=== PATIENT | female | born 1965 | race Caucasian/White ===

== ENCOUNTER 2016-11-06 11:10 | Observation (INO) ==
[2016-11-06] MEDS ORDERED: Nitroglycerin 0.4 MG TAB.SUBL SL ONE (11:14)
[2016-11-06] MEDS: Aspirin 81 MG TAB.CHEW PO ONE ×2 (11:47→11:50)
[2016-11-06 11:49] LABS: Basophils # 0.1 K/mcL (0.0-0.2); Basophils % 0.7 %; Eosinophils # 0.1 K/mcL (0.0-0.6); Eosinophils % 1.2 %; Hematocrit 36.4 % (35.3-44.9); Hemoglobin 12.7 g/dL (11.5-15.4); Immature Granulocytes % 0.5 % (0-4); Lymphocytes # 2.4 K/mcL (0.6-4.6); Lymphocytes % 28.8 %; Mean Corpuscular HGB Conc 34.9 g/dL (31.6-35.5); Mean Corpuscular Hemoglobin 31.4 pg (28.0-33.3); Mean Corpuscular Volume 89.9 fL (83.0-100.0); Mean Platelet Volume 9.6 fL (9.4-12.4); Monocytes # 0.6 K/mcL (0.0-1.3); Monocytes % 6.5 %; Neutrophils # 5.2 K/mcL (1.6-8.9); Platelet Count 268 K/mcL (140-400); Red Blood Count 4.05 M/mcL (3.82-4.97); Red Cell Distribution Width 11.9 % (11.5-14.5); Segmented Neutrophils % 62.3 %
[2016-11-06 11:54] LABS: Prothrombin Time 10.9 Seconds (9.4-12.1)
[2016-11-06 11:56] LABS: Activated Partial Thrombo Time 28.6 Seconds (26.0-36.0)
[2016-11-06 12:08] LABS: BUN/Creatinine Ratio 14 (6-26); Blood Urea Nitrogen 13 mg/dL (7-20); Calcium 9.2 mg/dL (8.6-10.8); Carbon Dioxide 20 mEq/L (19-29); Chloride 110 mEq/L (98-109); Glucose 95 mg/dL (70-99); Osmolality,Calculated 290 (280-300); Potassium 3.7 mEq/L (3.5-4.5); Sodium 140 mEq/L (136-145); eGFR For African Americans > 60 (> 60); eGFR For Non-African Americans > 60 (> 60)
[2016-11-06] MEDS ORDERED: tiZANidine 4 MG TABLET PO PRN (13:56)
[2016-11-06] MEDS: BuPROPion SR (12 HR) 150 MG TABLET PO SCH ×2 (14:23→21:23)
[2016-11-06] MEDS: *HR* OxyCODONE Immed Rel 5 MG TABLET PO PRN ×2 (14:23→23:04)
[2016-11-06] MEDS: Topiramate 25 MG TABLET PO SCH ×2 (14:23→21:22)
[2016-11-06] MEDS: ARIPiprazole 10 MG TABLET PO SCH (14:24)
[2016-11-06] MEDS: Furosemide 40 MG TABLET PO SCH (14:24)
[2016-11-06] MEDS: ALPRAZolam 1 MG TABLET PO PRN ×2 (14:26→19:44)
[2016-11-06] MEDS ORDERED: Naloxone 0.4 MG/ML INJ IVP PRN (14:51)
[2016-11-06] MEDS ORDERED: Acetaminophen 325 MG TABLET PO PRN (14:51)
[2016-11-06] MEDS: lamoTRIgine 25 MG TABLET PO SCH ×2 (16:40→23:04)
[2016-11-06] MEDS: lamoTRIgine 100 MG TABLET PO SCH ×2 (16:40→21:23)
[2016-11-06] MEDS: Ondansetron ODT 4 MG TAB.RAPDIS PO PRN (19:37)
--- NOTE | 2016-11-06 19:56 | Emergency Department Note ---
Disposition Clinical Impression: Chest pain Qualifiers: Chest pain type: unspecified Qualified Code(s): R07.9 - Chest pain, unspecified Disposition: Admitted As Inpatient Condition: Fair General Adult HPI - General Chief complaint: ED Chest Pain Stated complaint: chest pain Time Seen by Provider: 11/06/16 11:14 Source: EMS Limitations: no limitations - History of Present Illness HPI Narrative: 51-year-old female with concern for chest pain. She admits to atypical chest pain over the past 1-2 days. Chest pain is been intermittent. Today the pain was worse and associated with chest pressure. She met that she had an episode of typical chest pain on Saturday. She does have a history of having a stroke and heart attack in the past. She has poor follow-up. She has not recently stressed or cathetered. She denies fever, chills, night sweats. Pain Scale: 5 - Related Data Home Medications Medication Instructions Recorded Confirmed ALPRAZolam [Xanax 1 MG Tablet] 1 mg PO QID PRN 11/24/15 11/06/16 Aripiprazole [Abilify] 15 mg PO DAILY 03/17/16 11/06/16 Cholecalciferol (Vitamin D3) 2,000 unit PO DAILY 03/17/16 11/06/16 [Vitamin D3] Dexlansoprazole [Dexilant] 60 mg PO DAILY 03/17/16 11/06/16 Furosemide [Lasix] 40 mg PO DAILY 03/17/16 11/06/16 Prazosin HCl 2 mg PO HS 03/17/16 11/06/16 Quetiapine Fumarate [Seroquel] 400 mg PO HS 03/17/16 11/06/16 Spironolactone [Aldactone] 25 mg PO DAILY 03/17/16 11/06/16 lamoTRIgine [Lamotrigine] 25 mg PO BID 03/17/16 11/06/16 lamoTRIgine [Lamotrigine] 100 mg PO BID 03/17/16 11/06/16 Acetaminophen [Tylenol] 1,000 mg PO Q6HR PRN 11/06/16 11/06/16 Atorvastatin Calcium [Lipitor] 20 mg PO DAILY 11/06/16 11/06/16 BuPROPion SR (12 HR) [Wellbutrin 150 mg PO BID 11/06/16 11/06/16 SR] Carvedilol 12.5 mg PO BID 11/06/16 11/06/16 Losartan/HCTZ [Hyzaar 50-12.5 1 tab PO DAILY 11/06/16 11/06/16 Tablet] Ondansetron HCl [Zofran] 4 mg PO TID PRN 11/06/16 11/06/16 OxyCODONE Immed Rel [Roxicodone 5 5 mg PO Q8H PRN 11/06/16 11/06/16 MG] Tizanidine HCl [Zanaflex] 4 mg PO TID PRN 11/06/16 11/06/16 Topiramate [Topamax] 50 mg PO BID 11/06/16 11/06/16 traZODone [TraZODone] 50 mg PO HS 11/06/16 11/06/16 Previous Rx's Medication Instructions Recorded Meclizine HCl [Verticalm] 25 mg PO Q6HR #20 tablet 05/08/16 Albuterol Sulfate [Albuterol 1 puff IH Q4HR #1 hfa.aer.ad 09/07/16 Inhaler] Allergies Allergy/AdvReac Type Severity Reaction Status Date / Time aspirin Allergy Rash Verified 09/07/16 12:42 codeine Allergy Swelling Verified 09/07/16 12:42 of Lip/Tongue/Throat Cyclobenzaprine Allergy Rash Verified 09/07/16 12:42 [From Flexeril] gabapentin Allergy Rash Verified 09/07/16 12:42 hydrocodone [From Vicodin] Allergy Rash Verified 09/07/16 12:42 latex Allergy Rash Verified 09/07/16 12:42 tramadol [From Ultram] Allergy Rash Verified 09/07/16 12:42 All systems ED: reviewed and negative except as stated. Past Medical History - Past Medical History Medical history: Reports: COPD, dementia, hyperlipidemia, hypertension, myocardial infarction, other Surgical history: Reports: non-contributory Psychiatric history: Reports: ADHD, bipolar, depression, PTSD, other BOAT CARPENTER history: Reports: no BOAT CARPENTER history - Social History Smoking Status: Current every day smoker Smokeless Tobacco Status: No Alcohol use: Reports: recent Drug use: Reports: none Physical Exam - General Limitations: no limitations General appearance: alert - Head Head exam: atraumatic - Eye Eye exam: Present: normal appearance - ENT ENT exam: normal exam, normal oropharynx - Neck Neck exam: Present: normal inspection, full ROM - Chest Chest inspection: Present: normal inspection - Respiratory Respiratory exam: Present: normal lung sounds bilaterally - Cardiovascular Cardiovascular exam: Present: regular rate, normal rhythm - Abdominal Exam Abdominal exam: Present: soft, Non-Tender - Extremities Exam Extremities exam: Present: normal inspection, full ROM - Expanded Lower Extremity Exam Hip/Pelvis exam: Present: normal inspection, full ROM Upper leg exam: Present: normal inspection, full ROM Knee exam: Present: normal inspection, full ROM Lower leg exam: Present: normal inspection, full ROM Gait: observed and normal - Back Exam Back exam: Present: normal inspection, full ROM - Neurological Exam Neurological exam: Present: alert, oriented X3, CN II-XII intact - Psychiatric Psychiatric exam: Present: normal affect, normal mood - Skin Skin exam: Present: warm, dry Course Vital Signs Temperature 97.6 F 11/06/16 11:11 Pulse Rate 70 11/06/16 11:11 Respiratory Rate 18 11/06/16 11:11 Blood Pressure 94/38 11/06/16 11:11 O2 Sat by Pulse Oximetry 96 11/06/16 11:11 Temperature 97.6 F 11/06/16 11:11 Pulse Rate 73 11/06/16 15:00 Respiratory Rate 18 11/06/16 15:45 Blood Pressure 114/57 11/06/16 15:45 O2 Sat by Pulse Oximetry 96 11/06/16 15:45 Oxygen Delivery Oxygen Delivery Room Air Medical Decision Making - [facility] [place] Narrative Medical decision making narrative: Female patient who admits to both chest pain and chest pressure. No recent stressor cardiac catheterization. Aspirin and nitroglycerin administered. EKG is nondiagnostic for STEMI. Plan to proceed with admission for ACS rule out given heart score greater than 3. Patient stable at time of admission. Discussed case with hospitalist team. - Medical Records Medical records reviewed: Yes I reviewed the patient's medical records. - Lab Data Lab results reviewed: Yes I reviewed the patient's lab results. Result diagrams: 11/06/16 11:33 11/06/16 11:33 Lab Results 11/06/16 11/06/16 11/06/16 Range/Units 11:33 11:33 11:33 WBC 8.4 (4.3-11.1) K/mcL RBC 4.05 (3.82-4.97) M/mcL Hgb 12.7 (11.5-15.4) g/dL Hct 36.4 (35.3-44.9) % MCV 89.9 (83.0-100.0) fL MCH 31.4 (28.0-33.3) pg MCHC 34.9 (31.6-35.5) g/dL RDW 11.9 (11.5-14.5) % Plt Count 268 (140-400) K/mcL MPV 9.6 (9.4-12.4) fL Immature Gran % 0.5 (0-4) % Seg Neutrophils % 62.3 % Lymphocytes % 28.8 % Monocytes % 6.5 % Eosinophils % 1.2 % Basophils % 0.7 % Neutrophils # 5.2 (1.6-8.9) K/mcL Lymphocytes # 2.4 (0.6-4.6) K/mcL Monocytes # 0.6 (0.0-1.3) K/mcL Eosinophils # 0.1 (0.0-0.6) K/mcL Basophils # 0.1 (0.0-0.2) K/mcL PT 10.9 (9.4-12.1) Seconds INR 1.0 APTT 28.6 (26.0-36.0) Seconds D-Dimer 294 (0-500) ng/mLFEU Sodium 140 (136-145) mEq/L Potassium 3.7 (3.5-4.5) mEq/L Chloride 110 H (98-109) mEq/L Carbon Dioxide 20 (19-29) mEq/L BUN 13 (7-20) mg/dL Creatinine 0.93 (0.57-1.11) mg/dL Est GFR ( Amer) > 60 (> 60) Est GFR (Non-Af Amer) > 60 (> 60) BUN/Creatinine Ratio 14 (6-26) Glucose 95 (70-99) mg/dL Calculated Osmolality 290 (280-300) Calcium 9.2 (8.6-10.8) mg/dL Troponin I (0-0.03) ng/mL 11/06/16 Range/Units 11:33 WBC (4.3-11.1) K/mcL RBC (3.82-4.97) M/mcL Hgb (11.5-15.4) g/dL Hct (35.3-44.9) % MCV (83.0-100.0) fL MCH (28.0-33.3) pg MCHC (31.6-35.5) g/dL RDW (11.5-14.5) % Plt Count (140-400) K/mcL MPV (9.4-12.4) fL Immature Gran % (0-4) % Seg Neutrophils % % Lymphocytes % % Monocytes % % Eosinophils % % Basophils % % Neutrophils # (1.6-8.9) K/mcL Lymphocytes # (0.6-4.6) K/mcL Monocytes # (0.0-1.3) K/mcL Eosinophils # (0.0-0.6) K/mcL Basophils # (0.0-0.2) K/mcL PT (9.4-12.1) Seconds INR APTT (26.0-36.0) Seconds D-Dimer (0-500) ng/mLFEU Sodium (136-145) mEq/L Potassium (3.5-4.5) mEq/L Chloride (98-109) mEq/L Carbon Dioxide (19-29) mEq/L BUN (7-20) mg/dL Creatinine (0.57-1.11) mg/dL Est GFR ( Amer) (> 60) Est GFR (Non-Af Amer) (> 60) BUN/Creatinine Ratio (6-26) Glucose (70-99) mg/dL Calculated Osmolality (280-300) Calcium (8.6-10.8) mg/dL Troponin I 0.00 (0-0.03) ng/mL - Radiology Data Radiology results reviewed: Yes I reviewed the patient's radiology results. - EKG Data EKG #1 EKG results narrative: EKG shows sinus rhythm, nonspecific ST segment changes, nonspecific abnormal ECG
[2016-11-06] MEDS ORDERED: traZODone 50 MG TABLET PO SCH (21:00)
[2016-11-07 04:12] LABS: Basophils # 0.1 K/mcL (0.0-0.2); Basophils % 0.7 %; Eosinophils # 0.1 K/mcL (0.0-0.6); Eosinophils % 0.9 %; Hematocrit 38.5 % (35.3-44.9); Immature Granulocytes % 0.3 % (0-4); Lymphocytes # 1.6 K/mcL (0.6-4.6); Lymphocytes % 23.9 %; Mean Corpuscular HGB Conc 33.8 g/dL (31.6-35.5); Mean Corpuscular Hemoglobin 30.4 pg (28.0-33.3); Mean Platelet Volume 9.6 fL (9.4-12.4); Monocytes # 0.4 K/mcL (0.0-1.3); Monocytes % 6.3 %; Neutrophils # 4.6 K/mcL (1.6-8.9); Platelet Count 279 K/mcL (140-400); Red Blood Count 4.28 M/mcL (3.82-4.97); Red Cell Distribution Width 12.2 % (11.5-14.5); Segmented Neutrophils % 67.9 %
[2016-11-07 04:48] LABS: BUN/Creatinine Ratio 14 (6-26); Blood Urea Nitrogen 15 mg/dL (7-20); Calcium 9.5 mg/dL (8.6-10.8); Carbon Dioxide 24 mEq/L (19-29); Chloride 105 mEq/L (98-109); Cholesterol 300 mg/dL (< 200); Glucose 115 mg/dL (70-99); HDL Cholesterol 43 mg/dL (40-59); LDL Cholesterol,Calculated 192 mg/dL (0-99); Osmolality,Calculated 294 (280-300); Potassium 3.3 mEq/L (3.5-4.5); Sodium 141 mEq/L (136-145); Triglycerides 326 mg/dL (< 150); eGFR For African Americans > 60 (> 60); eGFR For Non-African Americans 53 (> 60)
[2016-11-07] MEDS: ALPRAZolam 1 MG TABLET PO PRN ×2 (04:53→09:53)
[2016-11-07] MEDS: Ondansetron ODT 4 MG TAB.RAPDIS PO PRN (04:54)
[2016-11-07] MEDS ORDERED: Regadenoson 0.4 MG/5 ML SYRINGE IVP ONE (06:02)
[2016-11-07] MEDS ORDERED: Cholecalciferol (D-3) 1,000 UNIT TABLET PO SCH (09:00)
[2016-11-07] MEDS ORDERED: Spironolactone 25 MG TABLET PO SCH (09:00)
[2016-11-07] MEDS ORDERED: Losartan/HCTZ 50-12.5 TABLET PO SCH (09:00)
[2016-11-07] MEDS: *HR* OxyCODONE Immed Rel 5 MG TABLET PO PRN (09:53)
[2016-11-07] MEDS: lamoTRIgine 100 MG TABLET PO SCH (09:53)
[2016-11-07] MEDS: BuPROPion SR (12 HR) 150 MG TABLET PO SCH (09:53)
[2016-11-07] MEDS: lamoTRIgine 25 MG TABLET PO SCH (09:53)
[2016-11-07] MEDS: Furosemide 40 MG TABLET PO SCH (09:53)
[2016-11-07] MEDS: Topiramate 25 MG TABLET PO SCH (09:53)
[2016-11-07] MEDS: ARIPiprazole 10 MG TABLET PO SCH (09:54)
--- NOTE | 2016-11-07 09:57 | Internal Med History&Physical ---
Date of Encounter: 11/06/16 Time of Encounter: 14:00 Assessment and Plan (1) Chest pain Current visit: Yes Status: Acute Patient presents with atypical chest pain, ongoing for the last 10 days. She does have multiple chronic complaints including neck and back pain, anxiety and depression. Continue telemetry monitoring and cycle troponins. EKG shows normal sinus rhythm with no ischemic changes. Continue beta patti, ARB, statin. We will get nuclear stress test in a.m. 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 Qualifiers: Chest pain type: precordial pain Qualified Code(s): R07.2 - Precordial pain (2) Depression Current visit: Yes Status: Chronic Patient is noted to be on multiple psychotropic medications including benzodiazepines, SSRIs and antipsychotics. Continue home medications. Qualifiers: Depression Type: unspecified Qualified Code(s): F32.9 - Major depressive disorder, single episode, unspecified (3) PTSD (post-traumatic stress disorder) Current visit: Yes Status: Chronic (4) Anxiety Current visit: Yes Status: Chronic (5) HTN (hypertension) Current visit: Yes Status: Chronic Blood pressure noted to be well controlled. Patient is also noted to be on 2 diuretics, unclear why. Continue beta patti and ARB. Qualifiers: Hypertension type: essential hypertension Qualified Code(s): I10 - Essential (primary) hypertension (6) Tobacco abuse Current visit: Yes Status: Chronic Patient reports trying to cut down on her smoking, currently down to half pack per day. Requests nicotine transdermal patch while in the hospital. Internal Medicine - H&P: HPI Chief complaint: Chest pain Admitted From: Emergency Dept Plans for Post Hospital Care: Home History of present illness: Ms. Aranda is a 51 year old female with history of chronic pain, anxiety, depression and PTSD presents with complaints of 10 day history of chest pain. Patient reports that she has had similar chest pains in the past and also had a related hospitalization, but her pain is worse and longer-lasting this time. She reports stabbing chest pain associated with heaviness, moderate to severe in intensity, radiating from the center of her chest to her mid back and sometimes feels like an "electrical shock". Chest pain is associated with anxiety and shortness of breath but no diaphoresis, nausea, vomiting, dizziness or syncope. She has been a chronic heavy smoker, smoking up to 4 packs per day but is currently down to half pack per day. Past Med Surg Social Fam HX - Past Medical History Medical history: CHF, COPD, hyperlipidemia, hypertension, other Psychiatric history: ADHD, bipolar, depression, PTSD, other - Past Surgical History Surgical History: cholecystectomy, thyroidectomy (Partial) - Social History Smoking Status: Current every day smoker Smokeless Tobacco Status: No Alcohol use: occasionally, recent Drug use: none Occupational status: disabled Current living situation: Home Activity Level: Uses cane/walker Recent Out of Country Travel Within the Last 8 Weeks: No - Family History Father Hx Family Cardiac Disorders: Yes Internal Medicine - H&P: Meds ALPRAZolam [Xanax 1 MG Tablet] 1 mg PO QID PRN 11/24/15 [History] Aripiprazole [Abilify] 15 mg PO DAILY 03/17/16 [History] Cholecalciferol (Vitamin D3) [Vitamin D3] 2,000 unit PO DAILY 03/17/16 [History] Dexlansoprazole [Dexilant] 60 mg PO DAILY 03/17/16 [History] Furosemide [Lasix] 40 mg PO DAILY 03/17/16 [History] Prazosin HCl 2 mg PO HS 03/17/16 [History] Quetiapine Fumarate [Seroquel] 400 mg PO HS 03/17/16 [History] Spironolactone [Aldactone] 25 mg PO DAILY 03/17/16 [History] lamoTRIgine [Lamotrigine] 25 mg PO BID 03/17/16 [History] lamoTRIgine [Lamotrigine] 100 mg PO BID 03/17/16 [History] Meclizine HCl [Verticalm] 25 mg PO Q6HR #20 tablet 05/08/16 [Rx] Albuterol Sulfate [Albuterol Inhaler] 1 puff IH Q4HR #1 hfa.aer.ad 09/07/16 [Rx] Acetaminophen [Tylenol] 1,000 mg PO Q6HR PRN 11/06/16 [History] Atorvastatin Calcium [Lipitor] 20 mg PO DAILY 11/06/16 [History] BuPROPion SR (12 HR) [Wellbutrin SR] 150 mg PO BID 11/06/16 [History] Carvedilol 12.5 mg PO BID 11/06/16 [History] Losartan/HCTZ [Hyzaar 50-12.5 Tablet] 1 tab PO DAILY 11/06/16 [History] Ondansetron HCl [Zofran] 4 mg PO TID PRN 11/06/16 [History] OxyCODONE Immed Rel [Roxicodone 5 MG] 5 mg PO Q8H PRN 11/06/16 [History] Tizanidine HCl [Zanaflex] 4 mg PO TID PRN 11/06/16 [History] Topiramate [Topamax] 50 mg PO BID 11/06/16 [History] traZODone [TraZODone] 50 mg PO HS 11/06/16 [History] Allergies aspirin Allergy (Verified 09/07/16 12:42) Rash codeine Allergy (Verified 09/07/16 12:42) Swelling of Lip/Tongue/Throat Cyclobenzaprine [From Flexeril] Allergy (Verified 09/07/16 12:42) Rash gabapentin Allergy (Verified 09/07/16 12:42) Rash hydrocodone [From Vicodin] Allergy (Verified 09/07/16 12:42) Rash latex Allergy (Verified 09/07/16 12:42) Rash tramadol [From Ultram] Allergy (Verified 09/07/16 12:42) Rash All Systems PM: A 10-system review of systems was performed and is negative for pertinent findings except as documented above in the HPI. - Constitutional Constitutional: no chills, no fever(s), no night sweats - EENT Eyes: no change in vision, no discharge, no pain, no photophobia Ears: no ear discharge, no ear pain, no tinnitus Nose, mouth and throat: no dysphagia, no nasal discharge, no neck pain, no sore throat - Cardiovascular Cardiovascular ROS IM: chest pain, dyspnea - Respiratory Respiratory: dyspnea - Gastrointestinal Gastrointestinal: no abdominal pain, no diarrhea, no hematemesis, no hematochezia, no melena, no nausea, no vomiting - Genitourinary Genitourinary: no change in urinary stream, no dysuria, no flank pain, no hematuria - Musculoskeletal Musculoskeletal ROS IM: back pain, neck pain, tingling - Integumentary Integumentary IM: no rash, no unusual bruising - Neurological Neurological ROS: numbness, tingling, weakness - Hematologic/Lymphatic Hematologic/Lymphatic: no easy bruising - Constitutional Vitals: Temp Pulse Resp BP Pulse Ox 98 F 80 18 119/65 97 11/07/16 07:00 11/07/16 07:00 11/07/16 07:00 11/07/16 07:00 11/07/16 07:00 General appearance: Present: A&O X 3, answers questions appropriately - Respiratory Respiratory exam: Present: CTAB. Absent: accessory muscle use, rales, rhonchi, wheezes - Cardiovascular Cardiovascular exam: Present: RRR, +S1, +S2. Absent: diastolic murmur, gallop, rubs, systolic murmur - GI/Abdominal GI/Abdominal exam: Present: normal bowel sounds, soft, no peritoneal signs. Absent: distended, tenderness - Extremities Exam Extremities exam: Present: full ROM, warm, radial pulses palpable and symetrical. Absent: calf tenderness, cyanotic, pedal edema - Neurological Exam Neurological exam: Present: CN II-XII intact, oriented X3, no focal deficits. Absent: pronater drift, facial droop, speech deficit - Skin Skin exam: Present: dry, intact Internal Med - H&P Results - Labs CBC & Chem 7: 11/07/16 03:27 11/07/16 03:27 Labs: Short CBC 11/07/16 Range/Units 03:27 WBC 6.8 (4.3-11.1) K/mcL Hgb 13.0 (11.5-15.4) g/dL Hct 38.5 (35.3-44.9) % Plt Count 279 (140-400) K/mcL Neutrophils # 4.6 (1.6-8.9) K/mcL BMP 11/07/16 03:27 Sodium 141 Potassium 3.3 L Chloride 105 Carbon Dioxide 24 BUN 15 Creatinine 1.09 Glucose 115 H Calcium 9.5 Cardiac Enzymes 11/06/16 11/07/16 11/07/16 Range/Units 17:24 00:13 03:27 Troponin I 0.00 0.00 0.00 (0-0.03) ng/mL - EKG Data -: EKG Interpreted by Myself EKG shows normal: sinus rhythm Rate: normal
--- NOTE | 2016-11-07 11:29 | Electrocardiograph Report ---
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
[2016-11-07 11:44] VITALS: BP 124/78
--- NOTE | 2016-11-07 11:53 | Nuclear Medicine Stress Report ---
Regadenoson Nuclear Stress Name: Yue Aranda Date of Study: 11/07/2016 Date: 1965 Ht: 60.0 in Medical Record#: [id number] Age: 51 Wt: 182.0 lb Gender: Female Order #: [id number] Location: [facility] Room: [facility] Supervising Provider: Uvaldo Rolon CNP Reading Physician: Jerod Darden DO, FAC, FASNM Ordering Physician: Anson Lares MD Primary Care Physician: None Stress Technologist: Jeremias Castellanos CRT Recreational Therapy Technician: Charlene Ponce Indications: Chest Pain Impression: Pharmacologic stress ECG is negative for ischemia at level of heart rate achieved. Gated EF = 69%. Small size, mild intensity, reversible apical anterior defect, which spares the apex. Although this could represent a small area of ischemia, I suspect it is due to artifact. History: Hypertension Hypercholesteremia History of Smoking Stress Test Summary: Stress Test Type: Pharmacologic Regadenoson 0.4mg/5ml given IV Baseline Information: Initial Heart Rate: 82 Blood Pressure: 117/74 Stress Information: Stress Time: 4 min 00 sec Test Terminated Due to (primary): As per protocol Maximum Blood Pressure: 112/70 Maximum Heart Rate: 98 Percent Maximum Heart Rate Achieved: 59 Double Product: 12407 METS Reached: 1 Symptoms: Nausea, Vomiting Nuclear Summary: SPECT myocardial perfusion imaging using Tc99m Sestamibi given intravenously was performed at rest and following cardiac stress testing. The resting images were obtained following initial dose of 11.8 mCi. Following stress an additional dose of 31 mCi was given at peak exercise or 30 seconds post regadenoson infusion. Medication Given: Time Medication Dose Units Route 08:00 Aminophylline 5 ml IV Findings: Stress Note * Resting ECG demonstrated normal sinus rhythm. * No baseline arrhythmias were noted. * Pharmacologic stress ECG is negative for ischemia at level of heart rate achieved. * No arrhythmias were noted during stress. * Patient had no chest pain during stress. * Normal hemodynamic responses to pharmacologic stress. Study Quality * Study quality is average. Gated EF % * Gated EF = 69%. Left Ventricle * The left ventricle is not dilated. LVEDV = 54 mL. NORMALS * Normal wall motion. * Normal Segmental Perfusion in rest. Anterior Perfusion Stress * The apical anterior segment shows a mild reduction in perfusion. TID * No evidence of transient ischemic dilatation. TID ratio = 1.07. Lung Uptake * There is no evidence of increase lung uptake. Updated by Jerod Darden DO, ULISES, LUIS, VENU on 11/07/2016 11:47:18 AM electronically signed on 11/07/2016 11:48:09 AM with status of Final
--- NOTE | 2016-11-07 13:01 | Discharge Summary ---
Date of Encounter: 11/07/16 Time of Encounter: 12:58 - Discharge Diagnosis (1) Chest pain Priority: Primary Status: Acute Qualifiers: Chest pain type: intercostal pain Qualified Code(s): R07.82 - Intercostal pain (2) HTN (hypertension) Priority: Secondary Status: Chronic Qualifiers: Hypertension type: essential hypertension Qualified Code(s): I10 - Essential (primary) hypertension (3) Tobacco abuse Priority: Secondary Status: Chronic - Discharge Medications Home Medications: ALPRAZolam [Xanax 1 MG Tablet] 1 mg PO QID PRN 11/24/15 [History] Aripiprazole [Abilify] 15 mg PO DAILY 03/17/16 [History] Cholecalciferol (Vitamin D3) [Vitamin D3] 2,000 unit PO DAILY 03/17/16 [History] Dexlansoprazole [Dexilant] 60 mg PO DAILY 03/17/16 [History] Furosemide [Lasix] 40 mg PO DAILY 03/17/16 [History] Prazosin HCl 2 mg PO HS 03/17/16 [History] Quetiapine Fumarate [Seroquel] 400 mg PO HS 03/17/16 [History] Spironolactone [Aldactone] 25 mg PO DAILY 03/17/16 [History] lamoTRIgine [Lamotrigine] 25 mg PO BID 03/17/16 [History] lamoTRIgine [Lamotrigine] 100 mg PO BID 03/17/16 [History] Meclizine HCl [Verticalm] 25 mg PO Q6HR #20 tablet 05/08/16 [Rx] Albuterol Sulfate [Albuterol Inhaler] 1 puff IH Q4HR #1 hfa.aer.ad 09/07/16 [Rx] Acetaminophen [Tylenol] 1,000 mg PO Q6HR PRN 11/06/16 [History] Atorvastatin Calcium [Lipitor] 20 mg PO DAILY 11/06/16 [History] BuPROPion SR (12 HR) [Wellbutrin SR] 150 mg PO BID 11/06/16 [History] Carvedilol 12.5 mg PO BID 11/06/16 [History] Losartan/HCTZ [Hyzaar 50-12.5 Tablet] 1 tab PO DAILY 11/06/16 [History] Ondansetron HCl [Zofran] 4 mg PO TID PRN 11/06/16 [History] OxyCODONE Immed Rel [Roxicodone 5 MG] 5 mg PO Q8H PRN 11/06/16 [History] Tizanidine HCl [Zanaflex] 4 mg PO TID PRN 11/06/16 [History] Topiramate [Topamax] 50 mg PO BID 11/06/16 [History] traZODone [TraZODone] 50 mg PO HS 11/06/16 [History] Allergies/Adverse Reactions: Allergies aspirin Allergy (Verified 09/07/16 12:42) Rash codeine Allergy (Verified 09/07/16 12:42) Swelling of Lip/Tongue/Throat Cyclobenzaprine [From Flexeril] Allergy (Verified 09/07/16 12:42) Rash gabapentin Allergy (Verified 09/07/16 12:42) Rash hydrocodone [From Vicodin] Allergy (Verified 09/07/16 12:42) Rash latex Allergy (Verified 09/07/16 12:42) Rash tramadol [From Ultram] Allergy (Verified 09/07/16 12:42) Rash Procedures/tests Complete & Pending: Procedures Performed prior 72 hours Category Date Time Status NM esteban perf SPECT multi [NM] Routine Exams 11/06/16 14:53 Taken SP pharm nuclear stress Routine Y 11/07/16 07:00 Completed - Notes to Outpatient Provider 1. Consider Holter monitoring testing as an outpatient for her palpitations and lightheadedness. 2. Consider increasing the dose of omeprazole to twice a day given her chest pain that is burning in sensation in the middle of her chest. Date of admission: 11/06/16 12:50 Primary care physician: PCP NO Discharging clinician: Anson Lares Anticipated date of discharge: 11/07/16 - Patient Status Disposition: Home, Self-Care Condition: Good Functional capacity at discharge: independent ambulation Overall status at discharge: patient is progressing back to baseline - Discharge Instructions Follow Up With: Jose Eduardo Page [Non-Partnered Physician] - 11/22/16 11:30 am Forms: ED Satisfaction Letter - Diet and Activity Activity: increase activity as tolerated Diet: low fat, low cholesterol, low salt diet Hospital course: Ms. Aranda is a 51 year old female with a history of hypertension and tobacco abuse, anxiety and PTSD who presented to the emergency room due to chest pain that has been going on since Saturday. Patient was placed under observation. Cardiac enzymes were cycled and after day were negative, the patient underwent a pharmacological stress test. Follow-up logical stress test reveals a very small, reversible perfusion defect. According to the feet, this is more consistent with an artifact than reversible ischemia. Patient states that she has an appointment with cardiology coming up soon. She has been instructed to discuss with her design maintenance engineer regarding her palpitations and stabbing chest pains. On exam, patient does have reproducible chest wall tenderness in the middle of the chest. Counseled regarding smoking cessation. - Time Spent with Patient Total time spent providing and/or coordinating discharge services: - Constitutional Vitals: Temp Pulse Resp BP Pulse Ox 98.1 F 74 18 124/78 96 11/07/16 11:43 11/07/16 11:43 11/07/16 11:43 11/07/16 11:43 11/07/16 11:43 General appearance: Present: A&O X 3, answers questions appropriately Exam: Gen.: Lying in bed. No acute distress. Chest: Clear to auscultation bilaterally. No adventitious sounds present. Reproducible midline chest wall tenderness present. CVS: First and second heart sounds present. No murmurs, rubs or gallops.
[2016-11-07] MEDS ORDERED: Levalbuterol Neb 1.25 MG/3 ML IH ONE (22:54)
== END 2016-11-07 15:38 | disposition home or self-care (01) ==
LOC: 2NENU 11:10 → EMEROO 11:10 → 2NENU 13:24
PROVIDERS: ADMIT Internal Medicine; ATTEND Internal Medicine Sleep Medicine

== ENCOUNTER 2016-11-12 10:59 | Observation (INO) ==
--- NOTE | 2016-11-12 11:07 | Emergency Department Note ---
START Narrative - START START: Start note: The patient was seen in the hallway due to lack of available medical beds. She states she went to bed at 11 PM last night without symptoms. She awoke at 8 AM which is 3 hours prior to arrival with symptoms. She states she feels strange. She has left-sided weakness, especially her arm. Her speech is slurred. Acute stroke alert was not activated due to onset of symptoms and completely certain-possibly as long as 12 hours ago. Initial orders placed. EKG reviewed by me
--- NOTE | 2016-11-12 11:26 | Emergency Department Note ---
Disposition Clinical Impression: Transient cerebral ischemia Disposition: Admitted As Inpatient Condition: Fair General Adult HPI - General Chief complaint: ED Neuro Symptoms/Deficit Stated complaint: neuro Time Seen by Provider: 11/12/16 11:04 Source: patient, EMS Limitations: no limitations - History of Present Illness Pain Scale: 0 - Related Data Home Medications Medication Instructions Recorded Confirmed ALPRAZolam [Xanax 1 MG Tablet] 1 mg PO QID PRN 11/24/15 11/12/16 Aripiprazole [Abilify] 15 mg PO DAILY 03/17/16 11/12/16 Cholecalciferol (Vitamin D3) 2,000 unit PO DAILY 03/17/16 11/12/16 [Vitamin D3] Dexlansoprazole [Dexilant] 60 mg PO DAILY 03/17/16 11/12/16 Furosemide [Lasix] 40 mg PO DAILY 03/17/16 11/12/16 Prazosin HCl 2 mg PO HS 03/17/16 11/12/16 Quetiapine Fumarate [Seroquel] 400 mg PO HS 03/17/16 11/12/16 Spironolactone [Aldactone] 25 mg PO DAILY 03/17/16 11/12/16 lamoTRIgine [Lamotrigine] 25 mg PO BID 03/17/16 11/12/16 lamoTRIgine [Lamotrigine] 100 mg PO BID 03/17/16 11/12/16 Acetaminophen [Tylenol] 1,000 mg PO Q6HR PRN 11/06/16 11/12/16 Atorvastatin Calcium [Lipitor] 20 mg PO DAILY 11/06/16 11/12/16 BuPROPion SR (12 HR) [Wellbutrin 150 mg PO BID 11/06/16 11/12/16 SR] Carvedilol 12.5 mg PO BID 11/06/16 11/12/16 Losartan/HCTZ [Hyzaar 50-12.5 1 tab PO DAILY 11/06/16 11/12/16 Tablet] Ondansetron HCl [Zofran] 4 mg PO TID PRN 11/06/16 11/12/16 OxyCODONE Immed Rel [Roxicodone 5 5 mg PO Q8H PRN 11/06/16 11/12/16 MG] Tizanidine HCl [Zanaflex] 4 mg PO TID PRN 11/06/16 11/12/16 Topiramate [Topamax] 50 mg PO BID 11/06/16 11/12/16 traZODone [TraZODone] 50 mg PO HS 11/06/16 11/12/16 Previous Rx's Medication Instructions Recorded Meclizine HCl [Verticalm] 25 mg PO Q6HR #20 tablet 05/08/16 Albuterol Sulfate [Albuterol 1 puff IH Q4HR #1 hfa.aer.ad 09/07/16 Inhaler] Allergies Allergy/AdvReac Type Severity Reaction Status Date / Time aspirin Allergy Rash Verified 09/07/16 12:42 codeine Allergy Swelling Verified 09/07/16 12:42 of Lip/Tongue/Throat Cyclobenzaprine Allergy Rash Verified 09/07/16 12:42 [From Flexeril] gabapentin Allergy Rash Verified 09/07/16 12:42 hydrocodone [From Vicodin] Allergy Rash Verified 09/07/16 12:42 latex Allergy Rash Verified 09/07/16 12:42 tramadol [From Ultram] Allergy Rash Verified 09/07/16 12:42 Past Medical History - Past Medical History Medical history: Reports: CHF, COPD, CVA, hyperlipidemia, hypertension, other Surgical history: Reports: cholecystectomy, thyroidectomy (Partial) Psychiatric history: Reports: ADHD, bipolar, depression, PTSD, 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 - Social History Smoking Status: Current every day smoker Smokeless Tobacco Status: No Alcohol use: Reports: occasionally Drug use: Reports: none Physical Exam - General Limitations: no limitations General appearance: alert, in no apparent distress Course Vital Signs Temperature 97.6 F 11/12/16 11:01 Pulse Rate 84 11/12/16 11:01 Respiratory Rate 16 11/12/16 11:01 Blood Pressure 152/83 11/12/16 11:01 O2 Sat by Pulse Oximetry 98 11/12/16 11:01 Temperature 98.0 F 11/12/16 19:20 Pulse Rate 82 11/12/16 19:20 Respiratory Rate 16 11/12/16 20:36 Blood Pressure 144/76 11/12/16 19:20 O2 Sat by Pulse Oximetry 96 11/12/16 20:36 Oxygen Delivery Oxygen Delivery Room Air Medical Decision Making - Lab Data Result diagrams: 11/12/16 11:54 11/12/16 11:54 Lab Results 11/12/16 11/12/16 11/12/16 Range/Units 11:03 11:54 11:54 WBC 5.2 (4.3-11.1) K/mcL RBC 3.76 L (3.82-4.97) M/mcL Hgb 11.8 (11.5-15.4) g/dL Hct 34.6 L (35.3-44.9) % MCV 92.0 (83.0-100.0) fL MCH 31.4 (28.0-33.3) pg MCHC 34.1 (31.6-35.5) g/dL RDW 12.2 (11.5-14.5) % Plt Count 277 (140-400) K/mcL MPV 9.3 L (9.4-12.4) fL Immature Gran % 0.6 (0-4) % Seg Neutrophils % 45.1 % Lymphocytes % 42.6 % Monocytes % 8.6 % Eosinophils % 2.1 % Basophils % 1.0 % Neutrophils # 2.4 (1.6-8.9) K/mcL Lymphocytes # 2.2 (0.6-4.6) K/mcL Monocytes # 0.5 (0.0-1.3) K/mcL Eosinophils # 0.1 (0.0-0.6) K/mcL Basophils # 0.1 (0.0-0.2) K/mcL Sodium 141 (136-145) mEq/L Potassium 3.6 (3.5-4.5) mEq/L Chloride 107 (98-109) mEq/L Carbon Dioxide 27 (19-29) mEq/L BUN 23 H (7-20) mg/dL Creatinine 0.99 (0.57-1.11) mg/dL Est GFR ( Amer) > 60 (> 60) Est GFR (Non-Af Amer) 59 L (> 60) BUN/Creatinine Ratio 23 (6-26) Glucose 93 (70-99) mg/dL POC Glucose 94 H (58-89) Calculated Osmolality 295 (280-300) Calcium 8.9 (8.6-10.8) mg/dL Total Bilirubin 0.2 (0.2-1.2) mg/dL AST 31 (5-34) Units/L ALT 39 (0-55) Units/L Alkaline Phosphatase 126 (38-126) Units/L Troponin I (0-0.03) ng/mL Serum Total Protein 6.8 (6.0-8.3) g/dL Albumin 3.4 L (3.5-5.0) g/dL Globulin 3.4 (2.4-3.5) g/dL Albumin/Globulin Ratio 1.0 L (1.1-2.2) 11/12/16 Range/Units 11:54 WBC (4.3-11.1) K/mcL RBC (3.82-4.97) M/mcL Hgb (11.5-15.4) g/dL Hct (35.3-44.9) % MCV (83.0-100.0) fL MCH (28.0-33.3) pg MCHC (31.6-35.5) g/dL RDW (11.5-14.5) % Plt Count (140-400) K/mcL MPV (9.4-12.4) fL Immature Gran % (0-4) % Seg Neutrophils % % Lymphocytes % % Monocytes % % Eosinophils % % Basophils % % Neutrophils # (1.6-8.9) K/mcL Lymphocytes # (0.6-4.6) K/mcL Monocytes # (0.0-1.3) K/mcL Eosinophils # (0.0-0.6) K/mcL Basophils # (0.0-0.2) K/mcL Sodium (136-145) mEq/L Potassium (3.5-4.5) mEq/L Chloride (98-109) mEq/L Carbon Dioxide (19-29) mEq/L BUN (7-20) mg/dL Creatinine (0.57-1.11) mg/dL Est GFR ( Amer) (> 60) Est GFR (Non-Af Amer) (> 60) BUN/Creatinine Ratio (6-26) Glucose (70-99) mg/dL POC Glucose (58-89) Calculated Osmolality (280-300) Calcium (8.6-10.8) mg/dL Total Bilirubin (0.2-1.2) mg/dL AST (5-34) Units/L ALT (0-55) Units/L Alkaline Phosphatase (38-126) Units/L Troponin I 0.00 (0-0.03) ng/mL Serum Total Protein (6.0-8.3) g/dL Albumin (3.5-5.0) g/dL Globulin (2.4-3.5) g/dL Albumin/Globulin Ratio (1.1-2.2) Attestation Statement - Attestation Attestation: I examined this patient and my medical decision-making was reviewed with the Resident Physician. I agree with the documented findings, disposition and treatment plan as described except to the extent set forth below. [id number] time provided Patient seen and evaluated in conjunction with the resident physician Dr. Tompkins. See my start note for further details
--- NOTE | 2016-11-12 11:37 | Emergency Department Note ---
Disposition Clinical Impression: Transient cerebral ischemia Qualifiers: Transient cerebral ischemia type: other Qualified Code(s): G45.8 - Other transient cerebral ischemic attacks and related syndromes Disposition: Admitted As Inpatient Condition: Fair Referrals: NO,PCP [Primary Care Provider] - Forms: ED Satisfaction Letter Time of Disposition: 12:56 Neuro HPI - General Chief Complaint: ED Neuro Symptoms/Deficit Stated Complaint: neuro Time Seen by Provider: 11/12/16 11:04 Source: patient, EMS Limitations: no limitations Nursing Notes Reviewed: Yes Vital Signs Reviewed: Yes - History of Present Illness HPI Narrative: 51-year-old female with CHF, HTN, HLD, COPD complaining of left-sided blurry vision, slurred speech and facial droop, this was noted per her this morning at 8 AM, when she woke up, she did wake up with symptoms. Patient went to bed at 11:00p yesterday asymptomatic. Patient states that her symptoms have been improving. She was recently admitted for chest pain last week, they said that they found an area of blockage, on records review showed an atypical stress test however was discharged with plan for outpatient left heart catheter. Patient denies any chest pain abdominal pain or headache at this time. She states that her left side feels somewhat weaker. She denies dysuria hematuria, weight changes, nausea, vomiting, diarrhea, constipation. Symptom Onset Unknown: Yes Timing confirmed by: spouse Location: left face, left arm History of same: No Severity: mild Quality: weakness Symptoms Improving: Yes Improves with: time Worsens with: none Context: present upon awakening On Anticoagulants: No - Related Data Home Medications: Home Medications Medication Instructions Recorded Confirmed ALPRAZolam [Xanax 1 MG Tablet] 1 mg PO QID PRN 11/24/15 11/06/16 Aripiprazole [Abilify] 15 mg PO DAILY 03/17/16 11/06/16 Cholecalciferol (Vitamin D3) 2,000 unit PO DAILY 03/17/16 11/06/16 [Vitamin D3] Dexlansoprazole [Dexilant] 60 mg PO DAILY 03/17/16 11/06/16 Furosemide [Lasix] 40 mg PO DAILY 03/17/16 11/06/16 Prazosin HCl 2 mg PO HS 03/17/16 11/06/16 Quetiapine Fumarate [Seroquel] 400 mg PO HS 03/17/16 11/06/16 Spironolactone [Aldactone] 25 mg PO DAILY 03/17/16 11/06/16 lamoTRIgine [Lamotrigine] 25 mg PO BID 03/17/16 11/06/16 lamoTRIgine [Lamotrigine] 100 mg PO BID 03/17/16 11/06/16 Acetaminophen [Tylenol] 1,000 mg PO Q6HR PRN 11/06/16 11/06/16 Atorvastatin Calcium [Lipitor] 20 mg PO DAILY 11/06/16 11/06/16 BuPROPion SR (12 HR) [Wellbutrin 150 mg PO BID 11/06/16 11/06/16 SR] Carvedilol 12.5 mg PO BID 11/06/16 11/06/16 Losartan/HCTZ [Hyzaar 50-12.5 1 tab PO DAILY 11/06/16 11/06/16 Tablet] Ondansetron HCl [Zofran] 4 mg PO TID PRN 11/06/16 11/06/16 OxyCODONE Immed Rel [Roxicodone 5 5 mg PO Q8H PRN 11/06/16 11/06/16 MG] Tizanidine HCl [Zanaflex] 4 mg PO TID PRN 11/06/16 11/06/16 Topiramate [Topamax] 50 mg PO BID 11/06/16 11/06/16 traZODone [TraZODone] 50 mg PO HS 11/06/16 11/06/16 Previous Rx's Medication Instructions Recorded Meclizine HCl [Verticalm] 25 mg PO Q6HR #20 tablet 05/08/16 Albuterol Sulfate [Albuterol 1 puff IH Q4HR #1 hfa.aer.ad 09/07/16 Inhaler] Allergies/Adverse Reactions: Allergies Allergy/AdvReac Type Severity Reaction Status Date / Time aspirin Allergy Rash Verified 09/07/16 12:42 codeine Allergy Swelling Verified 09/07/16 12:42 of Lip/Tongue/Throat Cyclobenzaprine Allergy Rash Verified 09/07/16 12:42 [From Flexeril] gabapentin Allergy Rash Verified 09/07/16 12:42 hydrocodone [From Vicodin] Allergy Rash Verified 09/07/16 12:42 latex Allergy Rash Verified 09/07/16 12:42 tramadol [From Ultram] Allergy Rash Verified 09/07/16 12:42 All systems ED: reviewed and negative except as stated. Constitutional: Reports: weakness. Denies: fever, chills Cardiovascular: Denies: chest pain Respiratory: Denies: cough, dyspnea Gastrointestinal: Denies: abdominal pain, nausea Genitourinary: Denies: urgency, dysuria Musculoskeletal: Denies: back pain Neurological: Reports: as per HPI, weakness. Denies: headache, paresthesias, confusion, abnormal gait Psychiatric: Denies: anxiety, depression Past Medical History - Past Medical History Attestation: Yes The following information was validated with the patient. 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 - Social History Smoking Status: Current every day smoker Smokeless Tobacco Status: No Alcohol use: Reports: occasionally Drug use: Reports: none Physical Exam Constitutional: alert and oriented, in NAD, vital signs reviewed and wnl HEENT: NCAT, sclera anicteric, PERRLA bilaterally, EOMI Neck: normal inspection, neck is supple, trachea midline Resp: normal chest inspection, CTA bilaterally, no resp distress CV: RRR, no m/g/r GI: normal inspection, Soft, NTND, BS present Back: normal inspection, no tenderness to palpation Neuro: A&O3, gait normal, CN II-XII grossly intact bilaterally, DTRs +2/4 bilateral UE and LE, 5/5 MS bilateral UE and LE, +left arm droop slight, finger to nose intact, MINDI intact and wnl MSK: normal inspection, bilateral UE and LE with normal ROM Psych: normal mood, normal affect Skin: No rashes, skin warm, dry, intact - General Limitations: no limitations General appearance: alert, in no apparent distress Course Course Narrative: 51-year-old female with signs and symptoms concerning of acute CVA however her symptoms have been improving, and she woke up with symptoms last and well was approximately 11 PM last night, therefore the patient is outside window for stroke alert for greater than 12 hours, we will get a stat CT scan, basic lab work including CBC CMP troponin, EKG and reassess. - Reevaluation(s) Reevaluation #1: I reevaluated the patient, and I will give her an NIH of 0, she has no appreciable deficits, her CT scan was negative, I spoke with Dr. 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 sheehan she will admit the patient at this point concerning for CVA versus TIA, admission for stroke rule out MRI is hemodynamically stable at the time of ED disposition Time: 12:55 Vital Signs Temperature 97.6 F 11/12/16 11:01 Pulse Rate 84 11/12/16 11:01 Respiratory Rate 16 11/12/16 11:01 Blood Pressure 152/83 11/12/16 11:01 O2 Sat by Pulse Oximetry 98 11/12/16 11:01 Temperature 97.6 F 11/12/16 11:01 Pulse Rate 84 11/12/16 11:01 Respiratory Rate 16 11/12/16 11:01 Blood Pressure 152/83 11/12/16 11:01 O2 Sat by Pulse Oximetry 98 11/12/16 11:01 Oxygen Delivery Oxygen Delivery Room Air Neuro Symptoms/Deficit - MDM Narrative Medical decision making narrative: 51-year-old female with possible TIA, stroke symptoms have improved, last known well was 12 hours prior to ED arrival, CT negative, aspirin withheld due to the 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 - Lab Data Lab results reviewed: Yes I reviewed the patient's lab results. Result diagrams: 11/12/16 11:54 11/12/16 11:54 Lab Results 11/12/16 11/12/16 11/12/16 Range/Units 11:03 11:54 11:54 WBC 5.2 (4.3-11.1) K/mcL RBC 3.76 L (3.82-4.97) M/mcL Hgb 11.8 (11.5-15.4) g/dL Hct 34.6 L (35.3-44.9) % MCV 92.0 (83.0-100.0) fL MCH 31.4 (28.0-33.3) pg MCHC 34.1 (31.6-35.5) g/dL RDW 12.2 (11.5-14.5) % Plt Count 277 (140-400) K/mcL MPV 9.3 L (9.4-12.4) fL Immature Gran % 0.6 (0-4) % Seg Neutrophils % 45.1 % Lymphocytes % 42.6 % Monocytes % 8.6 % Eosinophils % 2.1 % Basophils % 1.0 % Neutrophils # 2.4 (1.6-8.9) K/mcL Lymphocytes # 2.2 (0.6-4.6) K/mcL Monocytes # 0.5 (0.0-1.3) K/mcL Eosinophils # 0.1 (0.0-0.6) K/mcL Basophils # 0.1 (0.0-0.2) K/mcL Sodium 141 (136-145) mEq/L Potassium 3.6 (3.5-4.5) mEq/L Chloride 107 (98-109) mEq/L Carbon Dioxide 27 (19-29) mEq/L BUN 23 H (7-20) mg/dL Creatinine 0.99 (0.57-1.11) mg/dL Est GFR ( Amer) > 60 (> 60) Est GFR (Non-Af Amer) 59 L (> 60) BUN/Creatinine Ratio 23 (6-26) Glucose 93 (70-99) mg/dL POC Glucose 94 H (58-89) Calculated Osmolality 295 (280-300) Calcium 8.9 (8.6-10.8) mg/dL Total Bilirubin 0.2 (0.2-1.2) mg/dL AST 31 (5-34) Units/L ALT 39 (0-55) Units/L Alkaline Phosphatase 126 (38-126) Units/L Serum Total Protein 6.8 (6.0-8.3) g/dL Albumin 3.4 L (3.5-5.0) g/dL Globulin 3.4 (2.4-3.5) g/dL Albumin/Globulin Ratio 1.0 L (1.1-2.2) - Radiology Data Radiology results reviewed: Yes I reviewed the patient's radiology results. Head CT 11/12/16 11:04 IMPRESSION: No acute intracranial abnormality. D/ / Zhou Egan MD / Zhou Egan MD Interpreting Provider: Zhou Egan MD - EKG Data EKG attestation: Yes I reviewed and interpreted this EKG. EKG shows normal: sinus rhythm (90 bpm ME 158 QRS 93 QTC 410 inferior Q waves in leads 3 seen on previous EKG, no new ST segment elevations) Q waves: III Interpretation: nonspecific ST-T wave changes NIH Stroke Scale - Level of Consciousness LOC: Alert - LOC Questions LOC Questions: Answers both correctly - LOC Commands LOC Commands: Performs both correctly - Best Gaze Best Gaze: Normal - Visual Visual: No visual loss - Facial Palsy Facial Palsy: Normal - Motor Arms Motor Arm-Left: Drift, does NOT hit bed Motor Arm-Right: No drift for 10 seconds - Motor Legs Motor Leg-Left: No drift for 5 seconds Motor Leg-Right: No drift for 5 seconds - Limb Ataxia Limb Ataxia: Absent of affected limb too weak to perform exam - Sensory Sensory: Normal - Best Language Best Language: No aphasia - Dysarthria Dysarthria: Normal - Extinction and Inattention Extinction and Inattention: Normal - NIHSS Total Score NIHSS Total Score: 1 TPA Checklist - LKW: 3-4.5 hrs Add. Warnings/Precautions Patient/family understanding: The patient/family members have been counseled and understood the risk, benefit , and alternatives of treatment.
--- NOTE | 2016-11-12 11:51 | Electrocardiograph Report ---
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
[2016-11-12 12:03] LABS: Basophils # 0.1 K/mcL (0.0-0.2); Eosinophils # 0.1 K/mcL (0.0-0.6); Eosinophils % 2.1 %; Hematocrit 34.6 % (35.3-44.9); Hemoglobin 11.8 g/dL (11.5-15.4); Immature Granulocytes % 0.6 % (0-4); Lymphocytes # 2.2 K/mcL (0.6-4.6); Lymphocytes % 42.6 %; Mean Corpuscular HGB Conc 34.1 g/dL (31.6-35.5); Mean Corpuscular Hemoglobin 31.4 pg (28.0-33.3); Mean Platelet Volume 9.3 fL (9.4-12.4); Monocytes # 0.5 K/mcL (0.0-1.3); Monocytes % 8.6 %; Neutrophils # 2.4 K/mcL (1.6-8.9); Platelet Count 277 K/mcL (140-400); Red Blood Count 3.76 M/mcL (3.82-4.97); Red Cell Distribution Width 12.2 % (11.5-14.5); Segmented Neutrophils % 45.1 %
[2016-11-12 12:15] LABS: Alanine Aminotransferase 39 Units/L (0-55); Albumin 3.4 g/dL (3.5-5.0); Alkaline Phosphatase 126 Units/L (38-126); Aspartate Amino Transferase 31 Units/L (5-34); BUN/Creatinine Ratio 23 (6-26); Bilirubin,Total 0.2 mg/dL (0.2-1.2); Blood Urea Nitrogen 23 mg/dL (7-20); Calcium 8.9 mg/dL (8.6-10.8); Carbon Dioxide 27 mEq/L (19-29); Chloride 107 mEq/L (98-109); Globulin 3.4 g/dL (2.4-3.5); Glucose 93 mg/dL (70-99); Osmolality,Calculated 295 (280-300); Potassium 3.6 mEq/L (3.5-4.5); Sodium 141 mEq/L (136-145); Total Protein 6.8 g/dL (6.0-8.3); eGFR For African Americans > 60 (> 60); eGFR For Non-African Americans 59 (> 60)
[2016-11-12] MEDS ORDERED: Naloxone 0.4 MG/ML INJ IVP PRN (14:11)
[2016-11-12] MEDS ORDERED: Acetaminophen 325 MG TABLET PO PRN (14:11)
[2016-11-12] MEDS ORDERED: tiZANidine 4 MG TABLET PO PRN (14:28)
--- NOTE | 2016-11-12 15:15 | Internal Med History&Physical ---
Date of Encounter: 11/12/16 Time of Encounter: 15:03 Assessment and Plan (1) Transient cerebral ischemia Current visit: Yes Status: Acute Patient presents with left sided facial droop and slurred speech, resolved by the time of my assessment. She also reports left sided weakness, but reports this has been going on with her for months. CT of head showed no acute intracranial abnormality. EKG showed sinus rhythm. 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 Cholesterol significantly elevated on 11/07 admission, will increase atorvastatin to 40mg Daily given risk factors of HTN, obesity, smoking and FMH MRI of head and brain carotid dopplers echocardiogram Neurology consulted. Qualifiers: Transient cerebral ischemia type: unspecified Qualified Code(s): G45.9 - Transient cerebral ischemic attack, unspecified (2) Chest pain Current visit: No Status: Acute Patient reports occasional chest heaviness on and off. 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 Qualifiers: Chest pain type: precordial pain Qualified Code(s): R07.2 - Precordial pain (3) Anxiety Current visit: Yes Status: Chronic Continue home doses of medications. (4) HTN (hypertension) Current visit: Yes Status: Chronic Blood pressure has been controlled since arrival. Patient with mild renal insufficiency today with GFR of 59. Continue home doses of Coreg, and prazosin. Hold lasix, Hyzaar and spiranolactone and recheck chemistry. Qualifiers: Hypertension type: essential hypertension Qualified Code(s): I10 - Essential (primary) hypertension (5) Tobacco abuse Current visit: Yes Status: Chronic patient reports smoking < 1/2 PPD, down from a maximum of 4PPD. She is trying to quit, offered encouragement. Smoking cessation education and nicotine patch ordered. (6) DVT prophylaxis Current visit: Yes Status: Acute anti-embolic stockings lovenox 40mg SQ daily Internal Medicine - H&P: HPI Chief complaint: left sided facial droop and slurred speech Admitted From: Emergency Dept Plans for Post Hospital Care: Home History of present illness: Ms. Aranda is a 51 year old female with hypertension, hyperlipidemia, COPD, CHF, bipolar disorder, presented to the emergency department today with complaints of left-sided facial droop and weakness, slurred speech. Patient reports that she woke up this morning she was having symptoms, last known well was last evening before she went to sleep. anxiety, depression. Patient reports she was having left eye blurry vision, her mouth was drooping, and her speech was slurred, she also felt weaker on her left side. She reports occasional lightheadedness, occasional chest heaviness, denies any palpitations or shortness of breath. She denies any nausea or vomiting, abdominal pain or diarrhea. She reports chills and sweats. She was recently admitted for chest pain which revealed abnormal stress test and she was advised to get an left heart catheter as an outpatient. Evaluation in the ED included EKG which showed Sinus Rhythm with no ST elevations. Head CT showed no acut inctracranial abnormality. On exam, patient alert and oriented in no distress. Heart has regular rate and rhythm, lungs clear bilaterally to auscultation. No facial droop or speech deficit on exam. Cranial nerves intact. No pronator drift. She does have mild weakness in left upper extremity. Past Med Surg Social Fam HX - Past Medical History Medical history: CHF, COPD, CVA, hyperlipidemia, hypertension, other Psychiatric history: ADHD, bipolar, depression, PTSD, other - Past Surgical History Surgical History: cholecystectomy, orthopedic, other (neck surgery), thyroidectomy (Partial) - Social History Smoking Status: Current every day smoker Smokeless Tobacco Status: No Alcohol use: occasionally Drug use: none - Family History Father Living Status: Cause of : CVA Hx Family Cardiac Disorders: Yes Brother Living Status: Age at : 42 Cause of : OR Mother Living Status: Still Living Hx Family Cardiac Disorders: Yes Internal Medicine - H&P: Meds ALPRAZolam [Xanax 1 MG Tablet] 1 mg PO QID PRN 11/24/15 [History] Aripiprazole [Abilify] 15 mg PO DAILY 03/17/16 [History] Cholecalciferol (Vitamin D3) [Vitamin D3] 2,000 unit PO DAILY 03/17/16 [History] Dexlansoprazole [Dexilant] 60 mg PO DAILY 03/17/16 [History] Furosemide [Lasix] 40 mg PO DAILY 03/17/16 [History] Prazosin HCl 2 mg PO HS 03/17/16 [History] Quetiapine Fumarate [Seroquel] 400 mg PO HS 03/17/16 [History] Spironolactone [Aldactone] 25 mg PO DAILY 03/17/16 [History] lamoTRIgine [Lamotrigine] 25 mg PO BID 03/17/16 [History] lamoTRIgine [Lamotrigine] 100 mg PO BID 03/17/16 [History] Meclizine HCl [Verticalm] 25 mg PO Q6HR #20 tablet 05/08/16 [Rx] Albuterol Sulfate [Albuterol Inhaler] 1 puff IH Q4HR #1 hfa.aer.ad 09/07/16 [Rx] Acetaminophen [Tylenol] 1,000 mg PO Q6HR PRN 11/06/16 [History] Atorvastatin Calcium [Lipitor] 20 mg PO DAILY 11/06/16 [History] BuPROPion SR (12 HR) [Wellbutrin SR] 150 mg PO BID 11/06/16 [History] Carvedilol 12.5 mg PO BID 11/06/16 [History] Losartan/HCTZ [Hyzaar 50-12.5 Tablet] 1 tab PO DAILY 11/06/16 [History] Ondansetron HCl [Zofran] 4 mg PO TID PRN 11/06/16 [History] OxyCODONE Immed Rel [Roxicodone 5 MG] 5 mg PO Q8H PRN 11/06/16 [History] Tizanidine HCl [Zanaflex] 4 mg PO TID PRN 11/06/16 [History] Topiramate [Topamax] 50 mg PO BID 11/06/16 [History] traZODone [TraZODone] 50 mg PO HS 11/06/16 [History] Allergies aspirin Allergy (Verified 09/07/16 12:42) Rash codeine Allergy (Verified 09/07/16 12:42) Swelling of Lip/Tongue/Throat Cyclobenzaprine [From Flexeril] Allergy (Verified 09/07/16 12:42) Rash gabapentin Allergy (Verified 09/07/16 12:42) Rash hydrocodone [From Vicodin] Allergy (Verified 09/07/16 12:42) Rash latex Allergy (Verified 09/07/16 12:42) Rash tramadol [From Ultram] Allergy (Verified 09/07/16 12:42) Rash All Systems PM: A 10-system review of systems was performed and is negative for pertinent findings except as documented above in the HPI. - Constitutional Constitutional: chills, night sweats, weakness, no fever(s) - EENT Eyes: blurry vision (left eye), no change in vision, no discharge, no pain, no photophobia Ears: no ear discharge, no ear pain, no tinnitus Nose, mouth and throat: no dysphagia, no nasal discharge, no neck pain, no sore throat - Cardiovascular Cardiovascular ROS IM: chest pain (heaviness), lightheadedness, no diaphoresis, no dyspnea, no palpitations, no syncope - Respiratory Respiratory: no cough, no dyspnea, no wheezing, no excessive phlegm production - Gastrointestinal Gastrointestinal: no abdominal pain, no diarrhea, no hematemesis, no hematochezia, no melena, no nausea, no vomiting - Genitourinary Genitourinary: no change in urinary stream, no dysuria, no flank pain, no hematuria - Musculoskeletal Musculoskeletal ROS IM: no numbness, no tingling - Integumentary Integumentary IM: no rash, no unusual bruising - Neurological Neurological ROS: abnormal speech (slurred speech), focal weakness (left side), no confusion, no convulsions, no numbness, no tingling, no tremor(s) - Hematologic/Lymphatic Hematologic/Lymphatic: no easy bruising - Constitutional Vitals: Temp Pulse Resp BP Pulse Ox 97.6 F 71 16 141/72 100 11/12/16 11:01 11/12/16 12:28 11/12/16 13:18 11/12/16 13:18 11/12/16 12:28 General appearance: Present: A&O X 3, pleasant, no acute distress - Head Head exam: Present: atraumatic, normocephalic - Eye Eye exam: Present: PERRL, conjuntiva pink, sclera anicteric Pupils: Present: PERRL - Neck Neck exam general surgery: Present: supple, trachea midline. Absent: lymphadenopathy - Respiratory Respiratory exam: Present: CTAB. Absent: accessory muscle use, rales, rhonchi, wheezes - Cardiovascular Cardiovascular exam: Present: RRR, +S1, +S2. Absent: diastolic murmur, gallop, rubs, systolic murmur - GI/Abdominal GI/Abdominal exam: Present: normal bowel sounds, soft, no peritoneal signs. Absent: distended, tenderness - Extremities Exam Extremities exam: Present: warm, radial pulses palpable and symetrical. Absent : calf tenderness, cyanotic, pedal edema - Neurological Exam Neurological exam: Present: CN II-XII intact, oriented X3, no focal deficits. Absent: strengths equal and symetr throughout, facial droop, speech deficit - Expanded Neurological Exam Patient oriented to: Present: person, place, time Speech: Present: fluid speech Cranial Nerves: EOM's intact PM: Normal, gag reflex PM: Normal, nystagmus PM: Normal, tongue deviation PM: Normal Cerebellar function: finger to nose: Normal Upper motor neuron: pronator drift: Normal Neuro motor strength exam: LUE: 4, RUE: 5, LLE: 5, RLE: 5 - Skin Skin exam: Present: dry, intact Internal Med - H&P Results - Labs CBC & Chem 7: 11/12/16 11:54 11/12/16 11:54 Labs: All Lab Results (24 Hours) 11/12/16 11/12/16 11/12/16 Range/Units 11:03 11:54 11:54 WBC 5.2 (4.3-11.1) K/mcL RBC 3.76 L (3.82-4.97) M/mcL Hgb 11.8 (11.5-15.4) g/dL Hct 34.6 L (35.3-44.9) % MCV 92.0 (83.0-100.0) fL MCH 31.4 (28.0-33.3) pg MCHC 34.1 (31.6-35.5) g/dL RDW 12.2 (11.5-14.5) % Plt Count 277 (140-400) K/mcL MPV 9.3 L (9.4-12.4) fL Immature Gran % 0.6 (0-4) % Seg Neutrophils % 45.1 % Lymphocytes % 42.6 % Monocytes % 8.6 % Eosinophils % 2.1 % Basophils % 1.0 % Neutrophils # 2.4 (1.6-8.9) K/mcL Lymphocytes # 2.2 (0.6-4.6) K/mcL Monocytes # 0.5 (0.0-1.3) K/mcL Eosinophils # 0.1 (0.0-0.6) K/mcL Basophils # 0.1 (0.0-0.2) K/mcL Sodium 141 (136-145) mEq/L Potassium 3.6 (3.5-4.5) mEq/L Chloride 107 (98-109) mEq/L Carbon Dioxide 27 (19-29) mEq/L BUN 23 H (7-20) mg/dL Creatinine 0.99 (0.57-1.11) mg/dL Est GFR ( Amer) > 60 (> 60) Est GFR (Non-Af Amer) 59 L (> 60) BUN/Creatinine Ratio 23 (6-26) Glucose 93 (70-99) mg/dL POC Glucose 94 H (58-89) Calculated Osmolality 295 (280-300) Calcium 8.9 (8.6-10.8) mg/dL Total Bilirubin 0.2 (0.2-1.2) mg/dL AST 31 (5-34) Units/L ALT 39 (0-55) Units/L Alkaline Phosphatase 126 (38-126) Units/L Troponin I (0-0.03) ng/mL Serum Total Protein 6.8 (6.0-8.3) g/dL Albumin 3.4 L (3.5-5.0) g/dL Globulin 3.4 (2.4-3.5) g/dL Albumin/Globulin Ratio 1.0 L (1.1-2.2) 11/12/16 Range/Units 11:54 WBC (4.3-11.1) K/mcL RBC (3.82-4.97) M/mcL Hgb (11.5-15.4) g/dL Hct (35.3-44.9) % MCV (83.0-100.0) fL MCH (28.0-33.3) pg MCHC (31.6-35.5) g/dL RDW (11.5-14.5) % Plt Count (140-400) K/mcL MPV (9.4-12.4) fL Immature Gran % (0-4) % Seg Neutrophils % % Lymphocytes % % Monocytes % % Eosinophils % % Basophils % % Neutrophils # (1.6-8.9) K/mcL Lymphocytes # (0.6-4.6) K/mcL Monocytes # (0.0-1.3) K/mcL Eosinophils # (0.0-0.6) K/mcL Basophils # (0.0-0.2) K/mcL Sodium (136-145) mEq/L Potassium (3.5-4.5) mEq/L Chloride (98-109) mEq/L Carbon Dioxide (19-29) mEq/L BUN (7-20) mg/dL Creatinine (0.57-1.11) mg/dL Est GFR ( Amer) (> 60) Est GFR (Non-Af Amer) (> 60) BUN/Creatinine Ratio (6-26) Glucose (70-99) mg/dL POC Glucose (58-89) Calculated Osmolality (280-300) Calcium (8.6-10.8) mg/dL Total Bilirubin (0.2-1.2) mg/dL AST (5-34) Units/L ALT (0-55) Units/L Alkaline Phosphatase (38-126) Units/L Troponin I 0.00 (0-0.03) ng/mL Serum Total Protein (6.0-8.3) g/dL Albumin (3.5-5.0) g/dL Globulin (2.4-3.5) g/dL Albumin/Globulin Ratio (1.1-2.2) - Diagnostic Studies CT scan - head Additional comments: Head CT 11/12/16 11:04 IMPRESSION: No acute intracranial abnormality. D/ / Zhou Egan MD / Zhou Egan MD Interpreting Provider: Zhou Egan MD Chest x-ray Additional comments:
[2016-11-12] MEDS ORDERED: Nicotine 21 MG PATCH.TD24 TD SCH (15:30)
--- NOTE | 2016-11-12 17:13 | Neurology - Consult Note ---
Date of Encounter: 11/12/16 Time of Encounter: 17:09 Assessment and Plan (1) Left-sided weakness Current Visit: Yes Status: Acute Certainly this patient does have stroke risk factors as mentioned earlier. We will therefore obtain an MRI scan of the head, will check carotid Doppler study and echocardiogram. Stroke orders should be implemented. She is allergic to aspirin, therefore I agree with Lovenox. Risk factor management is paramount. Statin therapy and antihypertensives are indicated. Highly recommend smoking cessation. Further recommendations will be made pending the outcome of the MRI scan. History of Present Illness HPI: Ms. Aranda is a 51 year old female seen for neurologic evaluation secondary to strokelike symptoms. She informs me that shortly after 8:00 this morning when she awakened she developed left-sided weakness, numbness of the face, left jaw pain and then experienced difficulty with blurred vision and impaired speech. Most of the symptoms were resolved by the time she arrived at the ED. She still has some residual weakness of the left arm. Initial CT scan of the head was negative. She does have stroke risk factors including hypertension, hyperlipidemia, and cigarette smoking. She is apparently allergic to aspirin and was not given aspirin in the ED. Currently she is sitting up in bed awake and alert without any acute distress. Past Med Surg Social Fam HX - Past Medical History Medical history: CHF, COPD, CVA, hyperlipidemia, hypertension, other Psychiatric history: ADHD, bipolar, depression, PTSD, other - Past Surgical History Surgical History: cholecystectomy, orthopedic, other (neck surgery), thyroidectomy (Partial) - Social History Smoking Status: Current every day smoker Packs per day: 1 Smokeless Tobacco Status: No Alcohol use: occasionally Drug use: none - Family History Brother Living Status: Age at : 42 Cause of : MA Mother Living Status: Still Living Hx Family Cardiac Disorders: Yes Father Living Status: Cause of : CVA Hx Family Cardiac Disorders: Yes Medications and Allergies ALPRAZolam [Xanax 1 MG Tablet] 1 mg PO QID PRN 11/24/15 [History] Aripiprazole [Abilify] 15 mg PO DAILY 03/17/16 [History] Cholecalciferol (Vitamin D3) [Vitamin D3] 2,000 unit PO DAILY 03/17/16 [History] Dexlansoprazole [Dexilant] 60 mg PO DAILY 03/17/16 [History] Furosemide [Lasix] 40 mg PO DAILY 03/17/16 [History] Prazosin HCl 2 mg PO HS 03/17/16 [History] Quetiapine Fumarate [Seroquel] 400 mg PO HS 03/17/16 [History] Spironolactone [Aldactone] 25 mg PO DAILY 03/17/16 [History] lamoTRIgine [Lamotrigine] 25 mg PO BID 03/17/16 [History] lamoTRIgine [Lamotrigine] 100 mg PO BID 03/17/16 [History] Meclizine HCl [Verticalm] 25 mg PO Q6HR #20 tablet 05/08/16 [Rx] Albuterol Sulfate [Albuterol Inhaler] 1 puff IH Q4HR #1 hfa.aer.ad 09/07/16 [Rx] Acetaminophen [Tylenol] 1,000 mg PO Q6HR PRN 11/06/16 [History] Atorvastatin Calcium [Lipitor] 20 mg PO DAILY 11/06/16 [History] BuPROPion SR (12 HR) [Wellbutrin SR] 150 mg PO BID 11/06/16 [History] Carvedilol 12.5 mg PO BID 11/06/16 [History] Losartan/HCTZ [Hyzaar 50-12.5 Tablet] 1 tab PO DAILY 11/06/16 [History] Ondansetron HCl [Zofran] 4 mg PO TID PRN 11/06/16 [History] OxyCODONE Immed Rel [Roxicodone 5 MG] 5 mg PO Q8H PRN 11/06/16 [History] Tizanidine HCl [Zanaflex] 4 mg PO TID PRN 11/06/16 [History] Topiramate [Topamax] 50 mg PO BID 11/06/16 [History] traZODone [TraZODone] 50 mg PO HS 11/06/16 [History] Allergies aspirin Allergy (Verified 09/07/16 12:42) Rash codeine Allergy (Verified 09/07/16 12:42) Swelling of Lip/Tongue/Throat Cyclobenzaprine [From Flexeril] Allergy (Verified 09/07/16 12:42) Rash gabapentin Allergy (Verified 09/07/16 12:42) Rash hydrocodone [From Vicodin] Allergy (Verified 09/07/16 12:42) Rash latex Allergy (Verified 09/07/16 12:42) Rash tramadol [From Ultram] Allergy (Verified 09/07/16 12:42) Rash All Systems: A 10-system review of systems was performed and is negative for pertinent findings except as documented above in the HPI. Review of Systems: A 10 point review of systems is consistent with a history of present illness and otherwise negative. Physical Examination - Vital Signs Vital Signs: Initial Vital Signs Temp Pulse Resp BP Pulse Ox 97.6 F 84 16 152/83 98 11/12/16 11:01 11/12/16 11:01 11/12/16 11:01 11/12/16 11:01 11/12/16 11:01 - Exam Exam: Neurologic examination is performed and finds the following: Cerebral functions-she is alert and oriented to person place and time, follows commands and answers questions appropriately. No agnosia, aphasia, or apraxia are identified. Cranial nerve exam-pupils are equal and reactive to light and accommodation. Extraocular motility is intact. Sensory to face is intact. There is no facial asymmetry identified. I do not identify a left facial droop at this time. Hearing is intact symmetrically speech is not dysarthric. Soft palate elevates bilaterally upon phonation. Tongue protrudes midline. Cerebellar exam-no dysdiadochokinesis or dysmetria or present. She performs finger-nose and [id number] without ataxia. Motor exam-she does have giveaway weakness of the left upper extremity. However she has normal tone of the left upper extremity. She has slight giveaway weakness of the right upper extremity. She has weakness of the left lower extremity. She has normal strength of the right lower extremity. No involuntary movements or atrophy are present. Sensory exam-light touch, deep touch, vibratory, and proprioception are all intact. Deep tendon reflexes are 2/4 symmetrically throughout. No long tract signs are present. Results - Laboratory Findings CBC and BMP: 11/12/16 11:54 11/12/16 11:54 Abnormal lab findings: Abnormal lab results RBC 3.76 M/mcL (3.82-4.97) L 11/12/16 11:54 Hct 34.6 % (35.3-44.9) L 11/12/16 11:54 MPV 9.3 fL (9.4-12.4) L 11/12/16 11:54 BUN 23 mg/dL (7-20) H 11/12/16 11:54 Est GFR (Non-Af Amer) 59 (> 60) L 11/12/16 11:54 POC Glucose 94 (58-89) H 11/12/16 11:03 Albumin 3.4 g/dL (3.5-5.0) L 11/12/16 11:54 Albumin/Globulin Ratio 1.0 (1.1-2.2) L 11/12/16 11:54 Consult Discharge Plan - Plan Referrals: NO,PCP [Primary Care Provider] -
[2016-11-12] MEDS: ALPRAZolam 1 MG TABLET PO PRN (18:07)
[2016-11-12] MEDS ORDERED: Ondansetron 4 MG/2 ML VIAL IVP PRN (19:18)
[2016-11-12] MEDS: lamoTRIgine 100 MG TABLET PO SCH (20:48)
[2016-11-12] MEDS: lamoTRIgine 25 MG TABLET PO SCH (20:48)
[2016-11-12] MEDS: BuPROPion SR (12 HR) 150 MG TABLET PO SCH (20:49)
[2016-11-12] MEDS: Topiramate 25 MG TABLET PO SCH (20:49)
[2016-11-12] MEDS: traZODone 50 MG TABLET PO SCH (22:35)
[2016-11-12] MEDS: Nicotine 7 MG PATCH.TD24 TD SCH (22:39)
[2016-11-13 02:28] LABS: Basophils # 0.1 K/mcL (0.0-0.2); Basophils % 0.8 %; Eosinophils # 0.1 K/mcL (0.0-0.6); Eosinophils % 1.7 %; Hematocrit 33.9 % (35.3-44.9); Hemoglobin 11.4 g/dL (11.5-15.4); Immature Granulocytes % 0.3 % (0-4); Immature Platelets 2.3 % (1.1-6.1); Lymphocytes # 2.4 K/mcL (0.6-4.6); Lymphocytes % 35.6 %; Mean Corpuscular HGB Conc 33.6 g/dL (31.6-35.5); Mean Corpuscular Hemoglobin 30.3 pg (28.0-33.3); Mean Corpuscular Volume 90.2 fL (83.0-100.0); Mean Platelet Volume 9.4 fL (9.4-12.4); Monocytes # 0.4 K/mcL (0.0-1.3); Monocytes % 6.6 %; Neutrophils # 3.7 K/mcL (1.6-8.9); Platelet Count 320 K/mcL (140-400); Red Blood Count 3.76 M/mcL (3.82-4.97); Red Cell Distribution Width 12.1 % (11.5-14.5)
[2016-11-13 02:44] LABS: BUN/Creatinine Ratio 17 (6-26); Blood Urea Nitrogen 18 mg/dL (7-20); Carbon Dioxide 28 mEq/L (19-29); Chloride 107 mEq/L (98-109); Glucose 117 mg/dL (70-99); Osmolality,Calculated 299 (280-300); Potassium 3.3 mEq/L (3.5-4.5); Sodium 143 mEq/L (136-145); eGFR For African Americans > 60 (> 60); eGFR For Non-African Americans 56 (> 60)
[2016-11-13] MEDS: *HR* Enoxaparin 40 MG/0.4 ML SYRINGE SQ SCH (06:03)
--- NOTE | 2016-11-13 06:43 | Electrocardiograph Report ---
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
[2016-11-13] MEDS ORDERED: Furosemide 40 MG TABLET PO SCH (09:00)
[2016-11-13] MEDS ORDERED: Losartan/HCTZ 50-12.5 TABLET PO SCH (09:00)
[2016-11-13] MEDS ORDERED: Spironolactone 25 MG TABLET PO SCH (09:00)
[2016-11-13] MEDS: ARIPiprazole 10 MG TABLET PO SCH (10:15)
[2016-11-13] MEDS: lamoTRIgine 100 MG TABLET PO SCH ×2 (10:16→20:21)
[2016-11-13] MEDS: Topiramate 25 MG TABLET PO SCH ×2 (10:16→20:20)
[2016-11-13] MEDS: lamoTRIgine 25 MG TABLET PO SCH ×2 (10:16→20:21)
[2016-11-13] MEDS: BuPROPion SR (12 HR) 150 MG TABLET PO SCH ×2 (10:16→20:20)
[2016-11-13] MEDS: Dexlansoprazole [Dexilant] 60 MG PO SCH (10:17)
[2016-11-13] MEDS: Nicotine 7 MG PATCH.TD24 TD SCH (10:17)
[2016-11-13] MEDS: ALPRAZolam 1 MG TABLET PO PRN ×2 (10:53→17:43)
--- NOTE | 2016-11-13 13:33 | Carotid Imaging Report ---
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 Recommendations: After imaging the patient returned to their room. Findings Carotid Duplex: Archibald scale imaging combined with Doppler flow analysis suggests normal findings bilaterally. Right: The right proximal common carotid artery has a PSV of 80 cm/s and a EDV of 15 cm/s. The right mid common carotid artery has a PSV of 79 cm/s and a EDV of 19 cm/s. The right distal common carotid artery has a PSV of 78 cm/s and a EDV of 23 cm/s. The right bifurcation has a PSV of 68 cm/s and a EDV of 25 cm/s. The right proximal internal carotid artery has a PSV of 80 cm/s and a EDV of 30 cm/s. The right mid internal carotid artery has a PSV of 88 cm/s and a EDV of 35 cm/s. The right distal internal carotid artery has a PSV of 103 cm/s and a EDV of 42 cm/s. The right eca has a PSV of 97 cm/s and a EDV of 17 cm/s. The right vertebral artery has a PSV of 48 cm/s and a EDV of 13 cm/s. Left: The left proximal common carotid artery has a PSV of 90 cm/s and a EDV of 19 cm/s. The left mid common carotid artery has a PSV of 82 cm/s and a EDV of 21 cm/s. The left distal common carotid artery has a PSV of 76 cm/s and a EDV of 21 cm/s. The left bifurcation has a PSV of 59 cm/s and a EDV of 18 cm/s. The left proximal internal carotid artery has a PSV of 82 cm/s and a EDV of 28 cm/s. The left mid internal carotid artery has a PSV of 98 cm/s and a EDV of 36 cm/s. The left distal internal carotid artery has a PSV of 93 cm/s and a EDV of 29 cm/s. The left eca has a PSV of 108 cm/s and a EDV of 19 cm/s. The left vertebral artery has a PSV of 57 cm/s and a EDV of 15 cm/s. Prior Study: No prior study available for comparison. Carotid Results Right PSV EDV Assessment Proximal CCA 80 15 Normal Mid CCA 79 19 Normal Distal CCA 78 23 Normal Bifurcation 68 25 Normal Proximal ICA 80 30 Normal Mid ICA 88 35 Normal Distal ICA 103 42 Normal ECA 97 17 Normal Vertebral Artery 48 13 Normal Left PSV EDV Assessment Proximal CCA 90 19 Normal Mid CCA 82 21 Normal Distal CCA 76 21 Normal Bifurcation 59 18 Normal Proximal ICA 82 28 Normal Mid ICA 98 36 Normal Distal ICA 93 29 Normal ECA 108 19 Normal Vertebral Artery 57 15 Normal Ratio's Right ICA/CCA Ratio: 1.30 ICA/CCA Values: 103/79 Left ICA/CCA Ratio: 1.20 ICA/CCA Values: 98/82 Updated by Danie Harrison MD, FACS on 11/13/2016 1:26:20 PM Danie Harrison MD electronically signed on 11/13/2016 1:26:53 PM with status of Final
--- NOTE | 2016-11-13 15:17 | Electrocardiograph Report ---
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
--- NOTE | 2016-11-13 15:58 | Internal Med Progress Note ---
Date of Encounter: 11/13/16 Time of Encounter: 10:05 - Assessment and plan (1) Transient cerebral ischemia Current Visit: Yes Status: Acute Assessment and plan: Patient presented to the emergency department with complaint of left-sided facial droop and slurred speech. He resolved by the time she was admitted. She also reported left-sided weakness but stated he has been going on for months. CT of head was negative for any acute abnormalities. EKG was normal sinus rhythm. She has been evaluated by neurology. She has been placed on a statin and Lovenox subcutaneous daily at this time. She is allergic to aspirin. Carotid Dopplers were negative, MRI of the head and brain were negative for acute stroke or abnormality. Patient reports extreme weakness this morning and was unable to complete neurological exam. She also was unable to complete echocardiogram due to chest pain. I reassessed her this afternoon and she appears to be significantly better and has been up walking around her room without difficulty. She says she still feels tired, although she pierced significantly better per my assessment and also states that she feels better. We will continue the echocardiogram tomorrow. Neurology recommends aggressive lifestyle modifications. 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 Qualifiers: Transient cerebral ischemia type: unspecified Qualified Code(s): G45.9 - Transient cerebral ischemic attack, unspecified (2) Chest pain Current Visit: No Status: Acute Assessment and plan: Patient reports occasional and intermittent chest heaviness on and off. She was admitted for this last week and stress test showed small, mild reversible defect most consistent with artifact, but she was instructed to follow-up with steel crane operator and consider [facility] on outpatient basis. Patient had echocardiogram today that she was unable to complete, there were incomplete views and not enough data to complete the test. Patient states that she had a sharp pain "right in my heart that I could not breathe." This made it impossible for her to complete the test. Patient states that she will try to get him in the morning. Troponins were negative. Chest x-ray was negative for pulmonary disease on 11/06. Telemetry Treat chest pain Echo in the morning Monitor labs Qualifiers: Chest pain type: precordial pain Qualified Code(s): R07.2 - Precordial pain (3) Anxiety Current Visit: Yes Status: Chronic Assessment and plan: Chronic. Continue home medication. (4) HTN (hypertension) Current Visit: Yes Status: Chronic Assessment and plan: Controlled in inpatient setting. Continue home medications. Qualifiers: Hypertension type: essential hypertension Qualified Code(s): I10 - Essential (primary) hypertension (5) Tobacco abuse Current Visit: Yes Status: Chronic Assessment and plan: Patient states that she has been taking Wellbutrin and has cut back to about 5 cigarettes per day. She is currently wearing a nicotine patch. We discussed smoking cessation and she said that she would like to have nicotine patches for home. (6) Depression Current Visit: No Status: Chronic Assessment and plan: Chronic. Continue home medication. Qualifiers: Depression Type: unspecified Qualified Code(s): F32.9 - Major depressive disorder, single episode, unspecified (7) DVT prophylaxis Current Visit: Yes Status: Acute Assessment and plan: Patient is ambulatory. Also Lovenox subcutaneous daily. - Time Spent With Patient less than 15 minutes - Subjective Interval history: Patient was seen and assessed this morning at 10:05 AM. She is resting quietly in her bed on her left side, male visitor in chair at bedside. Patient states she feels very weak, she is short of breath with narrow exam. She is neurologically intact, however she is noticeably short of breath with only moving her limbs in the bed. She is very weak, poor effort with narrow exam. Primary nurse says that he did not experience this during assessment. I saw her again at about 1545 this afternoon to discuss her echo results. Patient states that she is much better, she has been walking around her room, and although she feels tired, she is no longer short of breath and denies feeling weak. Per echo report she was unable to complete the test and it is recommended that she finish it when she feels better. We will once again try to get on the morning. Patient states that she had a very sharp chest pain right in her heart that prevented her from finishing the test at the time. She has been seen by neurology and has been started on aspirin and statin, she is taking Wellbutrin and has nicotine patches. She says she smokes 5 cigarettes a day would be interested in having nicotine patches for home. - Constitutional Vitals: Temp Pulse Resp BP Pulse Ox 98.1 F 84 16 106/70 95 11/13/16 11:41 11/13/16 11:41 11/13/16 11:41 11/13/16 11:41 11/13/16 11:41 General appearance: Present: cooperative, A&O X 3, pleasant, no acute distress, answers questions appropriately - Head Head exam: Present: normal inspection - Eye Eye exam: Present: EOMI, normal appearance, conjuntiva pink. Absent: nystagmus - ENT ENT exam: Present: mucous membranes moist, normal exam, normal external ear exam - Neck Neck exam general surgery: Present: full ROM, normal inspection. Absent: lymphadenopathy, tenderness, nuchal rigidity - Respiratory Respiratory exam: Present: CTAB. Absent: chest wall tenderness, rales, respiratory distress, rhonchi, stridor, wheezes - Cardiovascular Cardiovascular exam: Present: RRR, +S1, +S2. Absent: bradycardia, diastolic murmur, gallop, systolic murmur - GI/Abdominal GI/Abdominal exam: Present: normal bowel sounds, soft. Absent: distended, hepatomegaly, tenderness - Extremities Exam Extremities exam: Present: warm, radial pulses palpable and symetrical. Absent : pedal edema, tenderness - Neurological Exam Neurological exam: Present: alert, CN II-XII intact, oriented X3, no focal deficits. Absent: motor sensory deficit, pronater drift, facial droop, speech deficit - Skin Skin exam: Present: dry, intact, normal color, warm. Absent: rash Internal Medicine: Result - Labs CBC & Chem 7: 11/13/16 01:49 11/13/16 01:49 Labs: Short CBC 11/13/16 Range/Units 01:49 WBC 6.7 (4.3-11.1) K/mcL Hgb 11.4 L (11.5-15.4) g/dL Hct 33.9 L (35.3-44.9) % Plt Count 320 (140-400) K/mcL Neutrophils # 3.7 (1.6-8.9) K/mcL BMP 11/13/16 01:49 Sodium 143 Potassium 3.3 L Chloride 107 Carbon Dioxide 28 BUN 18 Creatinine 1.03 Glucose 117 H Calcium 9.0 Cardiac Enzymes 11/12/16 11/13/16 Range/Units 18:07 01:49 Troponin I 0.00 0.00 (0-0.03) ng/mL - Impressions Impressions Brain MRI 11/12/16 14:14 IMPRESSION: Minimal small-vessel ischemic changes No acute infarct. No hemorrhage. D/ / Emanuel Castellano / Emanuel Castellano Interpreting Provider: Emanuel Castellano - VTE Documentation of Mechanical Device: Intermittent pneumatic compression device Consult Discharge Plan - Plan Referrals: NO,PCP [Primary Care Provider] -
--- NOTE | 2016-11-13 17:41 | Neurology Progress Note ---
Date of Encounter: 11/13/16 Time of Encounter: 17:38 Assessment and Plan (1) Left-sided weakness Current Visit: Yes Status: Acute It is very unlikely that the left-sided weakness this patient is experiencing is due to a cerebrovascular event. The patient still professes left-sided weakness however the MRI scan of the brain is negative for a corresponding lesion. She does however have complaints of paresthesias radiating into digits 4 and 5 on the left hand. I did Tinel's sign on the left elbow she did have some pain on the left elbow but did not have radiation of paresthesias into digits 4 and 5. In any regard I agree with repeating the echocardiogram the morning. I would like to follow up with her my office as an outpatient to complete an EMG study of the left upper extremity. In addition she still has stroke risk factors which should be managed aggressively by her primary care provider after discharge. I will reevaluate her at your request. Subjective Interval history: Pleasure of following up with Yue Aranda today regarding complaints of left facial droop and left-sided weakness. She still has a host of different somatic symptoms. Complains of verbal weakness of the left upper extremity she did however complain of paresthesias involving digits 4 and 5 on the left hand. She did have an MRI scan of the brain today which I did review reveals no evidence of acute diffusion deficit. Carotid duplex Doppler studies were also negative. She was unfortunately unable to complete the echocardiogram today due to anxiety. It is scheduled to be repeated tomorrow morning. Objective - Constitutional Vitals: Temp Pulse Resp BP Pulse Ox 98.2 F 80 16 140/70 97 11/13/16 16:18 11/13/16 16:18 11/13/16 16:18 11/13/16 16:18 11/13/16 16:18 - Neurological Exam Additional comments: Neurologic exam finds that the patient is awake and alert and makes eye contact follows commands and answers questions appropriately. Cranial nerves II through XII are intact. Motor exam finds given weakness of left upper and left lower extremities. She has normal bulk and tone throughout. No involuntary movements or atrophy are present. Sensory exam finds light touch and deep touch are globally intact. Deep tendon reflexes present. - VTE Documentation of Mechanical Device: Intermittent pneumatic compression device Results - Laboratory Findings CBC and BMP: 11/13/16 01:49 11/13/16 01:49 Abnormal lab findings: Abnormal lab results RBC 3.76 M/mcL (3.82-4.97) L 11/13/16 01:49 Hgb 11.4 g/dL (11.5-15.4) L 11/13/16 01:49 Hct 33.9 % (35.3-44.9) L 11/13/16 01:49 Potassium 3.3 mEq/L (3.5-4.5) L 11/13/16 01:49 Est GFR (Non-Af Amer) 56 (> 60) L 11/13/16 01:49 Glucose 117 mg/dL (70-99) H 11/13/16 01:49 POC Glucose 94 (58-89) H 11/12/16 11:03 Albumin 3.4 g/dL (3.5-5.0) L 11/12/16 11:54 Albumin/Globulin Ratio 1.0 (1.1-2.2) L 11/12/16 11:54 Consult Discharge Plan - Plan Referrals: NO,PCP [Primary Care Provider] -
[2016-11-13] MEDS: traZODone 50 MG TABLET PO SCH (20:20)
[2016-11-14] MEDS: *HR* OxyCODONE Immed Rel 5 MG TABLET PO PRN ×2 (00:56→15:20)
[2016-11-14 04:06] LABS: Bilirubin,Urine Negative (Negative); Blood,Urine Negative (Negative); Clarity,Urine Clear (Clear); Color,Urine Yellow (Yellow); Glucose,Urine (UA) Normal (Normal); Ketones,Urine Negative (Negative); Leukocyte Esterase,Urine Negative (Negative); Nitrite,Urine Negative (Negative); Protein,Urine Negative (Neg-Trace); Specific Gravity,Urine 1.013 (1.010-1.025); Urobilinogen,Urine Normal (Normal)
[2016-11-14 05:18] LABS: Basophils # 0.1 K/mcL (0.0-0.2); Basophils % 0.9 %; Eosinophils # 0.1 K/mcL (0.0-0.6); Eosinophils % 1.8 %; Hematocrit 32.2 % (35.3-44.9); Hemoglobin 10.9 g/dL (11.5-15.4); Immature Granulocytes % 0.6 % (0-4); Lymphocytes # 2.5 K/mcL (0.6-4.6); Lymphocytes % 45.7 %; Mean Corpuscular HGB Conc 33.9 g/dL (31.6-35.5); Mean Corpuscular Hemoglobin 31.4 pg (28.0-33.3); Mean Corpuscular Volume 92.8 fL (83.0-100.0); Mean Platelet Volume 9.4 fL (9.4-12.4); Monocytes # 0.4 K/mcL (0.0-1.3); Monocytes % 7.4 %; Neutrophils # 2.4 K/mcL (1.6-8.9); Platelet Count 285 K/mcL (140-400); Red Blood Count 3.47 M/mcL (3.82-4.97); Red Cell Distribution Width 12.4 % (11.5-14.5); Segmented Neutrophils % 43.6 %
[2016-11-14 05:32] LABS: BUN/Creatinine Ratio 15 (6-26); Blood Urea Nitrogen 15 mg/dL (7-20); Calcium 8.9 mg/dL (8.6-10.8); Carbon Dioxide 24 mEq/L (19-29); Chloride 107 mEq/L (98-109); Glucose 95 mg/dL (70-99); Osmolality,Calculated 291 (280-300); Potassium 3.5 mEq/L (3.5-4.5); Sodium 140 mEq/L (136-145); eGFR For African Americans > 60 (> 60); eGFR For Non-African Americans 57 (> 60)
[2016-11-14] MEDS: *HR* Enoxaparin 40 MG/0.4 ML SYRINGE SQ SCH (05:48)
[2016-11-14] MEDS: Topiramate 25 MG TABLET PO SCH (09:16)
[2016-11-14] MEDS: BuPROPion SR (12 HR) 150 MG TABLET PO SCH (09:21)
[2016-11-14] MEDS: lamoTRIgine 100 MG TABLET PO SCH (09:21)
[2016-11-14] MEDS: lamoTRIgine 25 MG TABLET PO SCH (09:21)
[2016-11-14] MEDS: Nicotine 7 MG PATCH.TD24 TD SCH (09:22)
[2016-11-14] MEDS: Dexlansoprazole [Dexilant] 60 MG PO SCH (09:22)
[2016-11-14] MEDS: ARIPiprazole 10 MG TABLET PO SCH (09:22)
[2016-11-14] MEDS: ALPRAZolam 1 MG TABLET PO PRN (09:29)
[2016-11-14 16:12] VITALS: BP 110/63
--- NOTE | 2016-11-14 17:21 | Discharge Summary ---
Date of Encounter: 11/14/16 Time of Encounter: 09:50 - Discharge Diagnosis (1) Transient cerebral ischemia Priority: Primary Status: Ruled-out Comments: Patient presented with left-sided weakness and speech, as well as left facial droop. Left facial droop has resolved, however, slurred speech is transient and intermittent, left-sided weakness remains, but has been going on for months per patient. Patient's speech was slurred more today than yesterday. She was evaluated by speech therapy today and they recommended outpatient speech therapy. She already has home services and we will continue them, and incorporate speech therapy. Patient is most likely not experiencing a cerebrovascular event. Qualifiers: Transient cerebral ischemia type: unspecified Qualified Code(s): G45.9 - Transient cerebral ischemic attack, unspecified (2) Chest pain Priority: Secondary Status: Acute Comments: Patient denies chest pain or heaviness today. She says she has not had any since last night. Patient was admitted last week and her stress test showed a small, mild reversible defect most consistent with artifact, but she was instructed to follow-up with student outreach coordinator and consider [facility] on outpatient basis. Echocardiogram was not imaged on day 1 due to sharp chest pain, most likely anxiety. It was completed today. LVEF of 60% with normal systolic function, indeterminate diastolic function. Mild MR, TR, ME. No pulmonary hypertension no evidence for intra-atrial septal shunting with saline contrast. All wall segments showed normal motion. Troponins were negative. EKG showed sinus rhythm with a rate of 78, ME interval 155 QRS duration 96, QTC 426. She denies heaviness, palpitations, pressure, nausea, diaphoresis, shortness of breath. Patient will still need to follow-up outpatient as planned with cardiology. Qualifiers: Chest pain type: precordial pain Qualified Code(s): R07.2 - Precordial pain (3) Anxiety Priority: Secondary Status: Chronic Comments: Chronic. Continue home medications. (4) HTN (hypertension) Priority: Secondary Status: Chronic Comments: Chronic. Well-controlled in inpatient setting. Continue home medications. Qualifiers: Hypertension type: essential hypertension Qualified Code(s): I10 - Essential (primary) hypertension (5) Tobacco abuse Priority: Secondary Status: Chronic Comments: Chronic. Continue Wellbutrin. We will give nicotine patches for home. (6) Depression Priority: Secondary Status: Chronic Comments: Chronic. Continue medications. Plan as above. Qualifiers: Depression Type: unspecified Qualified Code(s): F32.9 - Major depressive disorder, single episode, unspecified (7) DVT prophylaxis Priority: Secondary Status: Acute Comments: Patient is ambulatory. Lovenox subcutaneous daily. - Discharge Medications Prescriptions: Nicotine Patch [Nicoderm] 7 mg TD DAILY #28 patch Home Medications: ALPRAZolam [Xanax 1 MG Tablet] 1 mg PO QID PRN 11/24/15 [History] Aripiprazole [Abilify] 15 mg PO DAILY 03/17/16 [History] Cholecalciferol (Vitamin D3) [Vitamin D3] 2,000 unit PO DAILY 03/17/16 [History] Dexlansoprazole [Dexilant] 60 mg PO DAILY 03/17/16 [History] Furosemide [Lasix] 40 mg PO DAILY 03/17/16 [History] Prazosin HCl 2 mg PO HS 03/17/16 [History] Quetiapine Fumarate [Seroquel] 400 mg PO HS 03/17/16 [History] Spironolactone [Aldactone] 25 mg PO DAILY 03/17/16 [History] lamoTRIgine [Lamotrigine] 100 mg PO BID 03/17/16 [History] Meclizine HCl [Verticalm] 25 mg PO Q6HR #20 tablet 05/08/16 [Rx] Albuterol Sulfate [Albuterol Inhaler] 1 puff IH Q4HR #1 [id number] 09/07/16 [Rx] Acetaminophen [Tylenol] 1,000 mg PO Q6HR PRN 11/06/16 [History] Atorvastatin Calcium [Lipitor] 20 mg PO DAILY 11/06/16 [History] BuPROPion SR (12 HR) [Wellbutrin SR] 150 mg PO BID 11/06/16 [History] Carvedilol 12.5 mg PO BID 11/06/16 [History] Losartan/HCTZ [Hyzaar 50-12.5 Tablet] 1 tab PO DAILY 11/06/16 [History] Ondansetron HCl [Zofran] 4 mg PO TID PRN 11/06/16 [History] OxyCODONE Immed Rel [Roxicodone 5 MG] 5 mg PO Q8H PRN 11/06/16 [History] Tizanidine HCl [Zanaflex] 4 mg PO TID PRN 11/06/16 [History] Topiramate [Topamax] 50 mg PO BID 11/06/16 [History] traZODone [TraZODone] 50 mg PO HS 11/06/16 [History] Nicotine Patch [Nicoderm] 7 mg TD DAILY #28 patch 11/14/16 [Rx] Allergies/Adverse Reactions: Allergies aspirin Allergy (Verified 09/07/16 12:42) Rash codeine Allergy (Verified 09/07/16 12:42) Swelling of Lip/Tongue/Throat Cyclobenzaprine [From Flexeril] Allergy (Verified 09/07/16 12:42) Rash gabapentin Allergy (Verified 09/07/16 12:42) Rash hydrocodone [From Vicodin] Allergy (Verified 09/07/16 12:42) Rash latex Allergy (Verified 09/07/16 12:42) Rash tramadol [From Ultram] Allergy (Verified 09/07/16 12:42) Rash Procedures/tests Complete & Pending: Procedures Performed prior 72 hours Category Date Time Status MR head/brain wo con [MR] Routine MRI 11/12/16 14:14 Completed ECG 12 lead ECG [ECG] Routine Y 11/12/16 19:39 Completed ECG 12 lead ECG [ECG] Stat Y 11/12/16 19:18 Completed EV carotid duplex imaging BI Routine Y 11/12/16 14:14 Completed EV echocardiogram Routine Y 11/12/16 14:16 Completed EV echocardiogram Routine Y 11/13/16 15:53 Completed Date of admission: 11/12/16 13:14 Primary care physician: PCP NO Consults: 11/14/16 11:16 Consult to Speech Therapy [CONS] Routine Comment: Evaluate, develop and implement POC Reason for Consult: slurred speech Call Completed: No Discharging clinician: Stephany Hobson Anticipated date of discharge: 11/14/16 - Patient Status Disposition: Home Health Service Condition: Fair Functional capacity at discharge: uses cane/walker Overall status at discharge: patient is progressing back to baseline - Discharge Instructions Follow Up With: NO,PCP [Primary Care Provider] - Additional Instructions: Follow-up with primary care physician in the next 7-10 days for follow-up visit. Please attempt to modify her risk factors as we discussed. Low-sodium, low-fat , diet low-cholesterol diet, increase her exercise, quit smoking. Please continue to use her NicoDerm patches. Resume your normal home medications, have them reviewed by primary care to see if they are causing her weakness, fatigue, slurred speech. Return to the emergency department as needed for any other problems or concerns or if her symptoms return or worsen. Continue usual cane and/or walker for stability. He will be contacted to continue speech therapy at home. - Diet and Activity Activity: increase activity as tolerated Diet: diabetic diet, low fat, low cholesterol, low salt diet Hospital course: Ms. Aranda is a 51 year old female with past medical history tobacco abuse, depression, anxiety, hypertension presented to the emergency department on November 13 with complaint of left-sided facial droop and slurred speech. Symptoms resolved by the time she was admitted. She also reported left-sided weakness but stated been going on for months. CT of head was negative for any acute abnormalities. EKG was normal sinus rhythm. She has been evaluated by neurology and has been placed on a statin and Lovenox subcutaneous daily for admission. She will call home on her statin, she is allergic to aspirin. Carotid Dopplers were negative, MRI of the head and brain were negative for acute stroke or abnormality, but showed minimal small vessel ischemic changes.. Echocardiogram showed LVEF of 60% with normal systolic function, indeterminate diastolic dysfunction, mild MR, TR, ME, no pulmonary hypertension and no intra-atrial septal shunting, all wall segments showed normal motion. He was unable to complete echocardiogram on the first day due to the sharp stabbing chest pain that made it difficult to breathe. This is most likely related to anxiety, however she returned to the room and was reassessed and appeared to be significantly better and denied chest pain. She had been up walking around her room without any difficulty. Echocardiogram was completed this morning. Patient reports feeling fatigued and does have noticeable left hand weakness. She was evaluated by neurology and will be scheduled outpatient for an EMG of left arm. Today patient's speech was much more slurred than it was yesterday morning. Speech therapy was consulted and determined that she would benefit from outpatient speech therapy. Patient already has home health services on the [facility] and speech therapy will be integrated into her plan. Patient denies chest pain today at all. Throughout the visit she had reported occasional and intermittent chest heaviness on and off. She denied needed for this last week and had a stress test that showed a small, mild reversible defect that was most likely artifact was instructed to follow-up with cardiology consider [facility] on outpatient basis. The spleen remains unchanged based on this admission patient will follow up with cardiology on an outpatient basis for further evaluation. Her troponins have been negative, chest x-ray was negative for pulmonary disease on 11/06/16. Echocardiogram as above, EKG was sinus rhythm with no ST changes. Patient states that she is taking Wellbutrin and has decreased her smoking. She states she is down to about 5 cigarettes a day. I have encouraged her to modify her lifestyle risk factors. I have given her a prescription for nicotine patches for home. She is using them here in the hospital and is having success. Physical exam is as documented and unremarkable other than left arm weakness and slurred speech, both of which seemed to be transient and will be followed up with outpatient. Patient also reports fatigue that has lasted a couple of month, as well. Recommend a medication review by primary care physician, patient is on multiple medications that can be sedating and altering. Reason signs have been stable and within normal limits. Beta signs are also stable and within normal limits. She has no fever, no tachycardia, no tachypnea , no hypertension, room air sats in the high 90s. Patient is stable and ready for discharge. Time spent discussing smoking cessation with patient: 3 to 10 minutes - Time Spent with Patient Total time spent providing and/or coordinating discharge services: Less than 30 minutes - Constitutional Vitals: Temp Pulse Resp BP Pulse Ox 98.4 F 79 16 110/63 96 11/14/16 16:08 11/14/16 16:08 11/14/16 16:08 11/14/16 16:08 11/14/16 16:08 General appearance: Present: cooperative, A&O X 3, pleasant, no acute distress, answers questions appropriately - Head Head exam: Present: normal inspection - Neck Neck exam general surgery: Absent: lymphadenopathy, tenderness - Respiratory Respiratory exam: Present: CTAB. Absent: chest wall tenderness, decreased breath sounds, rales, respiratory distress, rhonchi, stridor, wheezes, tachypnea - Cardiovascular Cardiovascular exam: Present: RRR, +S1, +S2. Absent: clicks, diastolic murmur, gallop, systolic murmur - Expanded Cardiovascular Exam Peripheral pulses: 1+: Dorsalis Pedis (L) PM, Dorsalis Pedis (R) PM - GI/Abdominal GI/Abdominal exam: Present: distended, normal bowel sounds, soft. Absent: hepatomegaly, tenderness - Extremities Exam Extremities exam: Present: full ROM, normal capillary refill, warm, radial pulses palpable and symetrical. Absent: calf tenderness, joint swelling, pedal edema, tenderness - Neurological Exam Neurological exam: Present: alert, oriented X3, speech deficit. Absent: altered , motor sensory deficit, no focal deficits, strengths equal and symetr throughout, pronater drift, facial droop Additional comments: Patient has difficulty with right hand grasp, however there is no drift or pronator drift. Speech is slurred as documented. - Psychiatric Psychiatric exam: Absent: anxious, flat affect, homicidal ideation, suicidal ideation - Skin Skin exam: Present: dry, normal color, warm. Absent: rash - VTE Documentation of Mechanical Device: Intermittent pneumatic compression device
== END 2016-11-14 19:41 | disposition home health service (06) ==
LOC: 3BNU 10:59 → EMEROO 10:59 → 3BNU 13:45
PROVIDERS: ADMIT Internal Medicine; ATTEND Nurse Practitioner Family

== ENCOUNTER 2016-12-27 20:43 | Observation (INO) ==
--- NOTE | 2016-12-27 21:01 | Emergency Department Note ---
Disposition Clinical Impression: Cellulitis of right leg Chest pain Qualifiers: Chest pain type: unspecified Qualified Code(s): R07.9 - Chest pain, unspecified Disposition: Admitted As Inpatient Condition: Good Referrals: Jose Eduardo Page [Primary Care Provider] - Forms: ED Satisfaction Letter Time of Disposition: 22:00 Chest Pain HPI - General Chief Complaint: ED Chest Pain Stated Complaint: RLE Cellulitis / CP Time Seen by Provider: 12/27/16 20:55 Source: patient Limitations: no limitations Vital Signs Reviewed: Yes Nursing Notes Reviewed: Yes - History of Present Illness HPI Narrative: Patient's been having chest pressure off and on for the last 2 days. Patient also has swelling and redness of her right lower extremity states a bookshelf fell on it about 2 weeks ago. She states she had a mild stroke couple below weeks ago. History of a cardiac catheter or cardiac workup however she states she did have a heart attack in the past. She has no history of stents. 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: constant Onset: during rest Pain Location: substernal, left chest Severity scale (1-10): 9 Quality: tightness, aching Pain Radiation: none Improves with: nothing Worsens with: nothing Context: other (Leg injury 2 weeks ago with some swelling and redness) Associated symptoms: Reports: leg swelling Treatments prior to arrival chest pain: none - Related Data Home Medications Medication Instructions Recorded Confirmed ALPRAZolam [Xanax 1 MG Tablet] 1 mg PO QID PRN 11/24/15 11/12/16 Aripiprazole [Abilify] 15 mg PO DAILY 03/17/16 11/12/16 Cholecalciferol (Vitamin D3) 2,000 unit PO DAILY 03/17/16 11/12/16 [Vitamin D3] Dexlansoprazole [Dexilant] 60 mg PO DAILY 03/17/16 11/12/16 Furosemide [Lasix] 40 mg PO DAILY 03/17/16 11/12/16 Prazosin HCl 2 mg PO HS 03/17/16 11/12/16 Quetiapine Fumarate [Seroquel] 400 mg PO HS 03/17/16 11/12/16 Spironolactone [Aldactone] 25 mg PO DAILY 03/17/16 11/12/16 lamoTRIgine [Lamotrigine] 100 mg PO BID 03/17/16 11/12/16 Acetaminophen [Tylenol] 1,000 mg PO Q6HR PRN 11/06/16 11/12/16 Atorvastatin Calcium [Lipitor] 20 mg PO DAILY 11/06/16 11/12/16 BuPROPion SR (12 HR) [Wellbutrin 150 mg PO BID 11/06/16 11/12/16 SR] Carvedilol 12.5 mg PO BID 11/06/16 11/12/16 Losartan/HCTZ [Hyzaar 50-12.5 1 tab PO DAILY 11/06/16 11/12/16 Tablet] Ondansetron HCl [Zofran] 4 mg PO TID PRN 11/06/16 11/12/16 OxyCODONE Immed Rel [Roxicodone 5 5 mg PO Q8H PRN 11/06/16 11/12/16 MG] Tizanidine HCl [Zanaflex] 4 mg PO TID PRN 11/06/16 11/12/16 Topiramate [Topamax] 50 mg PO BID 11/06/16 11/12/16 traZODone [TraZODone] 50 mg PO HS 11/06/16 11/12/16 Previous Rx's Medication Instructions Recorded Meclizine HCl [Verticalm] 25 mg PO Q6HR #20 tablet 05/08/16 Albuterol Sulfate [Albuterol 1 puff IH Q4HR #1 hfa.aer.ad 09/07/16 Inhaler] Nicotine Patch [Nicoderm] 7 mg TD DAILY #28 patch 11/14/16 Allergies Allergy/AdvReac Type Severity Reaction Status Date / Time aspirin Allergy Rash Verified 09/07/16 12:42 codeine Allergy Swelling Verified 09/07/16 12:42 of Lip/Tongue/Throat Cyclobenzaprine Allergy Rash Verified 09/07/16 12:42 [From Flexeril] gabapentin Allergy Rash Verified 09/07/16 12:42 hydrocodone [From Vicodin] Allergy Rash Verified 09/07/16 12:42 latex Allergy Rash Verified 09/07/16 12:42 tramadol [From Ultram] Allergy Rash Verified 09/07/16 12:42 All systems ED: reviewed and negative except as stated. Constitutional: Denies: fever, chills, weakness, weight change Eyes: Denies: eye pain, eye discharge, vision change ENT ED: Denies: ear pain, throat pain, dental pain, hearing loss, epistaxis, congestion, dysphagia Cardiovascular: Reports: chest pain. Denies: palpitations, dyspnea on exertion , edema, syncope Respiratory: Denies: cough, dyspnea, wheezes, hemoptysis, stridor Gastrointestinal: Denies: abdominal pain, nausea, vomiting, diarrhea, constipation, hematemesis, melena, hematochezia Genitourinary: Denies: dysuria, frequency, hematuria, discharge Musculoskeletal: Reports: arthralgia. Denies: back pain, neck pain, myalgia Integumentary: Denies: rash, abrasion, lesions Neurological: Denies: headache, weakness, numbness, paresthesias, confusion, abnormal gait, vertigo Psychiatric: Denies: anxiety, depression, suicidal thoughts, homicidal thoughts , auditory hallucinations, visual hallucinations Endocrine: Denies: fatigue Hematological/Lymphatic: Denies: easy bleeding, easy bruising Allergic/Immunologic: Denies: facial swelling, urticaria Chest Pain PMH - Past Medical History Medical history: Reports: CHF, COPD, CVA, hyperlipidemia, hypertension, other Surgical history: Reports: cholecystectomy, thyroidectomy (Partial) Psychiatric history: Reports: ADHD, bipolar, depression, PTSD, other 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 - Social History Smoking Status: Light tobacco smoker Alcohol use: Reports: rarely Drug use: Reports: none Physical Exam - General Limitations: no limitations General appearance: alert - Head Head exam: atraumatic, normocephalic, normal inspection - Eye Eye exam: Present: normal appearance, PERRL, EOMI - ENT ENT exam: normal exam, normal oropharynx, mucous membranes moist - Neck Neck exam: Present: normal inspection, full ROM, trachea midline - Chest Chest inspection: Present: normal inspection, symmetric chest wall rise - Respiratory Respiratory exam: Present: normal lung sounds bilaterally - Cardiovascular Cardiovascular exam: Present: regular rate, normal rhythm, normal heart sounds - Abdominal Exam Abdominal exam: Present: soft, Non-Tender. Absent: tenderness, distention, guarding, rebound, rigidity - Expanded Lower Extremity Exam Lower leg exam: Present: tenderness, swelling, erythema Neurovascular/Tendon exam: Absent: motor deficit, sensory deficit, tendon deficit Gait: observed and normal - Back Exam Back exam: Present: normal inspection, full ROM. Absent: tenderness - Neurological Exam Neurological exam: Present: alert, oriented X3 - Psychiatric Psychiatric exam: Present: normal affect, normal mood - Skin Skin exam: Present: warm, dry, intact, normal color Course - Reevaluation(s) Reevaluation #1: 51-year-old multiple risk factors as had chest pressure intermittently for the last day or so. Also has a red swollen leg had of table fall on it on the dorsum of her foot and now she has redness of the leg a Doppler was negative her initial cardiac workup is negative she's not had any recent cardiac workup has a history of previous NM in the past. Patient will be admitted for further evaluation and treatment. Time: 22:00 - Consultations Consultation #1: Discussed with , santa. Time: 22:02 Vital Signs Temperature 97.8 F 12/27/16 20:44 Pulse Rate 100 12/27/16 20:44 Respiratory Rate 18 12/27/16 20:44 Blood Pressure 172/83 12/27/16 20:44 O2 Sat by Pulse Oximetry 96 12/27/16 20:44 Temperature 97.8 F 12/27/16 20:44 Pulse Rate 100 12/27/16 20:44 Respiratory Rate 18 12/27/16 20:44 Blood Pressure 172/83 12/27/16 20:44 O2 Sat by Pulse Oximetry 95 12/27/16 20:57 Oxygen Delivery Oxygen Delivery Room Air Chest Pain - Lab Data Lab results reviewed: Yes I reviewed the patient's lab results. Result diagrams: 12/27/16 20:12 12/27/16 20:12 Lab Results 12/27/16 12/27/16 12/27/16 Range/Units 20:12 20:12 20:12 WBC 4.0 L (4.3-11.1) K/mcL RBC 3.57 L (3.82-4.97) M/mcL Hgb 11.0 L (11.5-15.4) g/dL Hct 33.2 L (35.3-44.9) % MCV 93.0 (83.0-100.0) fL MCH 30.8 (28.0-33.3) pg MCHC 33.1 (31.6-35.5) g/dL RDW 13.2 (11.5-14.5) % Plt Count 294 (140-400) K/mcL MPV 8.9 L (9.4-12.4) fL Immature Gran % 0.5 (0-4) % Seg Neutrophils % 44.2 % Lymphocytes % 41.4 % Monocytes % 9.7 % Eosinophils % 3.2 % Basophils % 1.0 % Neutrophils # 1.8 (1.6-8.9) K/mcL Lymphocytes # 1.7 (0.6-4.6) K/mcL Monocytes # 0.4 (0.0-1.3) K/mcL Eosinophils # 0.1 (0.0-0.6) K/mcL Basophils # 0.0 (0.0-0.2) K/mcL PT 10.6 (9.4-12.1) Seconds INR 1.0 APTT 29.0 (26.0-36.0) Seconds D-Dimer 471 (0-500) ng/mLFEU Sodium 144 (136-145) mEq/L Potassium 3.4 L (3.5-4.5) mEq/L Chloride 105 (98-109) mEq/L Carbon Dioxide 29 (19-29) mEq/L BUN 10 (7-20) mg/dL Creatinine 0.88 (0.57-1.11) mg/dL Est GFR ( Amer) > 60 (> 60) Est GFR (Non-Af Amer) > 60 (> 60) BUN/Creatinine Ratio 11 (6-26) Glucose 118 H (70-99) mg/dL Calculated Osmolality 298 (280-300) Calcium 9.0 (8.6-10.8) mg/dL Troponin I (0-0.03) ng/mL 12/27/16 Range/Units 20:12 WBC (4.3-11.1) K/mcL RBC (3.82-4.97) M/mcL Hgb (11.5-15.4) g/dL Hct (35.3-44.9) % MCV (83.0-100.0) fL MCH (28.0-33.3) pg MCHC (31.6-35.5) g/dL RDW (11.5-14.5) % Plt Count (140-400) K/mcL MPV (9.4-12.4) fL Immature Gran % (0-4) % Seg Neutrophils % % Lymphocytes % % Monocytes % % Eosinophils % % Basophils % % Neutrophils # (1.6-8.9) K/mcL Lymphocytes # (0.6-4.6) K/mcL Monocytes # (0.0-1.3) K/mcL Eosinophils # (0.0-0.6) K/mcL Basophils # (0.0-0.2) K/mcL PT (9.4-12.1) Seconds INR APTT (26.0-36.0) Seconds D-Dimer (0-500) ng/mLFEU Sodium (136-145) mEq/L Potassium (3.5-4.5) mEq/L Chloride (98-109) mEq/L Carbon Dioxide (19-29) mEq/L BUN (7-20) mg/dL Creatinine (0.57-1.11) mg/dL Est GFR ( Amer) (> 60) Est GFR (Non-Af Amer) (> 60) BUN/Creatinine Ratio (6-26) Glucose (70-99) mg/dL Calculated Osmolality (280-300) Calcium (8.6-10.8) mg/dL Troponin I 0.01 (0-0.03) ng/mL - Radiology Data Radiology results reviewed: Yes I reviewed the patient's radiology results. - EKG Data EKG attestation: Yes I reviewed and interpreted this EKG. EKG shows normal: sinus rhythm Rate: tachycardia Rhythm: NSR Interpretation: no acute changes Heart Score - Score History: Moderately Suspicious EKG: Non Specific repolarisation Disturbance Age: 45-65 Risk Factors: Equal/Greater than 3 risk factor or history of atherosclerotic disease Troponin: Less than normal limit HEART Score Total: 5
[2016-12-27 21:23] LABS: Eosinophils # 0.1 K/mcL (0.0-0.6); Eosinophils % 3.2 %; Hematocrit 33.2 % (35.3-44.9); Immature Granulocytes % 0.5 % (0-4); Lymphocytes # 1.7 K/mcL (0.6-4.6); Lymphocytes % 41.4 %; Mean Corpuscular HGB Conc 33.1 g/dL (31.6-35.5); Mean Corpuscular Hemoglobin 30.8 pg (28.0-33.3); Mean Platelet Volume 8.9 fL (9.4-12.4); Monocytes # 0.4 K/mcL (0.0-1.3); Monocytes % 9.7 %; Neutrophils # 1.8 K/mcL (1.6-8.9); Platelet Count 294 K/mcL (140-400); Red Blood Count 3.57 M/mcL (3.82-4.97); Red Cell Distribution Width 13.2 % (11.5-14.5); Segmented Neutrophils % 44.2 %
[2016-12-27 21:27] LABS: Prothrombin Time 10.6 Seconds (9.4-12.1)
[2016-12-27 21:35] LABS: BUN/Creatinine Ratio 11 (6-26); Blood Urea Nitrogen 10 mg/dL (7-20); Carbon Dioxide 29 mEq/L (19-29); Chloride 105 mEq/L (98-109); Glucose 118 mg/dL (70-99); Osmolality,Calculated 298 (280-300); Potassium 3.4 mEq/L (3.5-4.5); Sodium 144 mEq/L (136-145); eGFR For African Americans > 60 (> 60); eGFR For Non-African Americans > 60 (> 60)
--- NOTE | 2016-12-28 01:51 | Internal Med History&Physical ---
Date of Encounter: 12/28/16 Time of Encounter: 01:51 Assessment and Plan (1) Cellulitis of right leg Current visit: Yes Status: Acute after trauma to right foot. Non-purulent WBC 4k, but clincially consistent with cellulitis foot Xray: unremarkable - IV ceftriaxone - Doppler, r/o DVT (2) Chest pain Current visit: Yes Status: Acute atypical chest pain - Stress test 11/12: EF 69%, small apical anterior defect, artifact vs reversible ischemia - serial troponin - no stress test - check urine drug screen - OP f/u with cardiology as scheduled on 01/07/17 to assess whether she needs a cardiac catheterization Qualifiers: Chest pain type: other chest pain Qualified Code(s): R07.89 - Other chest pain; R07.8 - Other chest pain (3) HTN (hypertension) Current visit: No Status: Chronic Stable - Cont Coreg, HCTZ, losartan - Cont Lasix/spironolactone (? history of CHF) Qualifiers: Hypertension type: essential hypertension Qualified Code(s): I10 - Essential (primary) hypertension (4) Shaking Current visit: Yes Status: Acute patient calls this episode seizure, but I wonder if this was chills/rigors in the setting of cellulitis. SHe had a fever of 100F at home - Clinically monitor - May consider neurology consult if observed in hospital (5) Anxiety Current visit: No Status: Chronic Cont multiple home medicines as in home med list (6) Depression Current visit: No Status: Chronic Cont multiple home medicines as in home med list Qualifiers: Depression Type: unspecified Qualified Code(s): F32.9 - Major depressive disorder, single episode, unspecified (7) Hypokalemia Current visit: Yes Status: Acute replace pO (8) Right pulmonary infiltrate on CXR Current visit: Yes Status: Acute no S/S of pneumonia - cont ceftriaxone for cellulitis - clinically monitor Internal Medicine - H&P: HPI Chief complaint: chest pain, foot swelling Plans for Post Hospital Care: Home History of present illness: 51W has presented with various concerns: 1. Chest pain. Intermittent for 3 days, sometimes heavy in character and other times sharp as if she is having a panic attack. Non exertional. 2. Right leg pain: She dropped something on her right oot 2 weeks ago. About 5 days ago, she noticed warmth, redness, pain and swelling. 3. Seizure at home: She said that she had tremors and 'shaking', and her jaw locked. Also, she had urinary incontinence with that episode a few days ago. Her last seizure was at age 5 before this episode. Headache, palpitations, cold sweats sleepwalking. A 10-point ROS is otherwise negative. PMH: - Asthma - TIA - HTN - HL - Anxiety - PTSD - ? CHF PSH: cholecystectomy, tonsillectomy SH: 0.5 PPD, no alcohol or illicit drugs Past Med Surg Social Fam HX - Past Medical History Medical history: asthma, CHF, COPD, CVA, hyperlipidemia, hypertension, other Psychiatric history: anxiety, ADHD, bipolar, depression, PTSD, other - Past Surgical History Surgical History: cholecystectomy, thyroidectomy, other - Social History Smoking Status: Light tobacco smoker Smokeless Tobacco Status: No Alcohol use: rarely Drug use: none - Family History Brother Living Status: Hx Family Cardiac Disorders: Yes ([place]) Mother Living Status: Still Living Hx Family Cardiac Disorders: Yes Father Living Status: Hx Family Cardiac Disorders: Yes Internal Medicine - H&P: Meds ALPRAZolam [Xanax 1 MG Tablet] 1 mg PO QID PRN 11/24/15 [History] Aripiprazole [Abilify] 15 mg PO DAILY 03/17/16 [History] Cholecalciferol (Vitamin D3) [Vitamin D3] 2,000 unit PO DAILY 03/17/16 [History] Dexlansoprazole [Dexilant] 60 mg PO DAILY 03/17/16 [History] Furosemide [Lasix] 25 mg PO DAILY 03/17/16 [History] Prazosin HCl 2 mg PO HS 03/17/16 [History] Quetiapine Fumarate [Seroquel] 400 mg PO HS 03/17/16 [History] Spironolactone [Aldactone] 25 mg PO DAILY 03/17/16 [History] lamoTRIgine [Lamotrigine] 25 mg PO BID 03/17/16 [History] Meclizine HCl [Verticalm] 25 mg PO Q6HR #20 tablet 05/08/16 [Rx] Albuterol Sulfate [Albuterol Inhaler] 1 puff IH Q4HR #1 hfa.aer.ad 09/07/16 [Rx] Acetaminophen [Tylenol] 1,000 mg PO Q6HR PRN 11/06/16 [History] Atorvastatin Calcium [Lipitor] 40 mg PO DAILY 11/06/16 [History] BuPROPion SR (12 HR) [Wellbutrin SR] 150 mg PO BID 11/06/16 [History] Carvedilol 12.5 mg PO BID 11/06/16 [History] Losartan/HCTZ [Hyzaar 50-12.5 Tablet] 12.5 mg PO DAILY 11/06/16 [History] Ondansetron HCl [Zofran] 4 mg PO ONCE 11/06/16 [History] OxyCODONE Immed Rel [Roxicodone 5 MG] 5 mg PO BID PRN 11/06/16 [History] Tizanidine HCl [Zanaflex] 4 mg PO TID PRN 11/06/16 [History] Topiramate [Topamax] 100 mg PO BID 11/06/16 [History] traZODone [TraZODone] 50 mg PO HS 11/06/16 [History] Nicotine Patch [Nicoderm] 7 mg TD DAILY #28 patch 11/14/16 [Rx] Meclizine [Antivert] 25 mg PO TID 12/28/16 [History] Pantoprazole Sodium 40 mg PO BID 12/28/16 [History] Prazosin [Minipress] 2 mg PO BID 12/28/16 [History] hydrOXYzine pamoate [HydrOXYzine Pamoate] 50 mg PO QID 12/28/16 [History] 3 Allergy/AdvReac Type Severity Reaction Status Date / Time aspirin Allergy Rash Verified 09/07/16 12:42 codeine Allergy Swelling Verified 09/07/16 12:42 of Lip/Tongue/Throat Cyclobenzaprine Allergy Rash Verified 09/07/16 12:42 [From Flexeril] gabapentin Allergy Rash Verified 09/07/16 12:42 hydrocodone [From Vicodin] Allergy Rash Verified 09/07/16 12:42 latex Allergy Rash Verified 09/07/16 12:42 tramadol [From Ultram] Allergy Rash Verified 09/07/16 12:42 All Systems PM: A 10-system review of systems was performed and is negative for pertinent findings except as documented above in the HPI. - Constitutional Vitals: Temp Pulse Resp BP Pulse Ox 97.6 F 79 16 158/91 96 12/27/16 23:35 12/27/16 23:35 12/27/16 23:35 12/27/16 23:35 12/27/16 23:35 General appearance: Present: A&O X 3, pleasant, no acute distress - Head Head exam: Present: atraumatic, normocephalic - Eye Eye exam: Present: PERRL, conjuntiva pink, sclera anicteric Pupils: Present: PERRL - Neck Neck exam general surgery: Present: supple, trachea midline. Absent: nuchal rigidity - Respiratory Respiratory exam: Present: CTAB. Absent: accessory muscle use, rales, rhonchi, wheezes - Cardiovascular Cardiovascular exam: Present: RRR, +S1, +S2. Absent: diastolic murmur, gallop, rubs, systolic murmur - GI/Abdominal GI/Abdominal exam: Present: normal bowel sounds, soft, no peritoneal signs. Absent: distended, guarding, rebound, tenderness - Extremities Exam Extremities exam: Present: calf tenderness (right anterior leg and calf dolor, calor, rubor and tumor), pedal edema (right leg), warm, radial pulses palpable and symmetrical. Absent: cyanotic - Neurological Exam Neurological exam: Present: CN II-XII intact, oriented X3, no focal deficits. Absent: facial droop, speech deficit - Psychiatric Psychiatric exam: Present: normal affect, normal mood - Skin Skin exam: Present: dry, erythema (as mentioned above under extremity exam, no purulent discharge), intact Internal Med - H&P Results - Labs CBC & Chem 7: 12/27/16 20:12 12/27/16 20:12 - EKG Data -: EKG Interpreted by Myself (Sinus 101 bpm, no ischemic changes, QTc 438)
[2016-12-28] MEDS ORDERED: Naloxone 0.4 MG/ML INJ IVP PRN (03:25)
[2016-12-28] MEDS ORDERED: Acetaminophen 325 MG TABLET PO PRN (03:25)
[2016-12-28] MEDS ORDERED: tiZANidine 4 MG TABLET PO PRN (03:33)
[2016-12-28] MEDS: ALPRAZolam 1 MG TABLET PO PRN ×2 (04:12→10:03)
[2016-12-28 04:44] LABS: Amphetamine Screen,Urine Negative ng/mL (Cutoff=1000); Barbiturate Screen,Urine Negative ng/mL (Cutoff=200); Benzodiazepines Screen,Urine Positive ng/mL (Cutoff=200); Cannabinoid Screen,Urine Negative ng/mL (Cutoff = 50); Cocaine Screen,Urine Negative ng/mL (Cutoff= 300); Opiate Screen,Urine Positive ng/mL (Cutoff=300); Phencyclidine Screen,Urine Negative ng/mL (Cutoff=25)
[2016-12-28 05:41] LABS: Eosinophils # 0.1 K/mcL (0.0-0.6); Eosinophils % 2.8 %; Hematocrit 32.7 % (35.3-44.9); Hemoglobin 10.9 g/dL (11.5-15.4); Immature Granulocytes % 0.3 % (0-4); Immature Platelets 1.7 % (1.1-6.1); Lymphocytes # 1.6 K/mcL (0.6-4.6); Lymphocytes % 40.5 %; Mean Corpuscular HGB Conc 33.3 g/dL (31.6-35.5); Mean Corpuscular Hemoglobin 31.4 pg (28.0-33.3); Mean Corpuscular Volume 94.2 fL (83.0-100.0); Monocytes # 0.4 K/mcL (0.0-1.3); Monocytes % 9.2 %; Neutrophils # 1.8 K/mcL (1.6-8.9); Platelet Count 310 K/mcL (140-400); Red Blood Count 3.47 M/mcL (3.82-4.97); Red Cell Distribution Width 13.5 % (11.5-14.5); Segmented Neutrophils % 46.2 %
[2016-12-28 06:05] LABS: Platelet Estimate Normal (Normal)
[2016-12-28 06:08] LABS: Calcium 8.6 mg/dL (8.6-10.8); Carbon Dioxide 28 mEq/L (19-29); Chloride 107 mEq/L (98-109); Glucose 112 mg/dL (70-99); Sodium 145 mEq/L (136-145); eGFR For African Americans > 60 (> 60); eGFR For Non-African Americans > 60 (> 60)
[2016-12-28 06:10] LABS: Potassium 3.5 mEq/L (3.5-4.5)
[2016-12-28 06:12] LABS: BUN/Creatinine Ratio 9 (6-26); Blood Urea Nitrogen 9 mg/dL (7-20); Osmolality,Calculated 299 (280-300)
[2016-12-28] MEDS: *HR* Enoxaparin 40 MG/0.4 ML SYRINGE SQ SCH (06:14)
[2016-12-28] MEDS: Topiramate 100 MG TABLET PO SCH ×2 (08:52→22:14)
[2016-12-28] MEDS: lamoTRIgine 25 MG TABLET PO SCH ×2 (08:52→22:15)
[2016-12-28] MEDS: ARIPiprazole 5 MG TABLET PO SCH (08:52)
[2016-12-28] MEDS: hydrOXYzine pamoate 25 MG CAPSULE PO SCH ×4 (08:52→23:49)
[2016-12-28] MEDS: BuPROPion SR (12 HR) 150 MG TABLET PO SCH ×2 (08:53→22:14)
[2016-12-28] MEDS: (Dexlansoprazole [Dexilant] 60 MG) PO SCH (08:55)
[2016-12-28] MEDS ORDERED: Furosemide 20 MG TABLET PO SCH (09:00)
[2016-12-28] MEDS ORDERED: Losartan/HCTZ 50-12.5 TABLET PO SCH (09:00)
[2016-12-28] MEDS ORDERED: Spironolactone 25 MG TABLET PO SCH (09:00)
[2016-12-28] MEDS ORDERED: *HR* OxyCODONE Immed Rel 5 MG TABLET PO PRN (09:10)
--- NOTE | 2016-12-28 11:43 | Venous Imaging Report ---
LE Venous Duplex Patient Name:Yue Aranda Order Number:[id number] Procedure Date:12/27/2016 Date:1965Age:51 yrs Gender:Female Location:[facility] ED Room #: 7 Journalism Instructor:Lorie Mckeon RVT Referring MD:Jared Dodge MD rigging helper:Sukumar Page MD Reading MD:Emanuel Villagran MD Secondary Indications: Risk Factors Yes/No None Impressions: Normal right lower extremity deep and superficial venous exam. Normal contralateral common femoral vein. Recommendations: Test completed on 12/27/2016 at 9:50:39 pm. Critical findings reported to Saturnino Dodge in person at 9:50:49 pm on 12/27/2016 by Lorie Mckeon RVT. Findings Venous Duplex Results: Right: Venous imaging of the lower extremity reveals full patency and normal vessel compressibility of the right distal iliac, right common femoral, right superficial femoral, right popliteal, right posterior tibial, right peroneal, right great saphenous and right lesser saphenous. Doppler signals in the evaluated veins were normal. Left: Venous imaging of the lower extremity reveals full patency and normal vessel compressibility of the left common femoral. Doppler signals in the evaluated veins were normal. Updated by Emanuel Villagran MD on 12/28/2016 11:33:14 AM electronically signed on 12/28/2016 11:35:53 AM with status of Final
[2016-12-28] MEDS ORDERED: Ketorolac 30 MG/ML VIAL IVP PRN (16:12)
[2016-12-28] MEDS ORDERED: 0.9 % Sodium Chloride 1,000 ML IVC SCH (16:15)
[2016-12-28] MEDS ORDERED: traZODone 50 MG TABLET PO SCH (21:00)
[2016-12-29 04:06] LABS: Hematocrit 33.3 % (35.3-44.9); Immature Platelets 1.3 % (1.1-6.1); Mean Corpuscular Hemoglobin 31.2 pg (28.0-33.3); Mean Corpuscular Volume 94.3 fL (83.0-100.0); Mean Platelet Volume 9.2 fL (9.4-12.4); Red Blood Count 3.53 M/mcL (3.82-4.97); Red Cell Distribution Width 13.6 % (11.5-14.5)
[2016-12-29 04:22] LABS: Calcium 8.9 mg/dL (8.6-10.8)
[2016-12-29 04:23] LABS: Potassium 3.7 mEq/L (3.5-4.5)
[2016-12-29] MEDS: *HR* Enoxaparin 40 MG/0.4 ML SYRINGE SQ SCH (05:30)
[2016-12-29 07:35] VITALS: BP 156/83
[2016-12-29] MEDS ORDERED: 0.9 % Sodium Chloride 1,000 ML IVC SCH (07:52)
--- NOTE | 2016-12-29 07:55 | Discharge Summary ---
Date of Encounter: 12/29/16 Time of Encounter: 07:52 - Discharge Diagnosis (1) Cellulitis of right leg Priority: Primary Status: Acute (2) HTN (hypertension) Priority: Secondary Status: Chronic Qualifiers: Hypertension type: essential hypertension Qualified Code(s): I10 - Essential (primary) hypertension (3) Tobacco abuse Priority: Secondary Status: Chronic (4) Chest pain Priority: Secondary Status: Acute Qualifiers: Chest pain type: intercostal pain Qualified Code(s): R07.82 - Intercostal pain (5) PTSD (post-traumatic stress disorder) Priority: Secondary Status: Chronic (6) Transient cerebral ischemia Priority: Secondary Status: Ruled-out Qualifiers: Transient cerebral ischemia type: unspecified Qualified Code(s): G45.9 - Transient cerebral ischemic attack, unspecified (7) Hypokalemia Priority: Secondary Status: Acute (8) Right pulmonary infiltrate on CXR Priority: Secondary Status: Acute Comments: Chest x-ray showed: Question of early developing infiltrate at the right lung base asymptomatic - Discharge Medications Prescriptions: cephALEXin [Keflex] 500 mg PO QID #20 capsule Home Medications: ALPRAZolam [Xanax 1 MG Tablet] 1 mg PO QID PRN 11/24/15 [History] Aripiprazole [Abilify] 15 mg PO DAILY 03/17/16 [History] Cholecalciferol (Vitamin D3) [Vitamin D3] 2,000 unit PO DAILY 03/17/16 [History] Dexlansoprazole [Dexilant] 60 mg PO DAILY 03/17/16 [History] Furosemide [Lasix] 20 mg PO DAILY 03/17/16 [History] Prazosin HCl 2 mg PO HS 03/17/16 [History] Quetiapine Fumarate [Seroquel] 400 mg PO HS 03/17/16 [History] Spironolactone [Aldactone] 25 mg PO DAILY 03/17/16 [History] lamoTRIgine [Lamotrigine] 100 mg PO BID 03/17/16 [History] Atorvastatin Calcium [Lipitor] 40 mg PO DAILY 11/06/16 [History] Carvedilol 12.5 mg PO BID 11/06/16 [History] Losartan/HCTZ [Hyzaar 50-12.5 Tablet] 1 tab PO DAILY 11/06/16 [History] Ondansetron HCl [Zofran] 4 mg PO ONCE 11/06/16 [History] Tizanidine HCl [Zanaflex] 4 mg PO TID PRN 11/06/16 [History] Topiramate [Topamax] 100 mg PO BID 11/06/16 [History] traZODone [TraZODone] 50 mg PO HS 11/06/16 [History] Meclizine [Antivert] 25 mg PO TID 12/28/16 [History] Oxycodone HCl/Acetaminophen [Percocet 5-325 mg Tablet] 1 tab PO BID PRN [History] Pantoprazole Sodium 40 mg PO BID 12/28/16 [History] Vortioxetine Hydrobromide [Trintellix] 10 mg PO DAILY 12/28/16 [History] hydrOXYzine pamoate [HydrOXYzine Pamoate] 50 mg PO QID 12/28/16 [History] cephALEXin [Keflex] 500 mg PO QID #20 capsule 12/29/16 [Rx] Allergies/Adverse Reactions: 3 Allergy/AdvReac Type Severity Reaction Status Date / Time aspirin Allergy Rash Verified 09/07/16 12:42 codeine Allergy Swelling Verified 09/07/16 12:42 of Lip/Tongue/Throat Cyclobenzaprine Allergy Rash Verified 09/07/16 12:42 [From Flexeril] gabapentin Allergy Rash Verified 09/07/16 12:42 hydrocodone [From Vicodin] Allergy Rash Verified 09/07/16 12:42 latex Allergy Rash Verified 09/07/16 12:42 tramadol [From Ultram] Allergy Rash Verified 09/07/16 12:42 Procedures/tests Complete & Pending: Procedures Performed prior 72 hours Category Date Time Status ECG 12 lead ECG [ECG] AM 0600 Y 12/28/16 06:00 Completed Date of admission: 12/27/16 22:45 Primary care physician: Jose Eduardo Page Consults: 12/27/16 23:54 Consult to Ed Special Education Teacher [CONS] Routine Reason for SW Consult: resume services - Patient Status Disposition: Home, Self-Care Condition: Good Overall status at discharge: patient is progressing back to baseline - Discharge Instructions Follow Up With: Jose Eduardo Page [Primary Care Provider] - Additional Instructions: Follow-up with primary care physician within the next 7 days. Hold losartan/ hydrochlorothiazide and Lasix for 2 days, drink fluids. May resume all medications after 2 days. Follow-up with cardiology on January 07. Complete 5 more days of Keflex, quit smoking - Diet and Activity Activity: increase activity as tolerated Diet: low fat, low cholesterol Hospital course: Ms. Aranda is a 51 year old female with a past medical history of diastolic CHF, COPD not oxygen dependent, TIAs, hypertension, hyperlipidemia, asthma, came complaining of a few days of right leg getting warm, more red and swelling. Possibly she run a fever at home and was complaining of a seizure that according to her symptoms could have been just more like shaking. She was complaining of some chest pain but she is scheduled to see cardiology in a few days. Patient was started on Rocephin. White blood cell count dropped to 3.9 and today recovered to normal level of 6.1. Potassium was 3.4 and was repleted , today is 3.7. The area of erythema has completely subsided, she has not had any fever. Had an episode of low blood pressure down to the high 80s but today is completely recovered. She was slightly dehydrated and received IV fluids. Her creatinine increased slightly from 0.88 up to 1.17. Urine tox screen was positive for opiates and benzodiazepines which she is prescribed as an outpatient. Patient was given the option to stay an additional day getting fluids but she prefers to be discharged at this point. She was advised to hold her losartan hydrochlorothiazide and Lasix for 2 days, drink plenty of fluids. Time spent discussing smoking cessation with patient: 3 to 10 minutes - Time Spent with Patient Total time spent providing and/or coordinating discharge services: Greater than 30 minutes (40 min) - Constitutional Vitals: Temp Pulse Resp BP Pulse Ox 98.4 F 82 18 156/83 93 12/29/16 07:31 12/29/16 07:31 12/29/16 07:31 12/29/16 07:31 12/29/16 07:31 General appearance: Present: A&O X 3, pleasant, no acute distress - Head Head exam: Present: atraumatic, normocephalic - Eye Eye exam: Present: PERRL, conjuntiva pink, sclera anicteric Pupils: Present: PERRL - Neck Neck exam general surgery: Present: supple, trachea midline. Absent: lymphadenopathy - Respiratory Respiratory exam: Present: CTAB. Absent: accessory muscle use, rales, rhonchi, wheezes - Cardiovascular Cardiovascular exam: Present: RRR, +S1, +S2. Absent: diastolic murmur, gallop, rubs, systolic murmur - GI/Abdominal GI/Abdominal exam: Present: normal bowel sounds, soft, no peritoneal signs. Absent: distended, tenderness - Extremities Exam Extremities exam: Present: warm, radial pulses palpable and symmetrical. Absent : calf tenderness, cyanotic, pedal edema Additional comments: Right lower extremity erythema in the middle third of the right bass has almost completely subsided - Neurological Exam Neurological exam: Present: CN II-XII intact, oriented X3, no focal deficits. Absent: pronater drift, facial droop, speech deficit - Skin Skin exam: Present: dry, intact
[2016-12-29] MEDS: lamoTRIgine 25 MG TABLET PO SCH (10:25)
[2016-12-29] MEDS: hydrOXYzine pamoate 25 MG CAPSULE PO SCH (10:25)
[2016-12-29] MEDS: Topiramate 100 MG TABLET PO SCH (10:25)
[2016-12-29] MEDS: BuPROPion SR (12 HR) 150 MG TABLET PO SCH (10:25)
[2016-12-29] MEDS: ARIPiprazole 5 MG TABLET PO SCH (10:26)
[2016-12-29] MEDS: (Dexlansoprazole [Dexilant] 60 MG) PO SCH (10:26)
--- NOTE | 2017-01-01 07:55 | Electrocardiograph Report ---
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
--- NOTE | 2017-01-01 07:55 | Electrocardiograph Report ---
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
== END 2016-12-29 12:00 | disposition home or self-care (01) ==
LOC: EMEROO 20:43 → 3BNU 20:43 → SUATTDRO 12-28 03:25
PROVIDERS: ADMIT Internal Medicine; ATTEND Internal Medicine

== ENCOUNTER 2017-07-04 12:06 | Inpatient (IN) ==
[2017-07-04 13:05] LABS: Bilirubin,Urine Negative (Negative); Blood,Urine Negative (Negative); Clarity,Urine Clear (Clear); Color,Urine Yellow (Yellow); Glucose,Urine (UA) Normal (Normal); Ketones,Urine Negative (Negative); Leukocyte Esterase,Urine Negative (Negative); Nitrite,Urine Negative (Negative); Protein,Urine 30 mg/dL (Neg-Trace); Specific Gravity,Urine 1.026 (1.010-1.025); Urobilinogen,Urine Normal (Normal)
[2017-07-04 13:07] LABS: Bacteria,Urine None Seen per hpf (None-Few); Hyaline Casts,Urine None Seen per lpf (None-Few); RBC,Urine 0-3 per hpf (0-3); Squamous Epithelial Cell,Urine Many per lpf (None-Few); WBC,Urine 0-3 per hpf (0-3)
[2017-07-04 13:08] LABS: Basophils # 0.1 K/mcL (0.0-0.2); Basophils % 0.6 %; Eosinophils % 0.2 %; Hematocrit 43.3 % (35.3-44.9); Hemoglobin 14.7 g/dL (11.5-15.4); Immature Granulocytes % 0.4 % (0-4); Lymphocytes # 1.6 K/mcL (0.6-4.6); Lymphocytes % 11.8 %; Mean Corpuscular HGB Conc 33.9 g/dL (31.6-35.5); Mean Corpuscular Hemoglobin 30.9 pg (28.0-33.3); Mean Corpuscular Volume 91.2 fL (83.0-100.0); Mean Platelet Volume 9.1 fL (9.4-12.4); Monocytes # 0.4 K/mcL (0.0-1.3); Monocytes % 3.1 %; Neutrophils # 11.1 K/mcL (1.6-8.9); Platelet Count 371 K/mcL (140-400); Red Blood Count 4.75 M/mcL (3.82-4.97); Red Cell Distribution Width 11.9 % (11.5-14.5); Segmented Neutrophils % 83.9 %
[2017-07-04] MEDS ORDERED: Ondansetron ODT 4 MG TAB.RAPDIS SL ONE (13:10)
[2017-07-04] MEDS ORDERED: Ondansetron 4 MG/2 ML VIAL IVP ONE (13:18)
[2017-07-04] MEDS ORDERED: *HR* FentaNYL (PF) 100 MCG/2 ML VIAL IVP ONE ×4 (13:18→15:42)
[2017-07-04] MEDS ORDERED: 0.9 % Sodium Chloride 1,000 ML IVC ONE (13:34)
--- NOTE | 2017-07-04 13:47 | Emergency Department Note ---
START Narrative - START START: I examined this patient and my medical decision-making was reviewed with the BATTERY CHECKER/PA/Advanced Practice Nurse/Resident Physician. I agree with the documented findings, disposition and treatment plan as described except to the extent set forth below. Patient does have severe left lower quadrant abdominal pain with bright red blood per stool and the patient does have labs ordered as well as IV contrast CT scan as well as orders for pain medicine and antibiotic medication. When I saw the patient she had received her medications and does feel better but the pain is not resolved. Test results are pending. [id number]
[2017-07-04 13:49] LABS: Alanine Aminotransferase 31 Units/L (7-52); Albumin 5.1 g/dL (3.5-5.7); Albumin/Globulin Ratio 1.8 (1.1-2.2); Alkaline Phosphatase 126 Units/L (34-104); Aspartate Amino Transferase 24 Units/L (13-39); BUN/Creatinine Ratio 19 (6-26); Bilirubin,Direct 0.1 mg/dL (0.0-0.2); Bilirubin,Indirect 0.4 mg/dL (0.0-1.2); Bilirubin,Total 0.5 mg/dL (0.3-1.0); Blood Urea Nitrogen 14 mg/dL (6-20); Calcium 10.5 mg/dL (8.6-10.3); Carbon Dioxide 24 mEq/L (23-29); Chloride 101 mEq/L (98-107); Globulin 2.8 g/dL (2.4-3.5); Glucose 143 mg/dL (70-105); Lipase 5 Units/L (11-82); Osmolality,Calculated 289 (280-300); Potassium 3.7 mEq/L (3.5-5.1); Sodium 138 mEq/L (136-145); Total Protein 7.9 g/dL (6.4-8.9); eGFR For African Americans > 60 (> 60); eGFR For Non-African Americans > 60 (> 60)
--- NOTE | 2017-07-04 14:21 | Emergency Department Note ---
Disposition Clinical Impression: Colitis Intractable nausea and vomiting Qualifiers: Vomiting type: unspecified Qualified Code(s): R11.2 - Nausea with vomiting, unspecified Disposition: Admitted As Inpatient Condition: Fair Reasons to Return/Additional Instructions: Admitted as inpatient Referrals: Jose Eduardo Page [Primary Care Provider] - Forms: ED Satisfaction Letter, Work/School Release Time of Disposition: 17:51 Abdominal Pain HPI - General Chief Complaint: ED Abdominal Pain Stated Complaint: ABD pain/blood in stool Source: patient Mode of arrival: ambulatory Limitations: no limitations Nursing Notes Reviewed: Yes Vital Signs Reviewed: Yes - History of Present Illness HPI Narrative: 52-year-old female presents with complaint of abdominal pain 2 days. States she has been experiencing bright red blood per rectum in the same time. States that the pain began sudden onset, sharp in nature, it is located in left lower quadrant without radiation. States that she is having subjective fevers and chills as well as nausea without vomiting. She has never experienced these symptoms in the past. Her most recent colonoscopy was approximately 3 years ago which they found polyps but no diverticulosis or signs of malignancy. Admits to bright red blood per rectum the last 2 days in a large amount per patient. States her bowel movements have otherwise been normal in consistency and color. Denies any symptoms of chest pain, shortness of breath. Pain Scale: 9 - Related Data Home Medications Medication Instructions Recorded Confirmed ALPRAZolam [Xanax 1 MG Tablet] 1 mg PO QID PRN 11/24/15 05/24/17 Aripiprazole [Abilify] 15 mg PO DAILY 03/17/16 05/24/17 Cholecalciferol (Vitamin D3) 2,000 unit PO DAILY 03/17/16 05/24/17 [Vitamin D3] Furosemide [Lasix] 20 mg PO DAILY 03/17/16 05/24/17 Prazosin HCl 2 mg PO HS 03/17/16 05/24/17 Quetiapine Fumarate [Seroquel] 400 mg PO HS 03/17/16 05/24/17 Spironolactone [Aldactone] 25 mg PO DAILY 03/17/16 05/24/17 lamoTRIgine [Lamotrigine] 100 mg PO BID 03/17/16 05/24/17 Atorvastatin Calcium [Lipitor] 40 mg PO DAILY 11/06/16 05/24/17 Ondansetron HCl [Zofran] 4 mg PO ONCE 11/06/16 05/24/17 Tizanidine HCl [Zanaflex] 4 mg PO TID PRN 11/06/16 05/24/17 Meclizine [Antivert] 25 mg PO TID 12/28/16 05/24/17 Oxycodone HCl/Acetaminophen 1 tab PO BID PRN 12/28/16 05/24/17 [Percocet 5-325 mg Tablet] Pantoprazole Sodium 40 mg PO BID 12/28/16 05/24/17 hydrOXYzine pamoate [HydrOXYzine 50 mg PO QID 12/28/16 05/24/17 Pamoate] Amlodipine Besylate 10 mg PO DAILY 07/04/17 07/04/17 Nortriptyline HCl 50 mg PO HS 07/04/17 07/04/17 Allergies Allergy/AdvReac Type Severity Reaction Status Date / Time aspirin Allergy Rash Verified 05/24/17 17:55 codeine Allergy Swelling Verified 05/24/17 17:55 of Lip/Tongue/Throat Cyclobenzaprine Allergy Rash Verified 05/24/17 17:55 [From Flexeril] gabapentin Allergy Rash Verified 05/24/17 17:55 hydrocodone [From Vicodin] Allergy Rash Verified 05/24/17 17:55 latex Allergy Rash Verified 05/24/17 17:55 tramadol [From Ultram] Allergy Rash Verified 05/24/17 17:55 All systems ED: reviewed and negative except as stated. 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: Reports: bilateral tubal ligation Psychiatric history: Reports: anxiety, ADHD, bipolar, depression, PTSD, other - Social History Smoking status: Current every day smoker Alcohol use: Reports: none Drug use: Reports: none Physical Exam - General Limitations: no limitations General appearance: alert, in distress - Head Head exam: atraumatic, normocephalic, normal inspection - ENT ENT exam: normal exam, normal oropharynx, mucous membranes moist - Chest Chest inspection: Present: normal inspection, symmetric chest wall rise - Respiratory Respiratory exam: Present: normal lung sounds bilaterally - Cardiovascular Cardiovascular exam: Present: regular rate, normal rhythm, normal heart sounds - Abdominal Exam Abdominal exam: Present: soft, tenderness, diminished bowel sounds. Absent: distention, guarding, rigidity Abdominal tenderness: Present: LLQ - Extremities Exam Extremities exam: Present: normal inspection, full ROM. Absent: tenderness, pedal edema - Neurological Exam Neurological exam: Present: alert, oriented X3 - Psychiatric Psychiatric exam: Present: normal affect, normal mood - Skin Skin exam: Present: warm, dry, intact, normal color Course Course Narrative: 52-year-old female presents with abdominal pain, bright red blood per rectum. We will obtain labs of CBC, BMP, hepatic labs, lactic acid, UA. Will also obtain abdominal CT with IV contrast to rule out diverticulosis, mesenteric ischemia Vital Signs Temperature 98.7 F 07/04/17 12:09 Pulse Rate 124 07/04/17 12:09 Respiratory Rate 18 07/04/17 12:09 Blood Pressure 161/84 07/04/17 12:09 O2 Sat by Pulse Oximetry 96 07/04/17 12:09 Temperature 98.7 F 07/04/17 12:09 Pulse Rate 105 07/04/17 16:51 Respiratory Rate 18 07/04/17 16:51 Blood Pressure 144/73 07/04/17 16:51 O2 Sat by Pulse Oximetry 97 07/04/17 16:51 Oxygen Delivery Oxygen Delivery Room Air Abdominal Pain - MDM Narrative Medical decision making narrative: 52-year-old female presenting to emergency department with complaint of abdominal pain, nausea, vomiting, bright red blood per rectum. Laboratory results have been unremarkable. We did not obtain an abdominal CT scan which showed colonic wall thickening, edema, pericolonic inflammation. We did give her fentanyl and Zofran for symptomatic relief which does help some however she is still expressing 8/10 pain as well as some intermittent nausea. We did start her on Cipro and Flagyl for suspected infectious colitis. We also contacted the hospitalist and he is agreeable for admission at this time for colitis. - Lab Data Result diagrams: 07/04/17 12:14 07/04/17 12:14 Lab Results 07/04/17 07/04/17 07/04/17 Range/Units 12:14 12:14 12:40 WBC 13.2 H (4.3-11.1) K/mcL RBC 4.75 (3.82-4.97) M/mcL Hgb 14.7 (11.5-15.4) g/dL Hct 43.3 (35.3-44.9) % MCV 91.2 (83.0-100.0) fL MCH 30.9 (28.0-33.3) pg MCHC 33.9 (31.6-35.5) g/dL RDW 11.9 (11.5-14.5) % Plt Count 371 (140-400) K/mcL MPV 9.1 L (9.4-12.4) fL Immature Gran % 0.4 (0-4) % Seg Neutrophils % 83.9 % Lymphocytes % 11.8 % Monocytes % 3.1 % Eosinophils % 0.2 % Basophils % 0.6 % Neutrophils # 11.1 H (1.6-8.9) K/mcL Lymphocytes # 1.6 (0.6-4.6) K/mcL Monocytes # 0.4 (0.0-1.3) K/mcL Eosinophils # 0.0 (0.0-0.6) K/mcL Basophils # 0.1 (0.0-0.2) K/mcL Sodium 138 (136-145) mEq/L Potassium 3.7 (3.5-5.1) mEq/L Chloride 101 (98-107) mEq/L Carbon Dioxide 24 (23-29) mEq/L BUN 14 (6-20) mg/dL Creatinine 0.74 (0.60-1.20) mg/dL Est GFR ( Amer) > 60 (> 60) Est GFR (Non-Af Amer) > 60 (> 60) BUN/Creatinine Ratio 19 (6-26) Glucose 143 H (70-105) mg/dL Calculated Osmolality 289 (280-300) Calcium 10.5 H (8.6-10.3) mg/dL Total Bilirubin 0.5 (0.3-1.0) mg/dL Direct Bilirubin 0.1 (0.0-0.2) mg/dL Indirect Bilirubin 0.4 (0.0-1.2) mg/dL AST 24 (13-39) Units/L ALT 31 (7-52) Units/L Alkaline Phosphatase 126 H (34-104) Units/L Serum Total Protein 7.9 (6.4-8.9) g/dL Albumin 5.1 (3.5-5.7) g/dL Globulin 2.8 (2.4-3.5) g/dL Albumin/Globulin Ratio 1.8 (1.1-2.2) Lipase 5 L (11-82) Units/L Urine Color Yellow (Yellow) Urine Clarity Clear (Clear) Urine pH 6.0 (5.0-8.0) pH Units Ur Specific [place] 1.026 H (1.010-1.025) Urine Protein 30 H (Neg-Trace) mg/dL Urine Glucose (UA) Normal (Normal) mg/dL Urine Ketones Negative (Negative) mg/dL Urine Blood Negative (Negative) Urine Nitrite Negative (Negative) Urine Bilirubin Negative (Negative) Urine Urobilinogen Normal (Normal) mg/dL Ur Leukocyte Esterase Negative (Negative) Urine Microscopic RBC 0-3 (0-3) per hpf Urine Microscopic WBC 0-3 (0-3) per hpf Ur Squamous Epith Cells Many H (None-Few) per lpf Urine Bacteria None Seen (None-Few) per hpf Hyaline Casts None Seen (None-Few) per lpf Ur Culture Indicated? NO (NO)
[2017-07-04] MEDS ORDERED: *HR* Promethazine 25 MG/ML VIAL IVP ONE (15:41)
[2017-07-04] MEDS ORDERED: MetroNIDAZOLE 500 MG/100 ML 500 MG/100 ML BAG IVPB ONE (16:15)
[2017-07-04] MEDS ORDERED: *HR* FentaNYL (PF) 100 MCG/2 ML VIAL IVP PRN ×2 (18:09)
[2017-07-04] MEDS ORDERED: Naloxone 0.4 MG/ML INJ IVP PRN (18:10)
--- NOTE | 2017-07-04 18:34 | Internal Med History&Physical ---
<Jose Sifuentes - Last Filed: 07/04/17 18:56> Date of Encounter: 07/04/17 Time of Encounter: 18:32 Assessment and Plan (1) Colitis Current visit: Yes Status: Acute Presents today with LLQ abdominal pain, nausea and vomiting x2 days. Also reporting thins stool with hematochezia. CT abdomen reveals colitis. Infective vs ischemic, unclear. She is hemodynamically stable and does not appear septic -Consult to surgery- Dr. Gamboa has agreed to see -Consult to GI- Dr. Hobson has agreed to see -PPI -pain management with fentanyl -lactic acid now -ATB Cipro and Flagyl -Continue antiemetics phergen and zofran -EPCD's for DVT prophylaxis -CBCD, CMP in am -tele and spo2 monitoring (2) Intractable nausea and vomiting Current visit: Yes Status: Acute Intractable nausea and vomiting for the last 2 days. Patient denying any hematemesis. Appears to be dehydrated See further planning above Qualifiers: Vomiting type: unspecified Qualified Code(s): R11.2 - Nausea with vomiting , unspecified (3) DVT prophylaxis Current visit: Yes Status: Acute Heparin 5000 units SC BID Internal Medicine - H&P: HPI Chief complaint: abdominal pain, N/V, colitis per CT Admitted From: Home Plans for Post Hospital Care: Home History of present illness: Ms. Aranda is a 52 year old female with a PMH of cancer, HTN, prior [place] and CVA. She state that 2-day ago she began experiencing LLQ pain and brigh red blood per rectum, intermittent constipation and diarrhea as well as thin stools with BM's. She denies any aggrevating factors or alleviating factors. She denies any fevers, chills weight-loss, night sweats, chest pain, or shortness of breath. She describes that pain as sharp and stabbing in nature. She denies any prior history of ulcerative colitis or IBS. Her most recent colonoscopy was three years ago and only found polyps. Past Med Surg Social Fam HX - Past Medical History Medical history: cancer, hypertension, thyroid disease Psychiatric history: anxiety, ADHD, bipolar, depression, PTSD, other - Past Surgical History Surgical History: cholecystectomy, thyroidectomy, other - Social History Smoking Status: Current every day smoker Smokeless Tobacco Status: No Alcohol use: none Drug use: none - Family History Brother Living Status: Hx Family Cardiac Disorders: Yes ([place]) Mother Living Status: Still Living Hx Family Cardiac Disorders: Yes Father Living Status: Hx Family Cardiac Disorders: Yes Internal Medicine - H&P: Meds ALPRAZolam [Xanax 1 MG Tablet] 1 mg PO BID 11/24/15 [History] Aripiprazole [Abilify] 15 mg PO DAILY 03/17/16 [History] Cholecalciferol (Vitamin D3) [Vitamin D3] 2,000 unit PO DAILY 03/17/16 [History] Furosemide [Lasix] 40 mg PO Q48H 03/17/16 [History] Prazosin HCl 2 mg PO HS 03/17/16 [History] Spironolactone [Aldactone] 25 mg PO DAILY 03/17/16 [History] lamoTRIgine [Lamotrigine] 125 mg PO BID 03/17/16 [History] Atorvastatin Calcium [Lipitor] 40 mg PO DAILY 11/06/16 [History] Ondansetron HCl [Zofran] 4 mg PO Q8H PRN 11/06/16 [History] Tizanidine HCl [Zanaflex] 4 mg PO TID PRN 11/06/16 [History] Meclizine [Antivert] 25 mg PO TID PRN 12/28/16 [History] Oxycodone HCl/Acetaminophen [Percocet 5-325 mg Tablet] 1 tab PO TID PRN [History] Pantoprazole Sodium 40 mg PO DAILY 12/28/16 [History] hydrOXYzine pamoate [HydrOXYzine Pamoate] 50 mg PO QID PRN 12/28/16 [History] Amlodipine Besylate 10 mg PO DAILY 07/04/17 [History] Nortriptyline HCl 50 mg PO HS 07/04/17 [History] Quetiapine Fumarate [Seroquel] 200 mg PO HS 07/05/17 [History] 3 Allergy/AdvReac Type Severity Reaction Status Date / Time aspirin Allergy Rash Verified 05/24/17 17:55 codeine Allergy Swelling Verified 05/24/17 17:55 of Lip/Tongue/Throat Cyclobenzaprine Allergy Rash Verified 05/24/17 17:55 [From Flexeril] gabapentin Allergy Rash Verified 05/24/17 17:55 hydrocodone [From Vicodin] Allergy Rash Verified 05/24/17 17:55 latex Allergy Rash Verified 05/24/17 17:55 tramadol [From Ultram] Allergy Rash Verified 05/24/17 17:55 All Systems PM: A 10-system review of systems was performed and is negative for pertinent findings except as documented above in the HPI. - Constitutional Constitutional: as per HPI - Cardiovascular Cardiovascular ROS IM: no chest pain, no diaphoresis, no dyspnea, no lightheadedness, no palpitations, no syncope - Respiratory Respiratory: no cough, no dyspnea, no wheezing, no excessive phlegm production - Gastrointestinal Gastrointestinal: as per HPI - Genitourinary Genitourinary: no change in urinary stream, no dysuria, no flank pain, no hematuria - Musculoskeletal Musculoskeletal ROS IM: no numbness, no tingling - Integumentary Integumentary IM: no rash, no unusual bruising - Neurological Neurological ROS: no confusion, no convulsions, no focal weakness, no numbness, no tingling, no tremor(s) - Constitutional Vitals: Temp Pulse Resp BP Pulse Ox 98.7 F 105 18 144/73 97 07/04/17 12:09 07/04/17 16:51 07/04/17 16:51 07/04/17 16:51 07/04/17 16:51 General appearance: Present: cooperative, mild distress, A&O X 3, pleasant, answers questions appropriately - Head Head exam: Present: atraumatic, normocephalic - Eye Pupils: Present: PERRL - Neck Neck exam general surgery: Present: supple, trachea midline. Absent: lymphadenopathy - Respiratory Respiratory exam: Present: CTAB. Absent: accessory muscle use, rales, rhonchi, wheezes - Cardiovascular Cardiovascular exam: Present: RRR, +S1, +S2. Absent: diastolic murmur, gallop, rubs, systolic murmur - GI/Abdominal GI/Abdominal exam: Present: normal bowel sounds, soft, tenderness (LLQ), no peritoneal signs. Absent: distended, firm, guarding - Extremities Exam Extremities exam: Present: warm, radial pulses palpable and symmetrical. Absent : calf tenderness, cyanotic, pedal edema - Neurological Exam Neurological exam: Present: oriented X3. Absent: facial droop, speech deficit - Skin Skin exam: Present: dry, intact Internal Med - H&P Results - Labs CBC & Chem 7: 07/04/17 12:14 07/04/17 12:14 Labs: Short CBC 07/04/17 Range/Units 12:14 WBC 13.2 H (4.3-11.1) K/mcL Hgb 14.7 (11.5-15.4) g/dL Hct 43.3 (35.3-44.9) % Plt Count 371 (140-400) K/mcL Neutrophils # 11.1 H (1.6-8.9) K/mcL BMP 07/04/17 12:14 Sodium 138 Potassium 3.7 Chloride 101 Carbon Dioxide 24 BUN 14 Creatinine 0.74 Glucose 143 H Calcium 10.5 H Liver Function 07/04/17 Range/Units 12:14 Total Bilirubin 0.5 (0.3-1.0) mg/dL Direct Bilirubin 0.1 (0.0-0.2) mg/dL AST 24 (13-39) Units/L ALT 31 (7-52) Units/L Alkaline Phosphatase 126 H (34-104) Units/L Albumin 5.1 (3.5-5.7) g/dL Urine 07/04/17 Range/Units 12:40 Urine Color Yellow (Yellow) Urine Clarity Clear (Clear) Urine pH 6.0 (5.0-8.0) pH Units Ur Specific [place] 1.026 H (1.010-1.025) Urine Protein 30 H (Neg-Trace) mg/dL Urine Glucose (UA) Normal (Normal) mg/dL - EKG Data -: EKG Interpreted by Myself - Impressions ITS Impressions Abdomen/Pelvis CT 07/04/17 13:21 IMPRESSION: 1. Abnormal left colon bowel wall thickening, edema and pericolonic inflammation representing nonspecific postinfectious or inflammatory origin. 2. Cholecystectomy. 3. Left renal cyst. 4. Calcified uterine leiomyoma. 5. Indeterminate hypervascular liver lesion within the dome of the liver. Recommend MRI correlation. D/ / 07/04/2017 15:44:58 Roverto Stuart MD / aminah Interpreting Provider: Roverto Stuart MD <Peyman To - Last Filed: 07/05/17 18:07> Date of Encounter: 07/04/17 Internal Medicine - H&P: HPI History of present illness: Ms. Aranda is a 52 year old female All Systems PM: A 10-system review of systems was performed and is negative for pertinent findings except as documented above in the HPI. - Constitutional Vitals: Temp Pulse Resp BP Pulse Ox 98.1 F 89 15 144/81 95 07/05/17 15:01 07/05/17 15:01 07/05/17 15:01 07/05/17 15:01 07/05/17 15:01 Internal Med - H&P Results - Labs CBC & Chem 7: 07/05/17 05:22 07/05/17 05:22 Labs: Short CBC 07/05/17 Range/Units 05:22 WBC 9.2 (4.3-11.1) K/mcL Hgb 12.3 D (11.5-15.4) g/dL Hct 36.6 (35.3-44.9) % Plt Count 287 (140-400) K/mcL Neutrophils # 6.7 (1.6-8.9) K/mcL BMP 07/05/17 05:22 Sodium 140 Potassium 3.3 L Chloride 108 H Carbon Dioxide 23 BUN 9 Creatinine 0.63 Glucose 126 H Calcium 9.1 - Attending Attestation I have personally performed a face to face evaluation on this patient. I have reviewed and agree with the care plan [employer]IST[employer] Jose Sifuentes. History and Exam by me shows: This is a 52 y/o F with known CAD, HTN, HLD pt presented to ER with abdominal pain and bright red blood per rectum. Gen: IN mild distress with pain Abd: Soft, Moderate tenderness in lower abd : No guarding, no rigidity. soft. a/p 1. Acute colitis concerned for ischemic vs Infectious NPO IV hydration Empirical abx Surgery and GI consulted
[2017-07-04] MEDS: 0.9 % Sodium Chloride 1,000 ML IVC SCH (21:24)
--- NOTE | 2017-07-04 22:12 | General Surgery Consult Note ---
Date of Encounter: 07/04/17 Time of Encounter: 22:09 Assessment and Plan (1) Colitis Current Visit: Yes Status: Acute 52F with L sided colitis; HDS; difficulty to ascertain exact cause. What is most important is getting through this bout of inflammation and planning for a CT scan as an outpatient; NPO IVF abx serial abdominal exams serial h/h due to bloody stools; concerns for ischemia if conditions worsens, then will plan for operative intervention History of Present Illness Consult date: 07/04/17 Reason for consult: abdominal pain History of present illness: 52 year old female with a PMH of cancer, HTN, prior [place] and CVA with a 3 day history of worsening abdominal pain localized to the left side of her abdomen. She states that she does have an appetite, but fears it will be worse with food. No associated nausea, vomiting. She states that today, in addition to continued pain, she also has been experiencing BRBPR. no associated dizziness, chest pain nor shortness of breath. No reports of sick contacts. She also reports intermittent loose stools. No reports of recent antibiotic use. She denies any aggrevating factors or alleviating factors. Her most recent colonoscopy was three years ago and only found polyps. CT scan was obtained, which was reviewed and interpreted by me, demonstrates colitis of her L colon. no free air nor abscess; Past Med Surg Social Fam HX - Past Medical History Medical history: cancer, hypertension, thyroid disease Psychiatric history: anxiety, ADHD, bipolar, depression, PTSD, other - Past Surgical History Surgical History: cholecystectomy, thyroidectomy, other - Social History Smoking Status: Current every day smoker Packs per day: 2 Smokeless Tobacco Status: No Alcohol use: none Drug use: none - Family History Brother Living Status: Hx Family Cardiac Disorders: Yes ([place]) Mother Living Status: Still Living Hx Family Cardiac Disorders: Yes Father Living Status: Hx Family Cardiac Disorders: Yes Medications and Allergies RX: ALPRAZolam [Xanax 1 MG Tablet] 1 mg PO BID 11/24/15 [History] RX: Aripiprazole [Abilify] 15 mg PO DAILY 03/17/16 [History] RX: Cholecalciferol (Vitamin D3) [Vitamin D3] 2,000 unit PO DAILY 03/17/16 [ History] RX: Furosemide [Lasix] 40 mg PO Q48H 03/17/16 [History] RX: Prazosin HCl 2 mg PO HS 03/17/16 [History] RX: Quetiapine Fumarate [Seroquel] 200 mg PO HS 03/17/16 [History] RX: Spironolactone [Aldactone] 25 mg PO DAILY 03/17/16 [History] RX: lamoTRIgine [Lamotrigine] 125 mg PO BID 03/17/16 [History] RX: Atorvastatin Calcium [Lipitor] 40 mg PO DAILY 11/06/16 [History] RX: Ondansetron HCl [Zofran] 4 mg PO Q8H PRN 11/06/16 [History] RX: Tizanidine HCl [Zanaflex] 4 mg PO TID PRN 11/06/16 [History] Oxycodone HCl/Acetaminophen [Percocet 5-325 mg Tablet] 1 tab PO TID PRN [History] RX: Meclizine [Antivert] 25 mg PO TID PRN 12/28/16 [History] RX: Pantoprazole Sodium 40 mg PO DAILY 12/28/16 [History] hydrOXYzine pamoate [HydrOXYzine Pamoate] 50 mg PO QID PRN 12/28/16 [History] RX: Amlodipine Besylate 10 mg PO DAILY 07/04/17 [History] RX: Nortriptyline HCl 50 mg PO HS 07/04/17 [History] 3 Allergy/AdvReac Type Severity Reaction Status Date / Time aspirin Allergy Rash Verified 05/24/17 17:55 codeine Allergy Swelling Verified 05/24/17 17:55 of Lip/Tongue/Throat Cyclobenzaprine Allergy Rash Verified 05/24/17 17:55 [From Flexeril] gabapentin Allergy Rash Verified 05/24/17 17:55 hydrocodone [From Vicodin] Allergy Rash Verified 05/24/17 17:55 latex Allergy Rash Verified 05/24/17 17:55 tramadol [From Ultram] Allergy Rash Verified 05/24/17 17:55 Review of Systems All systems PM: The remainder of the systems were reviewed and are negative General Surgery Exam Initial Vital Signs Temp Pulse Resp BP Pulse Ox 98.7 F 124 18 161/84 96 07/04/17 12:09 07/04/17 12:09 07/04/17 12:09 07/04/17 12:09 07/04/17 12:09 - General physical appearance well developed, well nourished, no distress - Eyes normal ocular movement - Neck no lymphadectomy - Respiratory normal expansion, normal respiratory effort - Cardiovascular Cardiovascular exam: Present: RRR - Abdomen Abdomen general surgery: Present: soft, tender Abdominal Tenderness: Present: LLQ - Integumentary Integumentary general surgery: Present: warm and dry, no abnormal pigmentation - Neurologic Present: CN 2-12 grossly intact - Psychiatric Psychiatric general surgery: Present: A&Ox3 Exam Initial Vital Signs Temp Pulse Resp BP Pulse Ox 98.7 F 124 18 161/84 96 07/04/17 12:09 07/04/17 12:09 07/04/17 12:09 07/04/17 12:09 07/04/17 12:09 Results - Labs 07/04/17 12:14 07/04/17 12:14 Abnormal lab results WBC 13.2 K/mcL (4.3-11.1) H 07/04/17 12:14 MPV 9.1 fL (9.4-12.4) L 07/04/17 12:14 Neutrophils # 11.1 K/mcL (1.6-8.9) H 07/04/17 12:14 Glucose 143 mg/dL (70-105) H 07/04/17 12:14 Calcium 10.5 mg/dL (8.6-10.3) H 07/04/17 12:14 Alkaline Phosphatase 126 Units/L (34-104) H 07/04/17 12:14 Lipase 5 Units/L (11-82) L 07/04/17 12:14 Ur Specific [place] 1.026 (1.010-1.025) H 07/04/17 12:40 Urine Protein 30 mg/dL (Neg-Trace) H 07/04/17 12:40 Ur Squamous Epith Cells Many per lpf (None-Few) H 07/04/17 12:40 All other labs normal. - Imaging CT scan - abdomen: report reviewed, image reviewed CT scan - pelvis: report reviewed, image reviewed Consult Discharge Plan - Plan Referrals: Jose Eduardo Page [Primary Care Provider] -
[2017-07-05] MEDS ORDERED: MetroNIDAZOLE 500 MG/100 ML 500 MG/100 ML BAG IVPB SCH
[2017-07-05] MEDS: *HR* FentaNYL (PF) 100 MCG/2 ML VIAL IVP PRN ×3 (01:13→09:12)
[2017-07-05] MEDS: 0.9 % Sodium Chloride 1,000 ML IVC SCH ×2 (04:48→18:09)
[2017-07-05] MEDS: Ondansetron 4 MG/2 ML VIAL IVP PRN (05:32)
[2017-07-05] MEDS: MetroNIDAZOLE 500 MG/100 ML 500 MG/100 ML BAG IVPB SCH ×3 (05:41→21:48)
[2017-07-05] MEDS: Pantoprazole 40 MG VIAL IVP SCH ×2 (05:45→18:09)
[2017-07-05 05:53] LABS: Basophils % 0.3 %; Eosinophils % 0.1 %; Hematocrit 36.6 % (35.3-44.9); Immature Granulocytes % 0.3 % (0-4); Lymphocytes # 1.8 K/mcL (0.6-4.6); Lymphocytes % 19.7 %; Mean Corpuscular HGB Conc 33.6 g/dL (31.6-35.5); Mean Corpuscular Hemoglobin 30.9 pg (28.0-33.3); Mean Platelet Volume 9.1 fL (9.4-12.4); Monocytes # 0.6 K/mcL (0.0-1.3); Monocytes % 6.2 %; Neutrophils # 6.7 K/mcL (1.6-8.9); Platelet Count 287 K/mcL (140-400); Red Blood Count 3.98 M/mcL (3.82-4.97); Red Cell Distribution Width 12.1 % (11.5-14.5); Segmented Neutrophils % 73.4 %
[2017-07-05 06:04] LABS: BUN/Creatinine Ratio 14 (6-26); Blood Urea Nitrogen 9 mg/dL (6-20); Calcium 9.1 mg/dL (8.6-10.3); Carbon Dioxide 23 mEq/L (23-29); Chloride 108 mEq/L (98-107); Glucose 126 mg/dL (70-105); Osmolality,Calculated 290 (280-300); Potassium 3.3 mEq/L (3.5-5.1); Sodium 140 mEq/L (136-145); eGFR For African Americans > 60 (> 60); eGFR For Non-African Americans > 60 (> 60)
[2017-07-05 06:21] LABS: Hemoglobin 12.3 g/dL (11.5-15.4)
[2017-07-05] MEDS ORDERED: Potassium Chloride 40 MEQ, Lidocaine 1% 2 ML in D5% in Water 500 ML IVPB ONE (07:41)
[2017-07-05] MEDS: *HR* Promethazine 25 MG/ML VIAL IVP PRN ×2 (09:12)
[2017-07-05] MEDS ORDERED: OXYCODONE Oral CONC 10 MG/0.5 ML ORAL.SYG SL PRN (09:31)
--- NOTE | 2017-07-05 11:04 | Internal Med Progress Note ---
<Roger Milan - Last Filed: 07/05/17 13:53> Date of Encounter: 07/05/17 Time of Encounter: 11:01 - Assessment and plan (1) Colitis Current Visit: Yes Status: Acute Assessment and plan: Patient has evidence of colitis on CT scan, etiology is unclear. Patient is nothing by mouth IV fluids Patient has analgesics ordered. Continue with Cipro and Flagyl Continue to monitor hemoglobin due to the patient having bloody stools. Surgery has been consult and is following this patient. (2) Intractable nausea and vomiting Current Visit: Yes Status: Acute Assessment and plan: Patient is still having nausea but states that the vomiting has improved Patient has antiemetics ordered Qualifiers: Vomiting type: unspecified Qualified Code(s): R11.2 - Nausea with vomiting , unspecified (3) Tobacco abuse Current Visit: No Status: Chronic Assessment and plan: Recommend cessation (4) DVT prophylaxis Current Visit: Yes Status: Acute Assessment and plan: Patient has intermittent pneumatic compression ordered for DVT prophylaxis. - Subjective Interval history: Patient states that she is still having significant abdominal pain. She states that this is located in the left lower quadrant tenderness present to the suprapubic and into her back. Patient states that she is still having bloody bowel movements some that have been bright red and somewhat have been dark in color. Patient is rated her pain as a 10 out of 10 and states that it has not been getting any better. - Constitutional Vitals: Temp Pulse Resp BP Pulse Ox 97.5 F L 75 15 131/77 95 07/05/17 10:46 07/05/17 10:46 07/05/17 10:46 07/05/17 10:46 07/05/17 10:46 General appearance: Present: cooperative, mild distress, A&O X 3, pleasant, answers questions appropriately - Head Head exam: Present: atraumatic, normocephalic - Neck Neck exam general surgery: Present: full ROM, normal inspection, trachea midline - Respiratory Respiratory exam: Present: CTAB. Absent: accessory muscle use, rales, rhonchi, wheezes - Cardiovascular Cardiovascular exam: Present: +S1, +S2, tachycardia. Absent: diastolic murmur, gallop, rubs, systolic murmur - GI/Abdominal GI/Abdominal exam: Present: normal bowel sounds, soft, tenderness (Patient has significant tenderness to the left lower quadrant that moves around to her back. ), no peritoneal signs. Absent: distended - Extremities Exam Extremities exam: Present: warm. Absent: pedal edema, tenderness - Neurological Exam Neurological exam: Present: alert, oriented X3, no focal deficits. Absent: facial droop, speech deficit - Psychiatric Psychiatric exam: Present: normal affect, normal mood Additional comments: Patient is tearful on exam due to the pain. - Skin Skin exam: Present: dry, intact, warm Internal Medicine: Result - Labs CBC & Chem 7: 07/05/17 05:22 07/05/17 05:22 Labs: Short CBC 07/05/17 Range/Units 05:22 WBC 9.2 (4.3-11.1) K/mcL Hgb 12.3 D (11.5-15.4) g/dL Hct 36.6 (35.3-44.9) % Plt Count 287 (140-400) K/mcL Neutrophils # 6.7 (1.6-8.9) K/mcL BMP 07/05/17 05:22 Sodium 140 Potassium 3.3 L Chloride 108 H Carbon Dioxide 23 BUN 9 Creatinine 0.63 Glucose 126 H Calcium 9.1 Consult Discharge Plan - Plan Referrals: Jose Eduardo Page [Primary Care Provider] - <Armaan Aviles - Last Filed: 07/05/17 18:37> Date of Encounter: 07/05/17 - Assessment and plan (1) Colitis, infectious Current Visit: Yes Status: Suspected Assessment and plan: Suspect infectious. Responding to IV abx. (2) HTN (hypertension) Current Visit: Yes Status: Chronic Qualifiers: Hypertension type: essential hypertension Qualified Code(s): I10 - Essential (primary) hypertension (3) Intractable nausea and vomiting Current Visit: Yes Status: Acute Qualifiers: Vomiting type: unspecified Qualified Code(s): R11.2 - Nausea with vomiting , unspecified (4) Anxiety Current Visit: No Status: Chronic (5) Tobacco abuse Current Visit: No Status: Chronic - Constitutional Vitals: Temp Pulse Resp BP Pulse Ox 98.1 F 89 15 144/81 95 07/05/17 15:01 07/05/17 15:01 07/05/17 15:01 07/05/17 15:01 07/05/17 15:01 Internal Medicine: Result - Labs CBC & Chem 7: 07/05/17 18:07 07/05/17 05:22 Labs: Short CBC 07/05/17 07/05/17 Range/Units 05:22 18:07 WBC 9.2 (4.3-11.1) K/mcL Hgb 12.3 D 12.1 (11.5-15.4) g/dL Hct 36.6 36.6 (35.3-44.9) % Plt Count 287 (140-400) K/mcL Neutrophils # 6.7 (1.6-8.9) K/mcL BMP 07/05/17 05:22 Sodium 140 Potassium 3.3 L Chloride 108 H Carbon Dioxide 23 BUN 9 Creatinine 0.63 Glucose 126 H Calcium 9.1 - Attending Attestation I examined this patient and my medical decision-making was reviewed with the Resident Physician on 07/05/17. I agree with the documented findings, disposition and treatment plan as described except to the extent set forth below. Ms Aranda has been admitted for acute colitis and hematochezia. She remains moderate to high risk due to potential for worsening clinical status. Ms Aranda is thirsty. Feels like she is having less rectal bleeding. Stool now has some yellow in it. No fever. Still with pain but says it is getting better. Ususally on Xanax and feels very anxious. Exam Alert. Mod distress Mucus membranes dry Heart reg No wheeze Abd with scant BS. Tender midline I/P 1. Colitis 2. Anxiety - start Ativan Further diagnoses and plan as above.
[2017-07-05] MEDS: Acetaminophen IV 1,000 MG/100 ML INFUS..BTL IVPB SCH ×3 (12:06→20:54)
[2017-07-05] MEDS: Ketorolac 15 MG/ML VIAL IVP SCH ×3 (12:11→23:23)
--- NOTE | 2017-07-05 12:12 | General Surgery Progress Note ---
<JhonyceceliaBrittney H - Last Filed: 07/05/17 12:13> Date of Encounter: 07/05/17 Time of Encounter: 12:06 - Assessment and Plan (1) Colitis Current Visit: Yes Status: Acute 52-year-old female with left-sided colitis. Unclear etiology. Bloody stools, concerns for ischemic bowel. Plan to treat medically so inflammation resolves with likely colonoscopy as an outpatient. -CT of abdomen and pelvis on 07/04/2017 demonstrates left-sided colon bowel wall thickening, edema and, and pericolonic inflammation. Also indeterminate hypervascular liver lesion on the dome of the bladder. -Needs MRI follow-up of liver lesion. -Keep NPO -IVF -ABX -Pain control -Trend H&H (12.3 today, 14.7 yesterday). -Serial abdominal exams. Subjective Patient reports: no new complaints, still having pain, flatus, bowel movement, blood in stool (Patient still complaing of BRBPR. Melena two days ago.), afebrile Objective Vital Signs - Last 8 Hours Temp Pulse Resp BP Pulse Ox 07/05/17 10:46 97.5 F L 75 15 131/77 95 07/05/17 08:58 96 07/05/17 07:13 98.6 F 91 15 129/82 96 07/05/17 05:25 99.3 F 98 15 163/85 97 Intake and Output 07/04/17 07/05/17 07/05/17 23:59 07:59 15:59 Intake Total 1300 / 1300 1300 / 1300 0 / 0 Output Total 0 / 0 250 / 250 500 / 500 Balance 1300 / 1300 1050 / 1050 -500 / -500 Intake: IV Fluids 1300 / 1300 1300 / 1300 0.9 % Sodium Chloride 1,000 ML 1000 / 1000 1000 / 1000 @ 125 mls/hr IVC .Q8H [facility] Rx#: [id number] Cipro Premix 400 MG/200 ML 400 200 / 200 200 / 200 mg In 200 ml @ 200 mls/hr IVPB Q12HR [facility] Rx#:[id number] Flagyl Premix 500 MG/100 ML 500 100 / 100 100 / 100 mg In 100 ml @ 100 mls/hr IVPB Q8H [facility] Rx#:[id number] Oral 0 / 0 0 / 0 0 / 0 Output: Urine 0 / 0 250 / 250 500 / 500 Other: Meal NPO BREAKFAST Weight 87.5 kg Blood Glucose* 126 141 - General physical appearance well developed, well nourished, moderate pain - Eyes normal ocular movement - ENT dry mucosa, atraumatic - Respiratory normal expansion, normal respiratory effort, clear to auscultation - Cardiovascular Cardiovascular exam: Present: RRR, no murmurs/rubs/gallops - Abdomen Abdomen: Present: bowel sounds present, soft Abdominal Tenderness: LLQ, suprapubic Hernia: none - Integumentary no rash, no growths - Neurologic CN 2-12 grossly intact, normal coordination - Musculoskeletal normal posture - Psychiatric oriented to time, oriented to person, oriented to place, speech is normal, memory intact - Labs 07/05/17 05:22 07/05/17 05:22 Diabetes panel 07/05/17 Range/Units 05:22 Sodium 140 (136-145) mEq/L Potassium 3.3 L (3.5-5.1) mEq/L Chloride 108 H (98-107) mEq/L Carbon Dioxide 23 (23-29) mEq/L BUN 9 (6-20) mg/dL Creatinine 0.63 (0.60-1.20) mg/dL Glucose 126 H (70-105) mg/dL Calcium 9.1 (8.6-10.3) mg/dL Calcium panel 07/05/17 Range/Units 05:22 Calcium 9.1 (8.6-10.3) mg/dL Pituitary panel 07/05/17 Range/Units 05:22 Sodium 140 (136-145) mEq/L Potassium 3.3 L (3.5-5.1) mEq/L Chloride 108 H (98-107) mEq/L Carbon Dioxide 23 (23-29) mEq/L BUN 9 (6-20) mg/dL Creatinine 0.63 (0.60-1.20) mg/dL Glucose 126 H (70-105) mg/dL Calcium 9.1 (8.6-10.3) mg/dL Adrenal panel 07/05/17 Range/Units 05:22 Sodium 140 (136-145) mEq/L Potassium 3.3 L (3.5-5.1) mEq/L Chloride 108 H (98-107) mEq/L Carbon Dioxide 23 (23-29) mEq/L BUN 9 (6-20) mg/dL Creatinine 0.63 (0.60-1.20) mg/dL Glucose 126 H (70-105) mg/dL Calcium 9.1 (8.6-10.3) mg/dL Consult Discharge Plan - Plan Referrals: Jose Eduardo Page [Primary Care Provider] - <Chavez Gamboa - Last Filed: 07/06/17 11:14> Date of Encounter: 07/06/17 - Assessment and Plan (1) Colitis Current Visit: Yes Status: Acute Objective Vital Signs - Last 8 Hours Temp Pulse Resp BP Pulse Ox 07/06/17 07:54 97.7 F 76 16 154/89 97 07/06/17 04:44 97.9 F 74 14 146/82 96 Intake and Output 07/05/17 07/06/17 07/06/17 23:59 07:59 15:59 Intake Total 500 / 500 1300 / 1300 Output Total 600 / 600 1000 / 1000 Balance -100 / -100 300 / 300 Intake: IV Fluids 500 / 500 1300 / 1300 0.9 % Sodium Chloride 1,000 ML 1000 / 1000 @ 125 mls/hr IVC .Q8H [facility] Rx#: [id number] Ofirmev 1,000 mg/100 ml 1,000 100 / 100 100 / 100 mg In 100 ml @ 400 mls/hr IVPB Q6H [facility] Rx#:[id number] Cipro Premix 400 MG/200 ML 400 200 / 200 200 / 200 mg In 200 ml @ 200 mls/hr IVPB Q12HR [facility] Rx#:[id number] Flagyl Premix 500 MG/100 ML 500 200 / 200 mg In 100 ml @ 100 mls/hr IVPB Q8H [facility] Rx#:[id number] Oral 0 / 0 0 / 0 Output: Urine 600 / 600 1000 / 1000 Other: Meal NPO Weight 87.453 kg Blood Glucose* 101 92 Patient Weight 07/06/17 23:59 Weight 87.453 kg - Labs 07/06/17 04:48 07/06/17 04:48 Diabetes panel 07/06/17 Range/Units 04:48 Sodium 140 (136-145) mEq/L Potassium 3.4 L (3.5-5.1) mEq/L Chloride 110 H (98-107) mEq/L Carbon Dioxide 24 (23-29) mEq/L BUN 8 (6-20) mg/dL Creatinine 0.64 (0.60-1.20) mg/dL Glucose 98 (70-105) mg/dL Calcium 8.4 L (8.6-10.3) mg/dL AST 17 (13-39) Units/L ALT 20 (7-52) Units/L Alkaline Phosphatase 84 (34-104) Units/L Albumin 3.6 (3.5-5.7) g/dL Calcium panel 07/06/17 Range/Units 04:48 Calcium 8.4 L (8.6-10.3) mg/dL Albumin 3.6 (3.5-5.7) g/dL Pituitary panel 07/06/17 Range/Units 04:48 Sodium 140 (136-145) mEq/L Potassium 3.4 L (3.5-5.1) mEq/L Chloride 110 H (98-107) mEq/L Carbon Dioxide 24 (23-29) mEq/L BUN 8 (6-20) mg/dL Creatinine 0.64 (0.60-1.20) mg/dL Glucose 98 (70-105) mg/dL Calcium 8.4 L (8.6-10.3) mg/dL Adrenal panel 07/06/17 Range/Units 04:48 Sodium 140 (136-145) mEq/L Potassium 3.4 L (3.5-5.1) mEq/L Chloride 110 H (98-107) mEq/L Carbon Dioxide 24 (23-29) mEq/L BUN 8 (6-20) mg/dL Creatinine 0.64 (0.60-1.20) mg/dL Glucose 98 (70-105) mg/dL Calcium 8.4 L (8.6-10.3) mg/dL Total Bilirubin 0.5 (0.3-1.0) mg/dL AST 17 (13-39) Units/L ALT 20 (7-52) Units/L Alkaline Phosphatase 84 (34-104) Units/L Albumin 3.6 (3.5-5.7) g/dL - Attending Attestation patient seen and examined; i have reviewed all pertinent labs, imaging and notes, including this one. I agree with the above assessment and plan and wish to add the following... 52F with left sided colitis; still with pain; afebrile; non peritoneal; cont with bowel rest, abx, IVF, and pain control; once she has resolution of pain, then okay for discharge with follow up in my clinic for planning of colonoscopy
[2017-07-05] MEDS: OXYCODONE Oral CONC 10 MG/0.5 ML ORAL.SYG SL PRN ×2 (14:08→21:47)
[2017-07-05 18:17] LABS: Hematocrit 36.6 % (35.3-44.9); Hemoglobin 12.1 g/dL (11.5-15.4)
[2017-07-05] MEDS: *HR* LORazepam 2 MG/ML VIAL IVP PRN (20:55)
[2017-07-06] MEDS: Acetaminophen IV 1,000 MG/100 ML INFUS..BTL IVPB SCH ×4 (03:18→22:19)
[2017-07-06] MEDS: 0.9 % Sodium Chloride 1,000 ML IVC SCH ×4 (03:20→23:02)
[2017-07-06] MEDS: Ketorolac 15 MG/ML VIAL IVP SCH ×3 (05:00→18:30)
[2017-07-06 05:03] LABS: Basophils % 0.5 %; Eosinophils # 0.1 K/mcL (0.0-0.6); Eosinophils % 1.4 %; Hemoglobin 11.1 g/dL (11.5-15.4); Immature Granulocytes % 0.5 % (0-4); Lymphocytes # 2.1 K/mcL (0.6-4.6); Lymphocytes % 29.2 %; Mean Corpuscular HGB Conc 33.6 g/dL (31.6-35.5); Mean Corpuscular Hemoglobin 31.2 pg (28.0-33.3); Mean Corpuscular Volume 92.7 fL (83.0-100.0); Monocytes # 0.5 K/mcL (0.0-1.3); Monocytes % 6.4 %; Neutrophils # 4.5 K/mcL (1.6-8.9); Platelet Count 235 K/mcL (140-400); Red Blood Count 3.56 M/mcL (3.82-4.97); Red Cell Distribution Width 12.1 % (11.5-14.5)
[2017-07-06 05:22] LABS: Alanine Aminotransferase 20 Units/L (7-52); Albumin 3.6 g/dL (3.5-5.7); Albumin/Globulin Ratio 1.7 (1.1-2.2); Alkaline Phosphatase 84 Units/L (34-104); Aspartate Amino Transferase 17 Units/L (13-39); BUN/Creatinine Ratio 13 (6-26); Bilirubin,Total 0.5 mg/dL (0.3-1.0); Blood Urea Nitrogen 8 mg/dL (6-20); Calcium 8.4 mg/dL (8.6-10.3); Carbon Dioxide 24 mEq/L (23-29); Chloride 110 mEq/L (98-107); Globulin 2.1 g/dL (2.4-3.5); Glucose 98 mg/dL (70-105); Osmolality,Calculated 288 (280-300); Potassium 3.4 mEq/L (3.5-5.1); Sodium 140 mEq/L (136-145); Total Protein 5.7 g/dL (6.4-8.9); eGFR For African Americans > 60 (> 60); eGFR For Non-African Americans > 60 (> 60)
[2017-07-06] MEDS: OXYCODONE Oral CONC 10 MG/0.5 ML ORAL.SYG SL PRN ×3 (05:56→19:44)
[2017-07-06] MEDS: Pantoprazole 40 MG VIAL IVP SCH ×2 (05:56→19:04)
[2017-07-06] MEDS: MetroNIDAZOLE 500 MG/100 ML 500 MG/100 ML BAG IVPB SCH ×3 (05:59→22:23)
--- NOTE | 2017-07-06 09:11 | Internal Med Progress Note ---
<Roger Milan - Last Filed: 07/06/17 09:04> Date of Encounter: 07/06/17 Time of Encounter: 09:05 - Assessment and plan (1) Colitis Current Visit: Yes Status: Acute Assessment and plan: Patient has evidence of colitis on CT scan, etiology is unclear. Patient is nothing by mouth IV fluids Patient has analgesics ordered. Continue with Cipro and Flagyl Continue to monitor hemoglobin due to the patient having bloody stools. Surgery has been consult and is following this patient. (2) Intractable nausea and vomiting Current Visit: Yes Status: Acute Assessment and plan: Patient has antiemetics ordered Qualifiers: Vomiting type: unspecified Qualified Code(s): R11.2 - Nausea with vomiting , unspecified (3) Tobacco abuse Current Visit: No Status: Chronic Assessment and plan: Recommend cessation (4) DVT prophylaxis Current Visit: Yes Status: Acute Assessment and plan: Patient has intermittent pneumatic compression ordered for DVT prophylaxis. - Subjective Interval history: Patient states that she is still having abdominal pain however has improved. Yesterday her pain as a 10 out of 10 and currently this morning and is a 7 out of 10. Patient states that she is still having pain in the left lower quadrant however she does have some intermittent pain in her right abdomen. Patient denies having a bowel movement today. - Constitutional Vitals: Temp Pulse Resp BP Pulse Ox 97.7 F 76 16 154/89 97 07/06/17 07:54 07/06/17 07:54 07/06/17 07:54 07/06/17 07:54 07/06/17 07:54 General appearance: Present: cooperative, A&O X 3, pleasant, no acute distress, answers questions appropriately Exam: Patient appears to be much more comfortable today than she did yesterday. - Head Head exam: Present: atraumatic, normocephalic - Neck Neck exam general surgery: Present: full ROM, normal inspection, trachea midline - Respiratory Respiratory exam: Present: CTAB. Absent: accessory muscle use, rales, rhonchi, wheezes - Cardiovascular Cardiovascular exam: Present: RRR, +S1, +S2. Absent: diastolic murmur, gallop, rubs, systolic murmur - GI/Abdominal GI/Abdominal exam: Present: soft, tenderness (Diffuse abdominal tenderness), no peritoneal signs. Absent: distended - Extremities Exam Extremities exam: Present: warm. Absent: pedal edema, tenderness - Neurological Exam Neurological exam: Present: alert, oriented X3, no focal deficits. Absent: facial droop, speech deficit - Psychiatric Psychiatric exam: Present: normal affect, normal mood - Skin Skin exam: Present: dry, intact, warm Internal Medicine: Result - Labs CBC & Chem 7: 07/06/17 04:48 07/06/17 04:48 Labs: Short CBC 07/05/17 07/06/17 Range/Units 18:07 04:48 WBC 7.3 (4.3-11.1) K/mcL Hgb 12.1 11.1 L (11.5-15.4) g/dL Hct 36.6 33.0 L (35.3-44.9) % Plt Count 235 (140-400) K/mcL Neutrophils # 4.5 (1.6-8.9) K/mcL BMP 07/06/17 04:48 Sodium 140 Potassium 3.4 L Chloride 110 H Carbon Dioxide 24 BUN 8 Creatinine 0.64 Glucose 98 Calcium 8.4 L Liver Function 07/06/17 Range/Units 04:48 Total Bilirubin 0.5 (0.3-1.0) mg/dL AST 17 (13-39) Units/L ALT 20 (7-52) Units/L Alkaline Phosphatase 84 (34-104) Units/L Albumin 3.6 (3.5-5.7) g/dL Consult Discharge Plan - Plan Referrals: Jose Eduardo Page [Primary Care Provider] - <Armaan Aviles - Last Filed: 07/06/17 16:26> Date of Encounter: 07/06/17 - Assessment and plan (1) Colitis, infectious Current Visit: Yes Status: Suspected (2) HTN (hypertension) Current Visit: Yes Status: Chronic Qualifiers: Hypertension type: essential hypertension Qualified Code(s): I10 - Essential (primary) hypertension (3) Intractable nausea and vomiting Current Visit: Yes Status: Resolved Qualifiers: Vomiting type: unspecified Qualified Code(s): R11.2 - Nausea with vomiting , unspecified (4) Anxiety Current Visit: No Status: Chronic (5) Tobacco abuse Current Visit: No Status: Chronic - Constitutional Vitals: Temp Pulse Resp BP Pulse Ox 98.5 F 70 14 107/70 97 07/06/17 12:36 07/06/17 12:36 07/06/17 12:36 07/06/17 12:36 07/06/17 12:36 Internal Medicine: Result - Labs CBC & Chem 7: 07/06/17 04:48 07/06/17 04:48 Labs: Short CBC 07/05/17 07/06/17 Range/Units 18:07 04:48 WBC 7.3 (4.3-11.1) K/mcL Hgb 12.1 11.1 L (11.5-15.4) g/dL Hct 36.6 33.0 L (35.3-44.9) % Plt Count 235 (140-400) K/mcL Neutrophils # 4.5 (1.6-8.9) K/mcL BMP 07/06/17 04:48 Sodium 140 Potassium 3.4 L Chloride 110 H Carbon Dioxide 24 BUN 8 Creatinine 0.64 Glucose 98 Calcium 8.4 L Liver Function 07/06/17 Range/Units 04:48 Total Bilirubin 0.5 (0.3-1.0) mg/dL AST 17 (13-39) Units/L ALT 20 (7-52) Units/L Alkaline Phosphatase 84 (34-104) Units/L Albumin 3.6 (3.5-5.7) g/dL - Attending Attestation I examined this patient and my medical decision-making was reviewed with the Resident Physician on 07/06/17. I agree with the documented findings, disposition and treatment plan as described except to the extent set forth below. Ms Aranda is currently admitted with acute colitis. She remains moderate to high risk due to potential for worsening clinical status. Ms Aranda is resting at this time. She still has some pain. No fever. No BM. Ativan has helped anxiety. Exam alert Comfortable Mucus membranes dry Heart not tachy No wheeze abd soft - diffuse tenderness I/P 1. Colitis Further diagnoses and plan as above.
[2017-07-06] MEDS: *HR* Promethazine 25 MG/ML VIAL IVP PRN (09:29)
[2017-07-06] MEDS: *HR* LORazepam 2 MG/ML VIAL IVP PRN ×2 (09:34→22:20)
--- NOTE | 2017-07-06 17:12 | General Surgery Progress Note ---
<GuyBrittney H - Last Filed: 07/06/17 17:10> Date of Encounter: 07/06/17 Time of Encounter: 11:10 - Assessment and Plan (1) Colitis Current Visit: Yes Status: Acute 52-year-old female with left-sided colitis. Unclear etiology. Bloody stools initially with concerns for ischemic bowel. Plan to treat medically so inflammation resolves with likely colonoscopy as an outpatient. -CT of abdomen and pelvis on 07/04/2017 demonstrates left-sided colon bowel wall thickening, edema and, and pericolonic inflammation. Also indeterminate hypervascular liver lesion on the dome of the bladder. -Needs MRI follow-up of liver lesion. -Keep NPO as patient's pain has not improved. -IVF -ABX -Pain control -Trend H&H (11.1 today, 12.1 yesterday). -Serial abdominal exams. -We will consider rescanning abdomen and pelvis tomorrow. Subjective Patient reports: still having pain (Pain is the same.), flatus, no bowel movement (Urge to defecate, but cannot go.), nausea (No vomiting.), afebrile Objective Vital Signs - Last 8 Hours Temp Pulse Resp BP Pulse Ox 07/06/17 16:24 98.1 F 92 15 135/84 96 07/06/17 12:36 98.5 F 70 14 107/70 97 Intake and Output 07/06/17 07/06/17 07/06/17 07:59 15:59 23:59 Intake Total 1400 / 1400 1000 / 1000 0 / 0 Output Total 1000 / 1000 500 / 500 200 / 200 Balance 400 / 400 500 / 500 -200 / -200 Intake: IV Fluids 1400 / 1400 1000 / 1000 0.9 % Sodium Chloride 1,000 ML 1000 / 1000 1000 / 1000 @ 125 mls/hr IVC .Q8H [facility] Rx#: [id number] Ofirmev 1,000 mg/100 ml 1,000 100 / 100 mg In 100 ml @ 400 mls/hr IVPB Q6H [facility] Rx#:[id number] Cipro Premix 400 MG/200 ML 400 200 / 200 mg In 200 ml @ 200 mls/hr IVPB Q12HR [facility] Rx#:[id number] Flagyl Premix 500 MG/100 ML 500 100 / 100 mg In 100 ml @ 100 mls/hr IVPB Q8H [facility] Rx#:[id number] Oral 0 / 0 0 / 0 0 / 0 Output: Urine 1000 / 1000 500 / 500 200 / 200 Other: Weight 87.453 kg Blood Glucose* 92 95 Patient Weight 07/06/17 23:59 Weight 87.453 kg - General physical appearance well developed, well nourished, moderate pain - Eyes normal ocular movement - ENT normocephalic, CN 2-12 grossly intact - Respiratory normal expansion, normal respiratory effort, clear to auscultation - Cardiovascular Cardiovascular exam: Present: RRR, no murmurs/rubs/gallops - Abdomen Abdomen: Present: bowel sounds present, soft Abdominal Tenderness: LLQ Hernia: none - Integumentary no rash - Neurologic CN 2-12 grossly intact, normal coordination - Musculoskeletal normal posture - Psychiatric oriented to time, oriented to person, oriented to place, speech is normal, memory intact - Labs 07/06/17 04:48 07/06/17 04:48 Diabetes panel 07/06/17 Range/Units 04:48 Sodium 140 (136-145) mEq/L Potassium 3.4 L (3.5-5.1) mEq/L Chloride 110 H (98-107) mEq/L Carbon Dioxide 24 (23-29) mEq/L BUN 8 (6-20) mg/dL Creatinine 0.64 (0.60-1.20) mg/dL Glucose 98 (70-105) mg/dL Calcium 8.4 L (8.6-10.3) mg/dL AST 17 (13-39) Units/L ALT 20 (7-52) Units/L Alkaline Phosphatase 84 (34-104) Units/L Albumin 3.6 (3.5-5.7) g/dL Calcium panel 07/06/17 Range/Units 04:48 Calcium 8.4 L (8.6-10.3) mg/dL Albumin 3.6 (3.5-5.7) g/dL Pituitary panel 07/06/17 Range/Units 04:48 Sodium 140 (136-145) mEq/L Potassium 3.4 L (3.5-5.1) mEq/L Chloride 110 H (98-107) mEq/L Carbon Dioxide 24 (23-29) mEq/L BUN 8 (6-20) mg/dL Creatinine 0.64 (0.60-1.20) mg/dL Glucose 98 (70-105) mg/dL Calcium 8.4 L (8.6-10.3) mg/dL Adrenal panel 07/06/17 Range/Units 04:48 Sodium 140 (136-145) mEq/L Potassium 3.4 L (3.5-5.1) mEq/L Chloride 110 H (98-107) mEq/L Carbon Dioxide 24 (23-29) mEq/L BUN 8 (6-20) mg/dL Creatinine 0.64 (0.60-1.20) mg/dL Glucose 98 (70-105) mg/dL Calcium 8.4 L (8.6-10.3) mg/dL Total Bilirubin 0.5 (0.3-1.0) mg/dL AST 17 (13-39) Units/L ALT 20 (7-52) Units/L Alkaline Phosphatase 84 (34-104) Units/L Albumin 3.6 (3.5-5.7) g/dL Consult Discharge Plan - Plan Referrals: Jose Eduardo Page [Primary Care Provider] - <Selam Man - Last Filed: 07/06/17 18:57> Date of Encounter: 07/06/17 - Assessment and Plan (1) Colitis Current Visit: Yes Status: Acute CT scan reviewed and patient sigmoid colon thickened and edematous patient reports no significant improvement in pain since admission - if pain unchanged tomorrow will reCT abdomen continue npo ivf hydration prn pain control gi/dvt prophylaxis check Cdiff serial abd exams wbc wnl (2) DVT prophylaxis Current Visit: Yes Status: Acute (3) HTN (hypertension) Current Visit: Yes Status: Chronic normotensive, monitor Qualifiers: Hypertension type: essential hypertension Qualified Code(s): I10 - Essential (primary) hypertension (4) Intractable nausea and vomiting Current Visit: Yes Status: Resolved Qualifiers: Vomiting type: unspecified Qualified Code(s): R11.2 - Nausea with vomiting , unspecified Subjective Patient reports: no new complaints, still having pain, flatus, no bowel movement , nausea Objective Vital Signs - Last 8 Hours Temp Pulse Resp BP Pulse Ox 07/06/17 16:24 98.1 F 92 15 135/84 96 07/06/17 12:36 98.5 F 70 14 107/70 97 Intake and Output 07/06/17 07/06/17 07/06/17 07:59 15:59 23:59 Intake Total 1400 / 1400 1000 / 1000 0 / 0 Output Total 1000 / 1000 500 / 500 200 / 200 Balance 400 / 400 500 / 500 -200 / -200 Intake: IV Fluids 1400 / 1400 1000 / 1000 0.9 % Sodium Chloride 1,000 ML 1000 / 1000 1000 / 1000 @ 125 mls/hr IVC .Q8H [facility] Rx#: [id number] Ofirmev 1,000 mg/100 ml 1,000 100 / 100 mg In 100 ml @ 400 mls/hr IVPB Q6H [facility] Rx#:[id number] Cipro Premix 400 MG/200 ML 400 200 / 200 mg In 200 ml @ 200 mls/hr IVPB Q12HR [facility] Rx#:[id number] Flagyl Premix 500 MG/100 ML 500 100 / 100 mg In 100 ml @ 100 mls/hr IVPB Q8H [facility] Rx#:[id number] Oral 0 / 0 0 / 0 0 / 0 Output: Urine 1000 / 1000 500 / 500 200 / 200 Other: Weight 87.453 kg Blood Glucose* 92 95 83 Patient Weight 07/06/17 23:59 Weight 87.453 kg - General physical appearance well developed, well nourished, moderate pain - Eyes PERRL, normal ocular movement - ENT normal mucosa, normocephalic - Neck Neck exam: trachea midline - Respiratory normal expansion, clear to auscultation - Cardiovascular Cardiovascular exam: Present: RRR, no murmurs/rubs/gallops - Abdomen Abdomen: Present: bowel sounds present, soft, tender. Absent: distended, guarding, rebound Abdominal Tenderness: LLQ - Integumentary no rash, no growths - Neurologic CN 2-12 grossly intact, normal coordination - Musculoskeletal normal posture - Psychiatric oriented to time, oriented to person, oriented to place, speech is normal, memory intact - Labs 07/06/17 04:48 07/06/17 04:48 Vital Signs Temp Pulse Resp BP Pulse Ox 07/06/17 16:24 98.1 F 92 15 135/84 96 07/06/17 12:36 98.5 F 70 14 107/70 97 07/06/17 07:54 97.7 F 76 16 154/89 97 07/06/17 04:44 97.9 F 74 14 146/82 96 07/05/17 23:16 97.6 F 80 14 159/87 95 Intake and Output 07/06/17 07/06/17 07/06/17 07:59 15:59 23:59 Intake Total 1400 / 1400 1000 / 1000 0 / 0 Output Total 1000 / 1000 500 / 500 200 / 200 Balance 400 / 400 500 / 500 -200 / -200 Intake: IV Fluids 1400 / 1400 1000 / 1000 0.9 % Sodium Chloride 1,000 ML 1000 / 1000 1000 / 1000 @ 125 mls/hr IVC .Q8H [facility] Rx#: [id number] Ofirmev 1,000 mg/100 ml 1,000 100 / 100 mg In 100 ml @ 400 mls/hr IVPB Q6H [facility] Rx#:[id number] Cipro Premix 400 MG/200 ML 400 200 / 200 mg In 200 ml @ 200 mls/hr IVPB Q12HR [facility] Rx#:[id number] Flagyl Premix 500 MG/100 ML 500 100 / 100 mg In 100 ml @ 100 mls/hr IVPB Q8H [facility] Rx#:[id number] Oral 0 / 0 0 / 0 0 / 0 Output: Urine 1000 / 1000 500 / 500 200 / 200 Other: Weight 87.453 kg Blood Glucose* 92 95 83 Patient Weight 07/06/17 23:59 Weight 87.453 kg Short CBC 07/06/17 Range/Units 04:48 WBC 7.3 (4.3-11.1) K/mcL Hgb 11.1 L (11.5-15.4) g/dL Hct 33.0 L (35.3-44.9) % Plt Count 235 (140-400) K/mcL Neutrophils # 4.5 (1.6-8.9) K/mcL BMP 07/06/17 Range/Units 04:48 Sodium 140 (136-145) mEq/L Potassium 3.4 L (3.5-5.1) mEq/L Chloride 110 H (98-107) mEq/L Carbon Dioxide 24 (23-29) mEq/L BUN 8 (6-20) mg/dL Creatinine 0.64 (0.60-1.20) mg/dL Glucose 98 (70-105) mg/dL Calcium 8.4 L (8.6-10.3) mg/dL Liver Function 07/06/17 Range/Units 04:48 Total Bilirubin 0.5 (0.3-1.0) mg/dL AST 17 (13-39) Units/L ALT 20 (7-52) Units/L Alkaline Phosphatase 84 (34-104) Units/L Albumin 3.6 (3.5-5.7) g/dL - Imaging CT scan - abdomen: report reviewed, image reviewed CT scan - pelvis: report reviewed, image reviewed - Attending Attestation I examined this patient and my medical decision-making was reviewed with the Resident Physician. I agree with the documented findings, disposition and treatment plan as described except to the extent set forth below.
[2017-07-07] MEDS: Ketorolac 15 MG/ML VIAL IVP SCH ×3 (00:02→13:20)
[2017-07-07] MEDS: Acetaminophen IV 1,000 MG/100 ML INFUS..BTL IVPB SCH ×4 (04:13→20:00)
[2017-07-07] MEDS: OXYCODONE Oral CONC 10 MG/0.5 ML ORAL.SYG SL PRN ×4 (05:13→22:00)
[2017-07-07] MEDS: Pantoprazole 40 MG VIAL IVP SCH ×3 (06:02→19:09)
[2017-07-07] MEDS: MetroNIDAZOLE 500 MG/100 ML 500 MG/100 ML BAG IVPB SCH ×3 (06:34→20:59)
[2017-07-07 06:46] LABS: Basophils # 0.1 K/mcL (0.0-0.2); Eosinophils # 0.2 K/mcL (0.0-0.6); Eosinophils % 2.3 %; Hematocrit 37.2 % (35.3-44.9); Immature Granulocytes % 0.6 % (0-4); Lymphocytes # 2.2 K/mcL (0.6-4.6); Lymphocytes % 31.3 %; Mean Corpuscular HGB Conc 34.1 g/dL (31.6-35.5); Mean Corpuscular Hemoglobin 30.8 pg (28.0-33.3); Mean Corpuscular Volume 90.3 fL (83.0-100.0); Monocytes # 0.4 K/mcL (0.0-1.3); Monocytes % 6.3 %; Neutrophils # 4.1 K/mcL (1.6-8.9); Platelet Count 298 K/mcL (140-400); Red Blood Count 4.12 M/mcL (3.82-4.97); Segmented Neutrophils % 58.5 %
[2017-07-07 06:47] LABS: Hemoglobin 12.7 g/dL (11.5-15.4)
[2017-07-07 07:00] LABS: Alanine Aminotransferase 24 Units/L (7-52); Albumin 4.4 g/dL (3.5-5.7); Albumin/Globulin Ratio 1.8 (1.1-2.2); Alkaline Phosphatase 98 Units/L (34-104); Aspartate Amino Transferase 21 Units/L (13-39); BUN/Creatinine Ratio 9 (6-26); Bilirubin,Total 0.5 mg/dL (0.3-1.0); Blood Urea Nitrogen 6 mg/dL (6-20); Calcium 9.2 mg/dL (8.6-10.3); Carbon Dioxide 24 mEq/L (23-29); Chloride 106 mEq/L (98-107); Globulin 2.5 g/dL (2.4-3.5); Glucose 96 mg/dL (70-105); Osmolality,Calculated 285 (280-300); Potassium 3.3 mEq/L (3.5-5.1); Sodium 139 mEq/L (136-145); Total Protein 6.9 g/dL (6.4-8.9); eGFR For African Americans > 60 (> 60); eGFR For Non-African Americans > 60 (> 60)
[2017-07-07] MEDS: *HR* FentaNYL (PF) 100 MCG/2 ML VIAL IVP PRN ×2 (07:58→13:26)
[2017-07-07] MEDS ORDERED: D5% in 0.45% NACL w KCl 20 MEQ/1,000 ML MLS IVC SCH (09:15)
--- NOTE | 2017-07-07 09:41 | Internal Med Progress Note ---
<Roger Milan - Last Filed: 07/07/17 09:39> Date of Encounter: 07/07/17 Time of Encounter: 09:39 - Assessment and plan (1) Colitis Current Visit: Yes Status: Acute Assessment and plan: Patient has evidence of colitis on CT scan, etiology is unclear. Patient is nothing by mouth IV fluids Patient has analgesics ordered. Continue with Cipro and Flagyl Continue to monitor hemoglobin due to the patient having bloody stools. Surgery has been consult and is following this patient. Possible repeat CT scan of the abdomen and pelvis today per surgery (2) Intractable nausea and vomiting Current Visit: Yes Status: Resolved Assessment and plan: Patient has antiemetics ordered Qualifiers: Vomiting type: unspecified Qualified Code(s): R11.2 - Nausea with vomiting , unspecified (3) Tobacco abuse Current Visit: No Status: Chronic Assessment and plan: Recommend cessation (4) DVT prophylaxis Current Visit: Yes Status: Acute Assessment and plan: Patient has intermittent pneumatic compression ordered for DVT prophylaxis. - Subjective Interval history: Patient states that she is still having abdominal pain. Yesterday her pain as a 7 out of 10 and currently this morning and is a 9 out of 10. Patient states that she is still having pain in the left lower quadrant however she does have some intermittent pain in her right abdomen. Nursing states that she has not had a bowel movement today. - Constitutional Vitals: Temp Pulse Resp BP Pulse Ox 97.6 F 79 14 158/71 97 07/07/17 07:52 07/07/17 07:52 07/07/17 07:52 07/07/17 07:52 07/07/17 07:52 General appearance: Present: cooperative, A&O X 3, pleasant, no acute distress, answers questions appropriately - Head Head exam: Present: atraumatic, normocephalic - Neck Neck exam general surgery: Present: full ROM, normal inspection, trachea midline - Respiratory Respiratory exam: Present: CTAB. Absent: accessory muscle use, rales, rhonchi, wheezes - Cardiovascular Cardiovascular exam: Present: RRR, +S1, +S2. Absent: diastolic murmur, gallop, rubs, systolic murmur - GI/Abdominal GI/Abdominal exam: Present: soft, tenderness (Lower abdominal tenderness. The point of maximum tenderness is in the left lower quadrant.), no peritoneal signs - Extremities Exam Extremities exam: Present: warm. Absent: pedal edema, tenderness - Neurological Exam Neurological exam: Present: alert, oriented X3, no focal deficits. Absent: facial droop, speech deficit - Psychiatric Psychiatric exam: Present: normal affect, normal mood - Skin Skin exam: Present: dry, intact, warm Internal Medicine: Result - Labs CBC & Chem 7: 07/07/17 06:30 07/07/17 06:30 Labs: Short CBC 07/07/17 Range/Units 06:30 WBC 7.0 (4.3-11.1) K/mcL Hgb 12.7 D (11.5-15.4) g/dL Hct 37.2 (35.3-44.9) % Plt Count 298 (140-400) K/mcL Neutrophils # 4.1 (1.6-8.9) K/mcL BMP 07/07/17 06:30 Sodium 139 Potassium 3.3 L Chloride 106 Carbon Dioxide 24 BUN 6 Creatinine 0.64 Glucose 96 Calcium 9.2 Liver Function 07/07/17 Range/Units 06:30 Total Bilirubin 0.5 (0.3-1.0) mg/dL AST 21 (13-39) Units/L ALT 24 (7-52) Units/L Alkaline Phosphatase 98 (34-104) Units/L Albumin 4.4 (3.5-5.7) g/dL Consult Discharge Plan - Plan Referrals: Jose Eduardo Page [Primary Care Provider] - <Armaan Aviles - Last Filed: 07/07/17 17:29> Date of Encounter: 07/07/17 - Assessment and plan (1) Rectal bleeding Current Visit: Yes Status: Resolved Assessment and plan: Due to acute colitis. Appears to have resolved. (2) Colitis, infectious Current Visit: Yes Status: Suspected (3) HTN (hypertension) Current Visit: Yes Status: Chronic Qualifiers: Hypertension type: essential hypertension Qualified Code(s): I10 - Essential (primary) hypertension (4) Intractable nausea and vomiting Current Visit: Yes Status: Resolved Qualifiers: Vomiting type: unspecified Qualified Code(s): R11.2 - Nausea with vomiting , unspecified (5) Anxiety Current Visit: No Status: Chronic (6) Tobacco abuse Current Visit: No Status: Chronic - Constitutional Vitals: Temp Pulse Resp BP Pulse Ox 97.9 F 81 15 142/76 96 07/07/17 16:53 07/07/17 16:53 07/07/17 16:53 07/07/17 16:53 07/07/17 16:53 Internal Medicine: Result - Labs CBC & Chem 7: 07/07/17 06:30 07/07/17 06:30 Labs: Short CBC 07/07/17 Range/Units 06:30 WBC 7.0 (4.3-11.1) K/mcL Hgb 12.7 D (11.5-15.4) g/dL Hct 37.2 (35.3-44.9) % Plt Count 298 (140-400) K/mcL Neutrophils # 4.1 (1.6-8.9) K/mcL BMP 07/07/17 06:30 Sodium 139 Potassium 3.3 L Chloride 106 Carbon Dioxide 24 BUN 6 Creatinine 0.64 Glucose 96 Calcium 9.2 Liver Function 07/07/17 Range/Units 06:30 Total Bilirubin 0.5 (0.3-1.0) mg/dL AST 21 (13-39) Units/L ALT 24 (7-52) Units/L Alkaline Phosphatase 98 (34-104) Units/L Albumin 4.4 (3.5-5.7) g/dL - Impressions Impressions Abdomen/Pelvis CT 07/07/17 12:00 IMPRESSION: Decreased wall thickening and inflammatory pericolic stranding involving the descending colon. Intra/extrahepatic biliary ductal dilation, probably related to patient age and postcholecystectomy state. Given the ducts are slightly more prominent than the prior study, correlation for the possibility of biliary obstruction is recommended. D/ / Caty Burnette Cha, MD / Caty Burnette Cha, MD Interpreting Provider: Caty Burnette Cha, MD - Attending Attestation I examined this patient and my medical decision-making was reviewed with the Resident Physician on 07/07/17. I agree with the documented findings, disposition and treatment plan as described except to the extent set forth below. Ms Aranda is currently admitted for acute colitis and abd pain. She remains moderate to high risk due to potential for worsening clinical status. Ms Aranda had more pain this AM. Repeat CT shows improving colitis. She has been started on clear liquids. No fever or chills. No further diarrhea or bleeding. Exam alert Comfortable Mucus membranes moist Heart reg No wheeze Abd distended with some bowel sounds. Soft. Diffusely tender - worse LLQ. No edema I/P 1. Colitis Further diagnoses and plan as above.
[2017-07-07] MEDS: *HR* Promethazine 25 MG/ML VIAL IVP PRN (10:12)
[2017-07-07] MEDS: *HR* LORazepam 2 MG/ML VIAL IVP PRN (10:25)
--- NOTE | 2017-07-07 11:25 | General Surgery Progress Note ---
<GuyBrittney H - Last Filed: 07/07/17 11:44> Date of Encounter: 07/07/17 Time of Encounter: 11:25 - Assessment and Plan (1) Colitis Current Visit: Yes Status: Acute 52-year-old female with left-sided colitis. Unclear etiology. Bloody stools initially with concerns for ischemic bowel. Plan to treat medically so inflammation resolves with likely colonoscopy as an outpatient. -CT of abdomen and pelvis on 07/04/2017 demonstrates left-sided colon bowel wall thickening, edema and, and pericolonic inflammation. Also indeterminate hypervascular liver lesion on the dome of the bladder. -Needs MRI follow-up of liver lesion. -Keep NPO as patient's pain has not improved. -IVF -ABX -Pain control -Trend H&H (12.7 today, 11.1 yesterday). -Serial abdominal exams. -No improvement in pain, will obstain CT abdomen/pelvis with iv and oral contrast. -FU cdiff toxin Subjective Patient reports: still having pain, voiding w/o difficulty, flatus, no bowel movement, afebrile Objective Vital Signs - Last 8 Hours Temp Pulse Resp BP Pulse Ox 07/07/17 07:52 97.6 F 79 14 158/71 97 07/07/17 04:51 98.0 F 74 18 140/90 98 Intake and Output 07/06/17 07/07/17 07/07/17 22:59 07:59 15:59 Intake Total Output Total Balance Intake: IV Fluids 0.9 % Sodium Chloride 1,000 ML @ 125 mls/hr IVC .Q8H [facility] Rx#: [id number] Ofirmev 1,000 mg/100 ml 1,000 mg In 100 ml @ 400 mls/hr IVPB Q6H [facility] Rx#:[id number] Cipro Premix 400 MG/200 ML 400 mg In 200 ml @ 200 mls/hr IVPB Q12HR [facility] Rx#:[id number] Flagyl Premix 500 MG/100 ML 500 mg In 100 ml @ 100 mls/hr IVPB Q8H [facility] Rx#:[id number] Oral Output: Urine Other: Weight Blood Glucose* Patient Weight 07/08/17 00:59 Weight 87.62 kg - General physical appearance well developed, well nourished, moderate distress, moderate pain - Eyes normal ocular movement - ENT atraumatic, CN 2-12 grossly intact - Neck Neck exam: trachea midline - Respiratory normal expansion, normal respiratory effort, clear to auscultation - Cardiovascular Cardiovascular exam: Present: RRR, no murmurs/rubs/gallops - Abdomen Abdomen: Present: bowel sounds present, soft. Absent: guarding, rebound, rigid Abdominal Tenderness: RLQ, LLQ Hernia: none - Integumentary no rash - Neurologic CN 2-12 grossly intact, normal coordination - Musculoskeletal normal posture - Psychiatric oriented to time, oriented to person, oriented to place, speech is normal, memory intact - Labs 07/07/17 06:30 07/07/17 06:30 Diabetes panel 07/07/17 Range/Units 06:30 Sodium 139 (136-145) mEq/L Potassium 3.3 L (3.5-5.1) mEq/L Chloride 106 (98-107) mEq/L Carbon Dioxide 24 (23-29) mEq/L BUN 6 (6-20) mg/dL Creatinine 0.64 (0.60-1.20) mg/dL Glucose 96 (70-105) mg/dL Calcium 9.2 (8.6-10.3) mg/dL AST 21 (13-39) Units/L ALT 24 (7-52) Units/L Alkaline Phosphatase 98 (34-104) Units/L Albumin 4.4 (3.5-5.7) g/dL Calcium panel 07/07/17 Range/Units 06:30 Calcium 9.2 (8.6-10.3) mg/dL Albumin 4.4 (3.5-5.7) g/dL Pituitary panel 07/07/17 Range/Units 06:30 Sodium 139 (136-145) mEq/L Potassium 3.3 L (3.5-5.1) mEq/L Chloride 106 (98-107) mEq/L Carbon Dioxide 24 (23-29) mEq/L BUN 6 (6-20) mg/dL Creatinine 0.64 (0.60-1.20) mg/dL Glucose 96 (70-105) mg/dL Calcium 9.2 (8.6-10.3) mg/dL Adrenal panel 07/07/17 Range/Units 06:30 Sodium 139 (136-145) mEq/L Potassium 3.3 L (3.5-5.1) mEq/L Chloride 106 (98-107) mEq/L Carbon Dioxide 24 (23-29) mEq/L BUN 6 (6-20) mg/dL Creatinine 0.64 (0.60-1.20) mg/dL Glucose 96 (70-105) mg/dL Calcium 9.2 (8.6-10.3) mg/dL Total Bilirubin 0.5 (0.3-1.0) mg/dL AST 21 (13-39) Units/L ALT 24 (7-52) Units/L Alkaline Phosphatase 98 (34-104) Units/L Albumin 4.4 (3.5-5.7) g/dL Consult Discharge Plan - Plan Referrals: Jose Eduardo Page [Primary Care Provider] - <Selam Man - Last Filed: 07/07/17 13:36> Date of Encounter: 07/07/17 - Assessment and Plan (1) Colitis Current Visit: Yes Status: Acute although vitals stable, she is not tachycardic and wbc wnl patient continues to complain of persistent and even now LLQ pain will obtain CT to further evaluate continue abx continue npo continue prn pain control gi/dvt prophylaxis ambulate/OOB to chair TID (2) DVT prophylaxis Current Visit: Yes Status: Acute heparin sq (3) HTN (hypertension) Current Visit: Yes Status: Chronic normotensive Qualifiers: Hypertension type: essential hypertension Qualified Code(s): I10 - Essential (primary) hypertension (4) Intractable nausea and vomiting Current Visit: Yes Status: Resolved prn pain antiemetics Qualifiers: Vomiting type: unspecified Qualified Code(s): R11.2 - Nausea with vomiting , unspecified Subjective Patient reports: still having pain, voiding w/o difficulty, flatus, no bowel movement, afebrile Narrative: patient states she now has pain on right side, and pain on left abdomen is not improved since admission Objective Vital Signs - Last 8 Hours Temp Pulse Resp BP Pulse Ox 07/07/17 07:52 97.6 F 79 14 158/71 97 Intake and Output 07/06/17 07/07/17 07/07/17 22:59 07:59 15:59 Intake Total 0 / 0 Output Total Balance 0 / 0 Intake: IV Fluids 0 / 0 0.9 % Sodium Chloride 1,000 ML @ 125 mls/hr IVC .Q8H [facility] Rx#: [id number] KCl 20mEq IN D5%-0.45 NACL 20 0 / 0 meq In 1,000 ml @ 100 mls/hr IVC .Q10H [facility] Rx#:[id number] Ofirmev 1,000 mg/100 ml 1,000 mg In 100 ml @ 400 mls/hr IVPB Q6H [facility] Rx#:[id number] Cipro Premix 400 MG/200 ML 400 mg In 200 ml @ 200 mls/hr IVPB Q12HR [facility] Rx#:[id number] Flagyl Premix 500 MG/100 ML 500 mg In 100 ml @ 100 mls/hr IVPB Q8H [facility] Rx#:[id number] Oral Output: Urine Other: Weight Blood Glucose* Patient Weight 07/08/17 00:59 Weight 87.62 kg - General physical appearance well developed, well nourished, moderate pain - Eyes PERRL, normal ocular movement - ENT normal mucosa, normocephalic - Neck Neck exam: trachea midline - Respiratory normal expansion, clear to auscultation - Cardiovascular Cardiovascular exam: Present: RRR - Abdomen Abdomen: Present: bowel sounds present, soft, tender. Absent: distended, guarding, rebound Abdominal Tenderness: RLQ, LLQ - Integumentary no rash, no growths - Neurologic CN 2-12 grossly intact, normal coordination - Musculoskeletal normal posture - Psychiatric oriented to time, memory intact - Labs 07/07/17 06:30 07/07/17 06:30 Diabetes panel 07/07/17 Range/Units 06:30 Sodium 139 (136-145) mEq/L Potassium 3.3 L (3.5-5.1) mEq/L Chloride 106 (98-107) mEq/L Carbon Dioxide 24 (23-29) mEq/L BUN 6 (6-20) mg/dL Creatinine 0.64 (0.60-1.20) mg/dL Glucose 96 (70-105) mg/dL Calcium 9.2 (8.6-10.3) mg/dL AST 21 (13-39) Units/L ALT 24 (7-52) Units/L Alkaline Phosphatase 98 (34-104) Units/L Albumin 4.4 (3.5-5.7) g/dL Calcium panel 07/07/17 Range/Units 06:30 Calcium 9.2 (8.6-10.3) mg/dL Albumin 4.4 (3.5-5.7) g/dL Pituitary panel 07/07/17 Range/Units 06:30 Sodium 139 (136-145) mEq/L Potassium 3.3 L (3.5-5.1) mEq/L Chloride 106 (98-107) mEq/L Carbon Dioxide 24 (23-29) mEq/L BUN 6 (6-20) mg/dL Creatinine 0.64 (0.60-1.20) mg/dL Glucose 96 (70-105) mg/dL Calcium 9.2 (8.6-10.3) mg/dL Adrenal panel 07/07/17 Range/Units 06:30 Sodium 139 (136-145) mEq/L Potassium 3.3 L (3.5-5.1) mEq/L Chloride 106 (98-107) mEq/L Carbon Dioxide 24 (23-29) mEq/L BUN 6 (6-20) mg/dL Creatinine 0.64 (0.60-1.20) mg/dL Glucose 96 (70-105) mg/dL Calcium 9.2 (8.6-10.3) mg/dL Total Bilirubin 0.5 (0.3-1.0) mg/dL AST 21 (13-39) Units/L ALT 24 (7-52) Units/L Alkaline Phosphatase 98 (34-104) Units/L Albumin 4.4 (3.5-5.7) g/dL - Attending Attestation I examined this patient and my medical decision-making was reviewed with the Resident Physician. I agree with the documented findings, disposition and treatment plan as described except to the extent set forth below.
[2017-07-07] MEDS: Ondansetron 4 MG/2 ML VIAL IVP PRN (13:23)
[2017-07-07] MEDS ORDERED: Potassium Chloride Elixir 20 MEQ/15 ML UDC PO ONE (16:36)
[2017-07-08] MEDS: Acetaminophen IV 1,000 MG/100 ML INFUS..BTL IVPB SCH ×3 (03:09→12:54)
[2017-07-08] MEDS: *HR* LORazepam 2 MG/ML VIAL IVP PRN (03:23)
[2017-07-08] MEDS: MetroNIDAZOLE 500 MG/100 ML 500 MG/100 ML BAG IVPB SCH (03:24)
[2017-07-08 04:44] LABS: Basophils # 0.1 K/mcL (0.0-0.2); Basophils % 0.9 %; Eosinophils # 0.2 K/mcL (0.0-0.6); Eosinophils % 2.8 %; Hemoglobin 11.9 g/dL (11.5-15.4); Immature Granulocytes % 1.9 % (0-4); Lymphocytes # 1.9 K/mcL (0.6-4.6); Lymphocytes % 29.7 %; Mean Corpuscular Hemoglobin 30.8 pg (28.0-33.3); Mean Corpuscular Volume 90.7 fL (83.0-100.0); Mean Platelet Volume 10.4 fL (9.4-12.4); Monocytes # 0.5 K/mcL (0.0-1.3); Monocytes % 7.9 %; Neutrophils # 3.7 K/mcL (1.6-8.9); Nucleated Red Blood Cells 0.6 /100 WBC (0); Platelet Count 214 K/mcL (140-400); Red Blood Count 3.86 M/mcL (3.82-4.97); Segmented Neutrophils % 56.8 %
[2017-07-08] MEDS: Pantoprazole 40 MG VIAL IVP SCH (05:52)
[2017-07-08] MEDS: OXYCODONE Oral CONC 10 MG/0.5 ML ORAL.SYG SL PRN ×2 (06:05→10:18)
[2017-07-08 07:41] VITALS: BP 130/80
--- NOTE | 2017-07-08 10:46 | General Surgery Progress Note ---
<Azul Padilla - Last Filed: 07/08/17 10:35> Date of Encounter: 07/08/17 Time of Encounter: 10:00 - Assessment and Plan (1) Colitis Current Visit: Yes Status: Acute 52-year-old female with left-sided colitis wit unclear etiology. Bloody stools initially with concerns for ischemic bowel. Plan to treat medically so inflammation resolves with likely colonoscopy as an outpatient. -CT of abdomen and pelvis on 07/04/2017 demonstrates left-sided colon bowel wall thickening, edema and, and pericolonic inflammation. Also indeterminate hypervascular liver lesion on the dome of the bladder. Needs MRI follow-up of liver lesion. Repeat CT on 07/07/17 report reads decreased wall thickening and inflammatory pericolic stranding involving the descending colon. -Surgery recommends advancing diet as tolerated. Surgery also recommend oral antibiotics as tolerated. -Cdiff toxin is negative -IVF -Pain control -Serial abdominal exams. Subjective Patient reports: still having pain, flatus, afebrile Narrative: The patient was seen and evaluated this morning. Patient was afebrile and appears in no acute distress. Patient admitted she still has left lower quadrant abdominal pain that radiates to her lower umbilical region. She describes the pain as intermittent and sharp that is worse with movement but improved if she flexed knees up to her abdomen. She states that the pain is improved when compared to her initial admission pain. Patient admits flatus and bowel movements without any blood. She denies any fever, headache, vision changes, chest pain, faculty urinating, blood in her urine, numbness and tingling, and any weaknesses. The patient has no other concerns at this time. Objective Vital Signs - Last 8 Hours Temp Pulse Resp BP Pulse Ox 07/08/17 07:40 98.8 F 84 16 130/80 96 07/08/17 05:35 97.7 F 65 15 129/66 98 Intake and Output 07/07/17 07/08/17 07/08/17 23:59 07:59 15:59 Intake Total 640 / 640 260 / 260 630 / 630 Output Total 500 / 500 0 / 0 Balance 140 / 140 260 / 260 630 / 630 Intake: IV Fluids 400 / 400 200 / 200 150 / 150 Ofirmev 1,000 mg/100 ml 1,000 100 / 100 100 / 100 mg In 100 ml @ 400 mls/hr IVPB Q6H [facility] Rx#:[id number] Cipro Premix 400 MG/200 ML 400 200 / 200 150 / 150 mg In 200 ml @ 200 mls/hr IVPB Q12HR [facility] Rx#:[id number] Flagyl Premix 500 MG/100 ML 500 100 / 100 100 / 100 mg In 100 ml @ 100 mls/hr IVPB Q8H [facility] Rx#:[id number] Oral 240 / 240 60 / 60 480 / 480 Output: Urine 500 / 500 0 / 0 Other: Meal Clears Percent of Meal Consumed 0% Stool Size Small Stool Consistency loose # Bowel Movements 1 Weight 87.3 kg Patient Weight 07/08/17 23:59 Weight 87.3 kg - General physical appearance well developed, well nourished, no distress - Eyes PERRL, normal ocular movement - ENT normal mucosa - Neck Neck exam: trachea midline, no lymphadectomy - Respiratory normal expansion, normal respiratory effort, clear to auscultation - Cardiovascular Cardiovascular exam: Present: RRR, no murmurs/rubs/gallops - Abdomen Abdomen: Present: bowel sounds present, soft, tender (Tender to palpation predominantly in the left lower quadrant. Mild tenderness to palpation underneath the umbilicus.) Abdominal Tenderness: LLQ Hernia: none - Integumentary no rash - Neurologic CN 2-12 grossly intact, normal sensation - Psychiatric oriented to time, oriented to person, oriented to place - Labs 07/08/17 04:25 07/07/17 06:30 Consult Discharge Plan - Plan Referrals: Jose Eduardo Page [Primary Care Provider] - 07/11/17 10:00 am Chavez Gamboa MD [Non-Partnered Physician] - 08/07/17 1:45 pm <Chavez Gamboa - Last Filed: 07/08/17 12:03> Date of Encounter: 07/08/17 - Assessment and Plan (1) Colitis Current Visit: Yes Status: Acute Objective Vital Signs - Last 8 Hours Temp Pulse Resp BP Pulse Ox 07/08/17 07:40 98.8 F 84 16 130/80 96 07/08/17 05:35 97.7 F 65 15 129/66 98 Intake and Output 07/07/17 07/08/17 07/08/17 23:59 07:59 15:59 Intake Total 640 / 640 260 / 260 630 / 630 Output Total 500 / 500 0 / 0 Balance 140 / 140 260 / 260 630 / 630 Intake: IV Fluids 400 / 400 200 / 200 150 / 150 Ofirmev 1,000 mg/100 ml 1,000 100 / 100 100 / 100 mg In 100 ml @ 400 mls/hr IVPB Q6H [facility] Rx#:[id number] Cipro Premix 400 MG/200 ML 400 200 / 200 150 / 150 mg In 200 ml @ 200 mls/hr IVPB Q12HR [facility] Rx#:[id number] Flagyl Premix 500 MG/100 ML 500 100 / 100 100 / 100 mg In 100 ml @ 100 mls/hr IVPB Q8H [facility] Rx#:[id number] Oral 240 / 240 60 / 60 480 / 480 Output: Urine 500 / 500 0 / 0 Other: Meal Clears Percent of Meal Consumed 0% Stool Size Small Stool Consistency loose # Bowel Movements 1 Weight 87.3 kg Patient Weight 07/08/17 23:59 Weight 87.3 kg - Labs 07/08/17 04:25 07/07/17 06:30 - Attending Attestation I have personally seen and examined the patient. I have reviewed pertinent labs , imaging, progress notes, including this one. I agree with the above assessment and plan and wish to include the following... 52F with L sided colitis; improving; decreased pain; having bowel function; tolerating liquids; non peritoneal; okay to advance diet as tolerated; transition to PO abx; if patient tolerates diet, then can d/c with plans to see me in my clinic; Thank you for allowing me to take part in the care of this patient; Surgery will sign off, but please call back if there are any questions or new concerns
[2017-07-08] MEDS ORDERED: hydrOXYzine pamoate 25 MG CAPSULE PO PRN (11:58)
[2017-07-08] MEDS ORDERED: tiZANidine 4 MG TABLET PO PRN (11:58)
[2017-07-08] MEDS ORDERED: Ondansetron ODT 4 MG TAB.RAPDIS SL PRN (11:58)
[2017-07-08] MEDS ORDERED: metroNIDAZOLE 500 MG TABLET PO SCH (12:00)
[2017-07-08] MEDS ORDERED: Furosemide 40 MG TABLET PO SCH (12:00)
--- NOTE | 2017-07-08 12:49 | Discharge Summary ---
Date of Encounter: 07/08/17 Time of Encounter: 11:50 - Discharge Diagnosis (1) Rectal bleeding Priority: Primary Status: Resolved (2) Colitis, infectious Priority: Primary Status: Suspected (3) HTN (hypertension) Priority: Secondary Status: Chronic Qualifiers: Hypertension type: essential hypertension Qualified Code(s): I10 - Essential (primary) hypertension (4) Intractable nausea and vomiting Priority: Secondary Status: Resolved Qualifiers: Vomiting type: unspecified Qualified Code(s): R11.2 - Nausea with vomiting , unspecified (5) Anxiety Priority: Secondary Status: Chronic (6) Tobacco abuse Priority: Secondary Status: Chronic (7) Hypokalemia Priority: Secondary Status: Resolved Hospital course: Ms. Aranda is a 52 year old female presented to ED with complaints of rectal bleeding and abdominal pain. She was found to have colitis on her CT. She was placed on IV abx and subsequently admitted. Ms Aranda was admitted to med surg. She was placed on IV fluids and abx. She was made NPO. She had gradual improvement in her diarrhea and bleeding. No fever. She had significant pain that was treated with pain meds. On 07/07 she had some improvement in symptoms and CT showed improvement. She was started on clear liquids. Today she was doing much better and diet was advanced. She was changed to PO abx. She tolerated diet and was felt stable for discharge home. Discharge discussed with: patient Time spent discussing smoking cessation with patient: 3 to 10 minutes - Time Spent with Patient Total time spent providing and/or coordinating discharge services: 42min - Discharge Medications Prescriptions: Ciprofloxacin [Cipro] 500 mg PO BID #20 tablet metroNIDAZOLE [Flagyl] 500 mg PO TID #30 tablet Home Medications: ALPRAZolam [Xanax 1 MG Tablet] 1 mg PO BID 11/24/15 [History] Aripiprazole [Abilify] 15 mg PO DAILY 03/17/16 [History] Cholecalciferol (Vitamin D3) [Vitamin D3] 2,000 unit PO DAILY 03/17/16 [History] Furosemide [Lasix] 40 mg PO Q48H 03/17/16 [History] Prazosin HCl 2 mg PO HS 03/17/16 [History] Spironolactone [Aldactone] 25 mg PO DAILY 03/17/16 [History] lamoTRIgine [Lamotrigine] 125 mg PO BID 03/17/16 [History] Atorvastatin Calcium [Lipitor] 40 mg PO DAILY 11/06/16 [History] Ondansetron HCl [Zofran] 4 mg PO Q8H PRN 11/06/16 [History] Tizanidine HCl [Zanaflex] 4 mg PO TID PRN 11/06/16 [History] Meclizine [Antivert] 25 mg PO TID PRN 12/28/16 [History] Oxycodone HCl/Acetaminophen [Percocet 5-325 mg Tablet] 1 tab PO TID PRN [History] Pantoprazole Sodium 40 mg PO DAILY 12/28/16 [History] hydrOXYzine pamoate [HydrOXYzine Pamoate] 50 mg PO QID PRN 12/28/16 [History] Amlodipine Besylate 10 mg PO DAILY 07/04/17 [History] Nortriptyline HCl 50 mg PO HS 07/04/17 [History] Quetiapine Fumarate [Seroquel] 200 mg PO HS 07/05/17 [History] Ciprofloxacin [Cipro] 500 mg PO BID #20 tablet 07/08/17 [Rx] metroNIDAZOLE [Flagyl] 500 mg PO TID #30 tablet 07/08/17 [Rx] Allergies/Adverse Reactions: 3 Allergy/AdvReac Type Severity Reaction Status Date / Time aspirin Allergy Rash Verified 05/24/17 17:55 codeine Allergy Swelling Verified 05/24/17 17:55 of Lip/Tongue/Throat Cyclobenzaprine Allergy Rash Verified 05/24/17 17:55 [From Flexeril] gabapentin Allergy Rash Verified 05/24/17 17:55 hydrocodone [From Vicodin] Allergy Rash Verified 05/24/17 17:55 latex Allergy Rash Verified 05/24/17 17:55 tramadol [From Ultram] Allergy Rash Verified 05/24/17 17:55 Date of admission: 07/04/17 19:47 Primary care physician: Jose Eduardo Page Consults: 07/04/17 20:36 Consult to Nutrition [CONS] Routine Comment: Consulting Provider: NUTRITION Reason for Dietary Consult: MST Score Discharging clinician: Armaan Aviles Anticipated date of discharge: 07/08/17 - Constitutional Vitals: Temp Pulse Resp BP Pulse Ox 98.8 F 84 16 130/80 96 07/08/17 07:40 03/12/18 07:40 07/08/17 07:40 07/08/17 07:40 07/08/17 07:40 General appearance: Present: cooperative, A&O X 3, pleasant, answers questions appropriately - Head Head exam: Present: normocephalic - Eye Eye exam: Present: conjuntiva pink - ENT ENT exam: Present: mucous membranes moist - Respiratory Respiratory exam: Present: CTAB. Absent: rales, rhonchi, wheezes - Cardiovascular Cardiovascular exam: Present: RRR. Absent: tachycardia - GI/Abdominal GI/Abdominal exam: Present: normal bowel sounds, soft, tenderness Additional comments: Tenderness improved - Extremities Exam Extremities exam: Present: warm. Absent: tenderness - Neurological Exam Neurological exam: Present: alert, oriented X3, no focal deficits - Skin Skin exam: Present: dry, warm - Patient Status Disposition: Home Health Service Condition: Fair Functional capacity at discharge: independent ambulation Overall status at discharge: patient is progressing back to baseline - Discharge Instructions Follow Up With: Jose Eduardo Page [Primary Care Provider] - 07/11/17 10:00 am Chavez Gamboa MD [Non-Partnered Physician] - 08/07/17 1:45 pm - Diet and Activity Activity: increase activity as tolerated Diet: advance to your usual diet
--- NOTE | 2017-07-08 15:56 | Physician Discharge Referral ---
Home Health/Hosp Referral Info Transfer to: Home Health Provider in Charge Post Discharge: PCP - Diagnosis (1) Rectal bleeding Priority: Primary Status: Resolved (2) Colitis, infectious Priority: Primary Status: Suspected (3) HTN (hypertension) Priority: Secondary Status: Chronic (4) Intractable nausea and vomiting Priority: Secondary Status: Resolved (5) Anxiety Priority: Secondary Status: Chronic (6) Tobacco abuse Priority: Secondary Status: Chronic (7) Hypokalemia Priority: Secondary Status: Resolved - Respiratory Orders Smoking Cessation: Smoking cessation has been advised. For more information, call the [place] Tobacco Quit Line at 2-398-ZSAU-NOW. - Diet/Nutrition Diet/Nutrition Orders: Cardiac - Activity Activity Orders: Up ad dutch - Services Needed Following services are medically necessary services: Nursing, Home Health Aide - Transfer Medications Prescriptions: Ciprofloxacin [Cipro] 500 mg PO BID #20 tablet metroNIDAZOLE [Flagyl] 500 mg PO TID #30 tablet Home Medications: ALPRAZolam [Xanax 1 MG Tablet] 1 mg PO BID 11/24/15 [History] Aripiprazole [Abilify] 15 mg PO DAILY 03/17/16 [History] Cholecalciferol (Vitamin D3) [Vitamin D3] 2,000 unit PO DAILY 03/17/16 [History] Furosemide [Lasix] 40 mg PO Q48H 03/17/16 [History] Prazosin HCl 2 mg PO HS 03/17/16 [History] Spironolactone [Aldactone] 25 mg PO DAILY 03/17/16 [History] lamoTRIgine [Lamotrigine] 125 mg PO BID 03/17/16 [History] Atorvastatin Calcium [Lipitor] 40 mg PO DAILY 11/06/16 [History] Ondansetron HCl [Zofran] 4 mg PO Q8H PRN 11/06/16 [History] Tizanidine HCl [Zanaflex] 4 mg PO TID PRN 11/06/16 [History] Meclizine [Antivert] 25 mg PO TID PRN 12/28/16 [History] Oxycodone HCl/Acetaminophen [Percocet 5-325 mg Tablet] 1 tab PO TID PRN [History] Pantoprazole Sodium 40 mg PO DAILY 12/28/16 [History] hydrOXYzine pamoate [HydrOXYzine Pamoate] 50 mg PO QID PRN 12/28/16 [History] Amlodipine Besylate 10 mg PO DAILY 07/04/17 [History] Nortriptyline HCl 50 mg PO HS 07/04/17 [History] Quetiapine Fumarate [Seroquel] 200 mg PO HS 07/05/17 [History] Ciprofloxacin [Cipro] 500 mg PO BID #20 tablet 07/08/17 [Rx] metroNIDAZOLE [Flagyl] 500 mg PO TID #30 tablet 07/08/17 [Rx] Allergies/Adverse Reactions: 3 Allergy/AdvReac Type Severity Reaction Status Date / Time aspirin Allergy Rash Verified 05/24/17 17:55 codeine Allergy Swelling Verified 05/24/17 17:55 of Lip/Tongue/Throat Cyclobenzaprine Allergy Rash Verified 05/24/17 17:55 [From Flexeril] gabapentin Allergy Rash Verified 05/24/17 17:55 hydrocodone [From Vicodin] Allergy Rash Verified 05/24/17 17:55 latex Allergy Rash Verified 05/24/17 17:55 tramadol [From Ultram] Allergy Rash Verified 05/24/17 17:55 Certification: Further, I certify that my clinical findings support that this patient is homebound (i.e. absences from home require considerable and taxing effort and are for medical reasons or shinto services or infrequently or short duration when for other reasons) because: Homebound Reason: Leaving home requires considerable and taxing effort due to condition, Severity of cardiac or pulmonary status limits activity tolerance Attestation: My signature below is to certify that this patient is under my care and that I, or nurse practitioner, or a physician's under water assistant working with me, has a face-to -face encounter with this patient.
[2017-07-08] MEDS ORDERED: lamoTRIgine 100 MG TABLET PO SCH (21:00)
[2017-07-08] MEDS ORDERED: ALPRAZolam 1 MG TABLET PO SCH (21:00)
[2017-07-09] MEDS ORDERED: amLODIPine 5 MG TABLET PO SCH (09:00)
[2017-07-09] MEDS ORDERED: ARIPiprazole 10 MG TABLET PO SCH (09:00)
[2017-07-09] MEDS ORDERED: Spironolactone 25 MG TABLET PO SCH (09:00)
[2017-07-09] MEDS ORDERED: Cholecalciferol (D-3) 1,000 UNIT TABLET PO SCH (09:00)
== END 2017-07-08 16:03 | disposition home health service (06) | DRG 249 ==
LOC: 3ANU 12:06 → EMEROO 12:06 → SUATTDRO 19:47 → OBSVTOIN 19:47 → 3ANU 20:47
PROVIDERS: ADMIT Family Medicine; ATTEND Internal Medicine